=== PATIENT | female | born 1960 | race Caucasian/White ===

== ENCOUNTER 2017-08-07 18:09 | Emergency (ER) | payer OTHER, BC ==
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
[2017-08-07] MEDS ORDERED: HYDROmorphone 1 MG/ML 1 ML SYRINGE IVP STA (19:09)
[2017-08-07] MEDS ORDERED: hydrALAZINE HCL 20 MG/ML 1 ML VIAL IVP STA (19:09)
[2017-08-07 19:29] VITALS: BP 210/101; PULSE 72; RESP 18; TEMP 97.7
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
[2017-08-07 19:36] LABS: Basophils # (A) 0.1 k/uL (0-0.2); Basophils % (A) 1 %; CHCM 34.1; Eosinophils # (A) 0.4 k/uL (0-0.7); Eosinophils % (A) 4 %; HCT 39.9 % (34.0-46.0); HDW 2.55; HGB 13.8 gm/dL (11.4-16.0); Luc # (Auto) 0.09; Luc % (Auto) 1; Lymphocytes # (A) 1.8 k/uL (1.0-4.8); Lymphocytes % (A) 18 %; MCH 29.5 pg (25.0-35.0); MCHC 34.6 g/dL (31.0-37.0); MCV 85.4 fL (80.0-100.0); Mean Platelet Volume 6.9; Monocytes # (A) 0.4 k/uL (0-1.0); Monocytes % (A) 4 %; Neutrophils % (A) 72 %; RBC 4.68 m/uL (3.80-5.40); RDW 13.5 % (11.5-15.5); WBC 9.8 k/uL (3.8-10.6); WBC (Perox) 9.95
[2017-08-07 19:45] LABS: ALT 33 U/L (9-52); AST 22 U/L (14-36); Alkaline Phosphatase 107 U/L (38-126); Anion Gap 10 mmol/L; Blood Urea Nitrogen 16 mg/dL (7-17); Calcium 9.7 mg/dL (8.4-10.2); Carbon Dioxide 24 mmol/L (22-30); Chloride 108 mmol/L (98-107); Glucose 118 mg/dL (74-99); Non-African American GFR(MDRD) >60 (>60 ml/min/1.73 sqM); Potassium 4.1 mmol/L (3.5-5.1); Sodium 142 mmol/L (137-145); Total Bilirubin 0.4 mg/dL (0.2-1.3); Total Protein 7.4 g/dL (6.3-8.2)
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
--- NOTE | 2017-08-07 21:06 | XR ---
EXAMINATION TYPE: XR chest 2V DATE OF EXAM: 08/07/2017 COMPARISON: NONE HISTORY: Chest pain. TECHNIQUE: Frontal and lateral views of the chest are obtained. FINDINGS: There is a linear strand of atelectasis at the left lung base. The lungs are otherwise magui ar. No pneumothorax or pleural effusion is identified. The cardiac silhouette is within normal limits . IMPRESSION: Linear strand of atelectasis is noted at the left lung base.
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
[2017-08-07] MEDS ORDERED: MORPHINE SULFATE 4 MG/ML SYRINGE IVP STA (21:31)
[2017-08-07] MEDS ORDERED: KETOROLAC 30 MG/ML 1 ML VIAL IVP STA (21:36)
== END 2017-08-07 22:42 | disposition home or self-care (01) ==
LOC: EC 18:09
DX: S16.1XXA Strain of muscle, fascia and tendon at neck level, initial encounter (principal); R51 Headache; M25.561 Pain in right knee; M25.562 Pain in left knee; E03.9 Hypothyroidism, unspecified; Z79.899 Other long term (current) drug therapy; V23.5XXA Motorcycle passenger injured in collision with car, pick-up truck or van in traffic accident, initial encounter; Y92.410 Unspecified street and highway as the place of occurrence of the external cause
CPT/HCPCS: 99284; 96374; 36415; 93005; 80053; 85025; 71020; 72110; 72170; 73564 ×2; 72125; 70450; J1170

== ENCOUNTER 2018-04-24 06:21 | Emergency (ER) | payer BC, OTHER ==
[2018-04-24 06:29] VITALS: BP 175/79; PULSE 82; RESP 18; TEMP 97
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
--- NOTE | 2018-04-24 07:21 | ED ---
General Adult HPI - General Chief complaint: Extremity Injury, Lower Stated complaint: Knee Injury, [facility] Time Seen by Provider: 04/24/18 07:00 Source: patient, RN notes reviewed Mode of arrival: ambulatory Limitations: physical limitation - History of Present Illness Initial comments: This a 57-year-old female who states she was at work tonight when she twisted her knee and felt a pop in the posterior aspect of her knee. Patient states it began to be difficult to stand at that point. Patient states any movement seems to hurt the posterior aspect of her knee. Patient denies any swelling to the knee. Patient denies any instability chest pain. Patient denies any ankle pain or foot pain. patient denies any hip pain. - Related Data Home Medications Medication Instructions Recorded Confirmed HYDROcodone/APAP 5-325MG [[place] 1 tab PO TID PRN 08/07/17 04/24/18 5-325] Levothyroxine Sodium [Synthroid] 88 mcg PO DAILY 08/07/17 04/24/18 Allergies Allergy/AdvReac Type Severity Reaction Status Date / Time No Known Allergies Allergy Verified 04/24/18 06:28 Review of Systems ROS Statement: Those systems with pertinent positive or pertinent negative responses have been documented in the HPI. ROS Other: All systems not noted in ROS Statement are negative. 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 Patient is in mild distress. EYES Patient's pupils are equal and round. Extraocular motion is intact SKIN Unremarkable NEURO The patient is alert and oriented 3 PYSCH Patient has normal interpersonal interactions. MUSCULOSKELETAL Patient's has no ligamentous laxity. Patient's posterior knee is tender to palpation no swelling is noted. Patient has no effusion. Limitations: physical limitation Course Vital Signs 04/24/18 06:25 Temperature 97.0 F L Pulse Rate 82 Respiratory 18 Rate Blood Pressure 175/79 O2 Sat by Pulse 97 Oximetry Disposition Clinical Impression: Knee sprain Disposition: HOME SELF-CARE Instructions: Knee Sprain (ED) Is patient prescribed a controlled substance at d/c from ED?: No Referrals: Hank Ndiaye MD [Primary Care Provider] - 1-2 days Matthew Mo MD [STAFF PHYSICIAN] - 1-2 days Time of Disposition: 07:24
== END 2018-04-24 07:57 | disposition home or self-care (01) ==
LOC: EC 06:21
DX: S83.91XA Sprain of unspecified site of right knee, initial encounter (principal); E07.9 Disorder of thyroid, unspecified; F17.200 Nicotine dependence, unspecified, uncomplicated; Z79.899 Other long term (current) drug therapy; X50.1XXA Overexertion from prolonged static or awkward postures, initial encounter; Y93.01 Activity, walking, marching and hiking; Y92.69 Other specified industrial and construction area as the place of occurrence of the external cause; Y99.0 Civilian activity done for income or pay
CPT/HCPCS: 73562; 99283; L1830

== ENCOUNTER → 2018-04-24 | Outpatient (CLI) | payer OTHER ==
--- NOTE | 2018-04-24 13:20 | CT ---
EXAMINATION TYPE: CT knee RT wo con DATE OF EXAM: 04/24/2018 COMPARISON: NONE HISTORY: Rt knee internal derangement, Pt states knee gave out CT DLP: 369 mGycm Automated exposure control for dose reduction was used. Unenhanced CT of the right knee was performed in the axial coronal and sagittal planes with bone and soft tissue window settings submitted. FINDINGS: I do not see evidence for a displaced fracture or dislocation. Small suprapatellar joint effusion is noted. Mild patellar spurring is identified. Mild narrowing medial tibiofemoral joint space. Intercon dylar spur formation is mild degree. Meniscal, ligamentous and tendinous structures are limited in ev aluation. If symptoms persist consider MRI correlation. IMPRESSION: 1. NO EVIDENCE FOR ACUTE FRACTURE OR DISLOCATION. 2. MILD DEGENERATIVE CHANGE. 3. JOINT EFFUSION.
== END | disposition home or self-care (01) ==
LOC: RADXRMAIN 12:40
PROVIDERS: ATTEND Emergency Medicine
DX: M25.462 Effusion, left knee (principal)

== ENCOUNTER → 2018-11-15 | Outpatient (CLI) | payer BC ==
--- NOTE | 2018-11-16 14:47 | MM ---
Reason for exam: screening (asymptomatic). History: Patient is postmenopausal. Physical Findings: A clinical breast exam by your physician is recommended on an annual basis and results should be correlated with mammographic findings. MG Screening Mammo w CAD Bilateral CC and MLO view(s) were taken. No prior studies available for comparison. The breast tissue is heterogeneously dense. This may lower the sensitivity of mammography. There is no discrete abnormality. No significant changes when compared with prior studies. ASSESSMENT: Benign, BI-RAD 2 RECOMMENDATION: Routine screening mammogram of both breasts in 1 year.
== END ==
LOC: RADMAMWWP 06:47
PROVIDERS: ATTEND Internal Medicine
DX: Z12.31 Encounter for screening mammogram for malignant neoplasm of breast (principal)
CPT/HCPCS: 77067

== ENCOUNTER 2019-02-07 06:13 | Observation (INO) | payer BC ==
[2019-02-07 06:59] LABS: Basophils # (A) 0.1 k/uL (0-0.2); Basophils % (A) 0 %; Eosinophils # (A) 0.4 k/uL (0-0.7); Eosinophils % (A) 3 %; HCT 42.8 % (34.0-46.0); HGB 13.8 gm/dL (11.4-16.0); Lymphocytes # (A) 1.8 k/uL (1.0-4.8); Lymphocytes % (A) 14 %; MCH 27.5 pg (25.0-35.0); MCHC 32.1 g/dL (31.0-37.0); MCV 85.5 fL (80.0-100.0); Mean Platelet Volume 7.4; Monocytes # (A) 0.6 k/uL (0-1.0); Monocytes % (A) 4 %; Neutrophils # (A) 10.6 k/uL (1.3-7.7); Neutrophils % (A) 78 %; Platelet Count 309 k/uL (150-450); RBC 5.01 m/uL (3.80-5.40); RDW 14.3 % (11.5-15.5); WBC 13.5 k/uL (3.8-10.6)
[2019-02-07 07:11] LABS: Albumin 4.7 g/dL (3.5-5.0); Calcium 10.1 mg/dL (8.4-10.2); Magnesium 1.9 mg/dL (1.6-2.3); Total Bilirubin 0.8 mg/dL (0.2-1.3); Total Protein 8.1 g/dL (6.3-8.2)
[2019-02-07 07:12] LABS: Potassium 4.6 mmol/L (3.5-5.1)
--- NOTE | 2019-02-07 07:13 | XR ---
EXAMINATION TYPE: XR chest 2V DATE OF EXAM: 02/07/2019 COMPARISON: Chest x-ray August 07, 2017 HISTORY: Chest pain. TECHNIQUE: Frontal and lateral views of the chest are obtained. FINDINGS: Overlying EKG leads are seen. There is chronic parenchymal change without suspicious air sp josy opacity, pleural effusion, or pneumothorax seen. The cardiac silhouette size is upper limits of normal. Slight S-shaped scoliotic curvature is present. IMPRESSION: Chronic parenchymal changes without acute pulmonary process.
[2019-02-07 07:18] LABS: Partial Thromboplastin Time 27.7 sec (22.0-30.0); Prothrombin Time 10.6 sec (9.0-12.0)
--- NOTE | 2019-02-07 07:47 | ED ---
Chest Pain HPI - General Chief Complaint: Chest Pain Stated Complaint: Chest Pain/Lightheaded/Cold Sweat Time Seen by Provider: 02/07/19 06:38 Source: patient Mode of arrival: wheelchair Limitations: no limitations - History of Present Illness Initial Comments: Lily is a 58-year-old female with a history of hypothyroid who presents the emergency department this morning for evaluation of pressure-like retrosternal chest pain with associated lightheadedness and diaphoresis. Patient reports the pain started suddenly this morning, was initially 10 on 10 intensity has improved somewhat upon arrival he emergency department. Patient has no known cardiac history. She denies any history of hypertension or hyperlipidemia. She is a smoker. She's never been evaluated by cardiology. - Related Data Home Medications Medication Instructions Recorded Confirmed HYDROcodone/APAP 5-325MG [[place] 1 tab PO QID PRN 08/07/17 02/07/19 5-325] Ibuprofen [Motrin] 800 mg PO TID PRN 02/07/19 02/07/19 Levothyroxine Sodium [Synthroid] 100 mcg PO DAILY 02/07/19 02/07/19 Allergies Allergy/AdvReac Type Severity Reaction Status Date / Time No Known Allergies Allergy Verified 02/07/19 07:33 Review of Systems ROS Statement: Those systems with pertinent positive or pertinent negative responses have been documented in the HPI. ROS Other: All systems not noted in ROS Statement are negative. EKG Findings - EKG Comments: EKG Findings:: EKG obtained at 6:31 AM, rate is 79 rhythm is sinus there is a normal axis and normal intervals , IN 192, QRS 82, QTc 449, no acute ST elevations or depressions no evidence of acute ischemia or infarction. 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 Patient is nontoxic and well- hydrated and is in no distress. HENT: Normocephalic, Atraumatic. EYES: PERRL, EOMI PULMONARY: Unlabored respirations. No audible rales rhonchi or wheezing was noted. CARDIOVASCULAR: There is a regular rate and rhythm without any murmurs gallops or rubs. ABDOMEN: Soft and nontender with normal bowel sounds. SKIN: Skin is clear with no lesions or rashes and otherwise unremarkable. : Deferred NEUROLOGIC: Patient is alert and oriented x3. Moving all extremities spontaneously MUSCULOSKELETAL: Normal extremities with adequate strength and full range of motion. No lower extremity swelling or edema. No calf tenderness. PSYCHIATRIC: Normal psychiatric evaluation. Limitations: no limitations Limitations: no limitations Course Vital Signs 02/07/19 02/07/19 06:18 07:02 Temperature 98.2 F Pulse Rate 83 78 Respiratory 18 18 Rate Blood Pressure 166/83 168/77 O2 Sat by Pulse 97 99 Oximetry Chest Pain MDM - [facility] The patient was seen and evaluated history is obtained from patient and at bed side This is a 58-year-old obese female smoker noted to be hypertensive who presents to the emergency department today for evaluation of retrosternal chest pain with associated shortness of breath and diaphoresis This history and physical exam are concerning for cardiac etiology of chest pain Heart score 5 - age, risk factors, history EKG was nonischemic, chest x-ray no acute findings, treatment initial troponin was negative however given the immediate onset of chest pain do feel the patient warrants further evaluation serial troponins and valuation by cardiology. Patient care was discussed with her primary care physician Dr. Ndiaye who is with this plan excepts the patient observation with a consult to cardiology. Admission orders were placed Disposition Clinical Impression: Chest pain Disposition: ADMITTED IP TO THIS HOSP Condition: Stable Is patient prescribed a controlled substance at d/c from ED?: No Referrals: Hank Ndiaye MD [Primary Care Provider] - 1-2 days
[2019-02-07] MEDS ORDERED: NITROGLYCERIN SL TABS 0.4 MG TAB SUBLINGUAL PRN (08:09)
[2019-02-07] MEDS ORDERED: PNEUMOCOCCAL VACC-PNEUMOVAX 23 25 MCG/0.5 ML VIAL IM ONE (11:09)
--- NOTE | 2019-02-07 14:18 | ECHOF ---
Referral Reason:chest pain MEASUREMENTS -------- HEIGHT: 152.4 cm WEIGHT: 90.7 kg BP: 140/55 RVIDd: 3.0 cm (< 3.3) IVSd: 1.2 cm (0.6 - 1.1) LVIDd: 3.9 cm (3.9 - 5.3) LVPWd: 1.1 cm (0.6 - 1.1) IVSs: 1.7 cm LVIDs: 2.2 cm LVPWs: 1.6 cm LA Diam: 3.2 cm (2.7 - 3.8) LAESV Index (A-L): 27.84 ml/m Ao Diam: 3.2 cm (2.0 - 3.7) AV Cusp: 1.6 cm (1.5 - 2.6) MV EXCURSION: 11.236 mm (> 18.000) MV EF SLOPE: 35 mm/s (70 - 150) EPSS: 0.4 cm MV E Rene: 0.81 m/s MV DecT: 268 ms MV A Rene: 1.04 m/s MV E/A Ratio: 0.79 RAP: 5.00 mmHg RVSP: 30.01 mmHg FINDINGS -------- Sinus rhythm. This was a technically adequate study. The left ventricular size is normal. There is borderline concentric left ventricular hypertrophy. Overall left ventricular systolic function is normal with, an EF between 60 - 65 %. The right ventricle is normal in size. Normal LA size by volume 22+/-6 ml/m2. The right atrium is normal in size. The aortic valve is trileaflet and appears structurally normal. There is trace mitral regurgitation. Mild tricuspid regurgitation present. Right ventricular systolic pressure is normal at < 35 mmHg. There is no pulmonic regurgitation present. The aortic root size is normal. Normal inferior vena cava with normal inspiratory collapse consistent with estimated right atrial pre ssure of 5 mmHg. There is no pericardial effusion. CONCLUSIONS -------- 1. Sinus rhythm. 2. This was a technically adequate study. 3. The left ventricular size is normal. 4. There is borderline concentric left ventricular hypertrophy. 5. Overall left ventricular systolic function is normal with, an EF between 60 - 65 %. 6. The right ventricle is normal in size. 7. Normal LA size by volume 22+/-6 ml/m2. 8. The right atrium is normal in size. 9. The aortic valve is trileaflet and appears structurally normal. 10. There is trace mitral regurgitation. 11. Mild tricuspid regurgitation present. 12. Right ventricular systolic pressure is normal at < 35 mmHg. 13. There is no pulmonic regurgitation present. 14. The aortic root size is normal. 15. Normal inferior vena cava with normal inspiratory collapse consistent with estimated right atrial pressure of 5 mmHg. 16. There is no pericardial effusion. OCCUPATIONAL SAFETY AND HEALTH MANAGER: Lauren Varghese RDCS
[2019-02-07] MEDS ORDERED: ACETAMINOPHEN TAB 325 MG TAB PO PRN (15:00)
[2019-02-07] MEDS ORDERED: ONDANSETRON 4 MG/2 ML VIAL IVP PRN (15:00)
--- NOTE | 2019-02-07 16:11 | P.HPIM ---
History of Present Illness H&P Date: 02/07/19 This is a 58-year-old female patient presenting to the ER with complaints of chest pain. Patient reports that chest pain started throughout night while she was at work. Patient reports that she became diaphoretic. Patient denies any significant cardiac history for self but does report that her father and brothers both had MIs. Patient's additional medical history includes osteoarthritis, hypothyroidism and recent sinus infection. Chest x-ray completed showing chronic parenchymal changes without acute pulmonary process. EKG completed showing normal sinus rhythm. Possible left atrial enlargement. Troponin negative. Cardiology services have been consulted. At this time patient denies any chest pain or shortness of breath. Patient denies nausea vomiting or diarrhea. Patient denies any urinary burning patient's white blood cell slightly elevated at 13.5. Will order urinary analysis. Review of Systems please refer to HPI otherwise unremarkable Past Medical History Past Medical History: Osteoarthritis (OA), Thyroid Disorder Additional Past Medical History / Comment(s): Chronic cervical pain/herniated disks in neck, arthritis in knees/feet, recent sinus infection treated with anti biotic. History of Any Multi-Drug Resistant Organisms: None Reported Past Surgical History: Orthopedic Surgery, Tubal Ligation Additional Past Surgical History / Comment(s): R knee arthroscopy Past Anesthesia/Blood Transfusion Reactions: No Reported Reaction Past Psychological History: No Psychological Hx Reported Additional Psychological History / Comment(s): Pt resides with her spouse. She works 6pm-6am for [employer]. She does alot of lifting, pushing and pulling. She does not drive, her spouse drives. Smoking Status: Current every day smoker Past Alcohol Use History: None Reported Additional Past Alcohol Use History / Comment(s): Pt started smoking in 1974 and is a ppd smoker. Past Drug Use History: None Reported - Past Family History Father Additional Family Medical History / Comment(s): Father had heart problems. He had surgery and "it didn't go too well" and he . Mother Family Medical History: Cancer Additional Family Medical History / Comment(s): Mother of lung cancer at the age of 70 yrs. Medications and Allergies Home Medications Medication Instructions Recorded Confirmed Type HYDROcodone/APAP 5-325MG [[place] 1 tab PO QID PRN 08/07/17 02/07/19 History 5-325] Ibuprofen [Motrin] 800 mg PO TID PRN 02/07/19 02/07/19 History Levothyroxine Sodium [Synthroid] 100 mcg PO DAILY 02/07/19 02/07/19 History Allergies Allergy/AdvReac Type Severity Reaction Status Date / Time No Known Allergies Allergy Verified 02/07/19 07:33 Physical Exam Vitals: Vital Signs Temp Pulse Resp BP Pulse Ox 02/07/19 12:30 75 20 139/59 98 02/07/19 12:00 74 19 147/58 97 02/07/19 11:30 135/64 02/07/19 11:00 73 18 132/64 96 02/07/19 10:30 77 18 159/62 96 02/07/19 10:00 81 18 160/79 98 02/07/19 09:30 72 19 140/55 98 02/07/19 09:00 71 19 152/77 96 02/07/19 08:30 76 21 145/75 97 02/07/19 08:00 73 18 165/78 97 02/07/19 07:02 78 18 168/77 99 02/07/19 06:18 98.2 F 83 18 166/83 97 Intake and Output 02/07/19 02/07/19 02/07/19 06:59 14:59 22:59 Other: Weight 90.718 kg Head normocephalic Neck supple Lungs clear to auscultation bilaterally no wheezing or crackles Heart regular rate and rhythm S1-S2, no rub or gallop Abdomen is soft nontender nondistended positive bowel sounds no hepatosplenomegaly Extremities no edema Neuro alert and orientated to 3 Results CBC & Chem 7: 02/07/19 06:34 02/07/19 06:34 Labs: Abnormal Lab Results - Last 24 Hours (Table) 02/07/19 02/07/19 Range/Units 06:34 06:34 WBC 13.5 H (3.8-10.6) k/uL Neutrophils # 10.6 H (1.3-7.7) k/uL Chloride 108 H (98-107) mmol/L Carbon Dioxide 21 L (22-30) mmol/L BUN 28 H (7-17) mg/dL Glucose 152 H (74-99) mg/dL Thrombosis Risk Factor Assmnt - Choose All That Apply Any of the Below Risk Factors Present?: Yes Each Factor Represents 1 point: Age 41-60 years, Obesity (BMI >25) Other Risk Factors: No Other congenital or acquired thrombophilia - If yes, enter type in comment: No Thrombosis Risk Factor Assessment Total Risk Factor Score: 2 Thrombosis Risk Factor Assessment Level: Low Risk Assessment and Plan Assessment: 1. Chest pain. Chest x-ray completed showing chronic changes without acute pul monary process. EKG completed showing normal sinus rhythm. Possible left atrial enlargement. 2-D echo completed showing EF between 60 and 65%. Troponins negative Cardiology services have been consulted. 2. Leukocytosis. Patient denies any signs of acute infection. Will order urinary analysis 3. History of osteoarthritis 4. History of hypothyroidism 5. Nicotine dependence. Nicotine patch has been ordered. Patient educated greater than 3 minutes on smoking sensation DVT prophylaxis Lovenox. GI prophylaxis Protonix. Time with Patient: Greater than 30 (Greater than 60% of the total time spent in counseling and coordination of care. I performed an examination of the patient and discussed their management with the Nurse Practitioner. I have reviewed the Nurse Practitioner's notes and agree with the documented findings and plan of care)
[2019-02-07 17:57] LABS: Appearance,Urine Clear (Clear); Bilirubin,Urine Negative (Negative); Blood,Urine Negative (Negative); Color,Urine Yellow; Glucose,Urine (UA) Negative (Negative); Ketones,Urine Negative (Negative); Leukocyte Esterase,Urine Negative (Negative); Nitrite,Urine Negative (Negative); PH, Urine 5.5 (5.0-8.0); Protein,Urine Trace (Negative); Specific Gravity,Urine 1.018 (1.001-1.035); Urobilinogen,Urine <2.0 mg/dL (<2.0)
[2019-02-07] MEDS: HYDROcodone/APAP 5-325MG 1 EACH TAB PO PRN (19:53)
[2019-02-08] MEDS: HYDROcodone/APAP 5-325MG 1 EACH TAB PO PRN ×2 (05:49→12:23)
[2019-02-08 06:09] LABS: Basophils # (A) 0.1 k/uL (0-0.2); Basophils % (A) 1 %; Eosinophils # (A) 0.4 k/uL (0-0.7); Eosinophils % (A) 5 %; HCT 43.1 % (34.0-46.0); HGB 13.8 gm/dL (11.4-16.0); Lymphocytes # (A) 2.4 k/uL (1.0-4.8); Lymphocytes % (A) 30 %; MCH 27.4 pg (25.0-35.0); MCHC 31.9 g/dL (31.0-37.0); MCV 85.8 fL (80.0-100.0); Mean Platelet Volume 7.3; Monocytes # (A) 0.3 k/uL (0-1.0); Monocytes % (A) 4 %; Neutrophils # (A) 4.9 k/uL (1.3-7.7); Neutrophils % (A) 60 %; Platelet Count 303 k/uL (150-450); RBC 5.02 m/uL (3.80-5.40); RDW 14.4 % (11.5-15.5); WBC 8.1 k/uL (3.8-10.6)
[2019-02-08 06:21] LABS: ALT 28 U/L (9-52); AST 16 U/L (14-36); Alkaline Phosphatase 95 U/L (38-126); Anion Gap 8 mmol/L; Blood Urea Nitrogen 23 mg/dL (7-17); Calcium 9.5 mg/dL (8.4-10.2); Carbon Dioxide 24 mmol/L (22-30); Chloride 110 mmol/L (98-107); Cholesterol 217 mg/dL (<200); Glucose 110 mg/dL (74-99); HDL Cholesterol 52 mg/dL (40-60); LDL Cholesterol,Calculated 153 mg/dL (0-99); Potassium 4.1 mmol/L (3.5-5.1); Sodium 142 mmol/L (137-145); Total Bilirubin 0.6 mg/dL (0.2-1.3); Total Protein 7.1 g/dL (6.3-8.2); Triglycerides 60 mg/dL (<150)
[2019-02-08] MEDS ORDERED: LEVOTHYROXINE 100 MCG TAB PO SCH (06:30)
[2019-02-08] MEDS ORDERED: PANTOPRAZOLE 40 MG TABLET PO SCH (07:30)
[2019-02-08 07:44] VITALS: RESP 18
[2019-02-08] MEDS ORDERED: ENOXAPARIN 40 MG/0.4 ML SYRINGE SQ SCH (09:00)
[2019-02-08] MEDS ORDERED: NICOTINE 14MG/24HR PATCH TRANSDERM SCH (09:00)
[2019-02-08] MEDS ORDERED: ASPIRIN 325 MG TAB PO SCH (09:00)
[2019-02-08] MEDS ORDERED: DOBUTamine DRIP for NUC MED 500 MG in DEXTROSE/WATER 1 250ML.BAG IV ONE (10:37)
--- NOTE | 2019-02-08 11:23 | P.CRDCN ---
History of Present Illness History of present illness: This is a pleasant 58-year-old female past medical history significant for hypothyroidism and chronic nicotine dependence. She also has dyslipidemia that is currently untreated and significant family history with her father dying in his early 50s from heart disease. She denies history of hypertension or diabetes mellitus. We've been asked to see her in consultation for chest pain. 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 2 nights ago she reported to work in her usual state of health but throughout the night she was having sharp heavy sensation in the midsternal region with radiation under the right breast and sometimes into the left scapular region. The symptoms were intermittent from her negative work and were worsening towards the morning. She is quite physically active and on her feet for the entire 12 hour shifts that she is at work. She denies associated shortness of breath, dizziness, nausea, vomiting or diaphoresis. She has been suffering from diarrhea over the previous 2 days and has had 2-3 episodes that night while she was having the chest discomfort. She is seen and examined resting comfortably in bed in no acute distress. She denies any ongoing symptoms of chest discomfort since arriving at the hospital. Echocardiogram obtained on admission reveals preserved left ventricular systolic function with ejection fraction 60- 65%. EKG reveals sinus mechanism heart rate of [address] or T wave abnormalities noted. Chest x-ray is negative for acute cardiopulmonary process with chronic parenchymal changes noted. Laboratory data reviewed, WBC on admission 13.5 repeat this morning 8.1, hemoglobin 13.8, platelets 303, sodium 142, potassium 4.1, creatinine 0.62, magnesium 1.9, cardiac enzymes negative 3, LDL 153, HDL 52 and total cholesterol 217. She takes no daily cardiac medications. At the time of my exam: CONSTITUTIONAL: Denies fever. Denies chills. EYES: Denies blurred vision. Denies vision changes. Denies eye pain. EARS, NOSE, MOUTH & THROAT: Denies headache. Denies sore throat. Denies ear pain. CARDIOVASCULAR: Denies chest pain. Denies shortness of breath. Denies orthopnea. Denies PND. Denies palpitations. RESPIRATORY: Denies cough. GASTROINTESTINAL: Denies abdominal pain. Denies diarrhea. Denies constipation. Denies nausea. Denies vomiting. MUSCULOSKELETAL: Denies myalgias. INTEGUMENTARY: Denies pruitis. Denies rash. NEUROLOGIC: Denies numbness. Denies tingling. Denies weakness. PSYCHIATRIC: Denies anxiety. Denies depression. ENDOCRINE: Denies fatigue. Denies weight change. Denies polydipsia. Denies polyurina. GENITOURINARY: Denies burning, hematuria or urgency with micturation. HEMATOLOGIC: Denies history of anemia. Denies bleeding. Blood pressure 126/71 heart rate 64 afebrile maintaining oxygen saturation on room air GENERAL: This is a 58-year-old female in no apparent distress at the time of my examination. HEENT: Head is atraumatic, normocephalic. Pupils are equal, round. Sclerae anicteric. Conjunctivae are clear. Mucous membranes of the mouth are moist. Neck is supple. There is no jugular venous distention. No carotid bruit is heard. LUNGS: Clear to auscultation no wheezes, rales or rhonchi. No chest wall tenderness is noted on palpation or with deep breathing. HEART: Regular rate and rhythm without murmurs, rubs or gallops. S1 and S2 heard. ABDOMEN: Soft, nontender. Bowel sounds are heard. No organomegaly noted. EXTREMITIES: No evidence of peripheral edema and no calf tenderness noted. VASCULAR: Radial and dorsalis pedis pulses palpated, no evidence of clubbing. NEUROLOGIC: Patient is awake, alert and oriented x3. ASSESSMENT Chest pain, atypical for angina with associated diarrhea. An acute coronary event has been ruled out with no EKG evidence of ischemia and negative cardiac enzymes. Dyslipidemia, untreated Chronic nicotine dependence Hypothyroidism Significant family history for premature coronary artery disease. PLAN An acute coronary event is ruled out with no EKG evidence of ischemia negative cardiac enzymes. Perform dobutamine stress echocardiogram to assess for stress-induced cardiac ischemia. If abnormal will consider coronary angiography. Stress test is normal she is stable from a cardiac perspective. Smoking cessation recommended. Thank you kindly for this consultation. Nurse Practitioner note has been reviewed, I agree with a documented findings and plan of care. Patient was seen and examined. Past Medical History Past Medical History: Osteoarthritis (OA), Thyroid Disorder Additional Past Medical History / Comment(s): Chronic cervical pain/herniated disks in neck, arthritis in knees/feet, recent sinus infection treated with antibiotic. History of Any Multi-Drug Resistant Organisms: None Reported Past Surgical History: Orthopedic Surgery, Tubal Ligation Additional Past Surgical History / Comment(s): R knee arthroscopy Past Anesthesia/Blood Transfusion Reactions: No Reported Reaction Past Psychological History: No Psychological Hx Reported Additional Psychological History / Comment(s): Pt resides with her spouse. She works 6pm-6am for [employer]. She does alot of lifting, pushing and pulling. She does not drive, her spouse drives. Smoking Status: Current every day smoker Past Alcohol Use History: None Reported Additional Past Alcohol Use History / Comment(s): Pt started smoking in 1974 and is a ppd smoker. Past Drug Use History: None Reported - Past Family History Father Additional Family Medical History / Comment(s): Father had heart problems. He had surgery and "it didn't go too well" and he . Mother Family Medical History: Cancer Additional Family Medical History / Comment(s): Mother of lung cancer at the age of 70 yrs. Medications and Allergies Home Medications Medication Instructions Recorded Confirmed Type HYDROcodone/APAP 5-325MG [[place] 1 tab PO QID PRN 08/07/17 02/07/19 History 5-325] Ibuprofen [Motrin] 800 mg PO TID PRN 02/07/19 02/07/19 History Levothyroxine Sodium [Synthroid] 100 mcg PO DAILY 02/07/19 02/07/19 History Allergies Allergy/AdvReac Type Severity Reaction Status Date / Time No Known Allergies Allergy Verified 02/07/19 07:33 Physical Exam Vitals: Vital Signs Temp Pulse Pulse Resp BP BP Pulse Ox 02/08/19 07:42 98.1 F 64 18 126/71 94 L 02/08/19 03:41 98.0 F 69 16 127/75 93 L 02/08/19 03:22 70 16 02/08/19 00:00 70 16 02/07/19 23:31 98.3 F 70 16 140/60 93 L 02/07/19 20:00 81 16 02/07/19 19:55 98.5 F 81 16 139/67 94 L 02/07/19 16:00 97.8 F 65 18 165/77 99 02/07/19 12:30 75 20 139/59 98 02/07/19 12:00 74 19 147/58 97 02/07/19 11:30 135/64 02/07/19 11:00 73 18 132/64 96 02/07/19 10:30 77 18 159/62 96 02/07/19 10:00 81 18 160/79 98 02/07/19 09:30 72 19 140/55 98 02/07/19 09:00 71 19 152/77 96 02/07/19 08:30 76 21 145/75 97 Intake and Output 02/07/19 02/08/19 02/08/19 22:59 06:59 14:59 Intake Total 240 Balance 240 Intake: Oral 240 Other: Voiding Method Toilet Toilet # Voids 2 1 1 Results 02/08/19 05:50 02/08/19 05:50 Cardiac Enzymes 02/07/19 02/07/19 02/08/19 Range/Units 13:11 19:20 05:50 AST 16 (14-36) U/L Troponin I <0.012 <0.012 (0.000-0.034) ng/mL Lipids 02/08/19 Range/Units 05:50 Triglycerides 60 (<150) mg/dL Cholesterol 217 H (<200) mg/dL HDL Cholesterol 52 (40-60) mg/dL CBC 02/08/19 Range/Units 05:50 WBC 8.1 (3.8-10.6) k/uL RBC 5.02 (3.80-5.40) m/uL Hgb 13.8 (11.4-16.0) gm/dL Hct 43.1 (34.0-46.0) % Plt Count 303 (150-450) k/uL Comprehensive Metabolic Panel 02/08/19 Range/Units 05:50 Sodium 142 (137-145) mmol/L Potassium 4.1 (3.5-5.1) mmol/L Chloride 110 H (98-107) mmol/L Carbon Dioxide 24 (22-30) mmol/L BUN 23 H (7-17) mg/dL Creatinine 0.62 (0.52-1.04) mg/dL Glucose 110 H (74-99) mg/dL Calcium 9.5 (8.4-10.2) mg/dL AST 16 (14-36) U/L ALT 28 (9-52) U/L Alkaline Phosphatase 95 (38-126) U/L Total Protein 7.1 (6.3-8.2) g/dL Albumin 4.0 (3.5-5.0) g/dL Current Medications Generic Name Dose Route Start Last Admin Trade Name Freq PRN Reason Stop Dose Admin Acetaminophen 650 mg 02/07/19 15:00 Tylenol Tab PO Q6HR PRN Fever and/ or MILD Pain Hydrocodone Bitart/Acetaminophen 1 each 02/07/19 15:00 02/08/19 05:49 [place] 5-325 PO 1 each QID PRN Administration MODERATE Pain Aspirin 325 mg 02/08/19 09:00 Aspirin PO DAILY [facility] Enoxaparin Sodium 40 mg 02/08/19 09:00 Lovenox SQ DAILY [facility] Levothyroxine Sodium 100 mcg 02/08/19 06:30 02/08/19 05:49 Synthroid PO 100 mcg DAILY@0630 [facility] Administration Nicotine 1 patch 02/08/19 09:00 Habitrol 14mg/24hr Patch TRANSDERM DAILY [facility] Nitroglycerin 0.4 mg 02/07/19 08:09 Nitrostat SUBLINGUAL Q5M PRN Chest Pain Ondansetron HCl 4 mg 02/07/19 15:00 Zofran IVP Q6HR PRN Vomiting Pantoprazole Sodium 40 mg 02/08/19 07:30 Protonix PO AC-BRKFST LOIS Intake and Output 02/07/19 02/08/19 02/08/19 22:59 06:59 14:59 Intake Total 240 Balance 240 Intake: Oral 240 Other: Voiding Method Toilet Toilet # Voids 2 1 1 02/08/19 05:50 02/08/19 05:50
[2019-02-08] MEDS ORDERED: ONDANSETRON 4 MG/2 ML VIAL ONE (11:44)
[2019-02-08 12:35] VITALS: BP 136/78; PULSE 78; TEMP 98.5
--- NOTE | 2019-02-08 13:55 | ECHOS ---
STRESS ECHOCARDIOGRAM INDICATIONS: Chest pain. BASELINE HEART RATE: 65 BASELINE BLOOD PRESSURE: 142/67 MAXIMUM HEART RATE: 120 MAXIMUM BLOOD PRESSURE: 176/51 85% MPHR: 137 100% MPHR: 161 MAXIMUM STAGE REACHED: 5 TOTAL EXERCISE TIME: 12:00 CLINICAL INFORMATION: Patient was given dobutamine infusion according to the standard protocol. After the at the peak dose of dobutamine infusion, the patient complained of nausea and developed some bradycardia and so the test was discontinued. The peak heart rate of 120, was achieved. Maximum blood pressure of 176/51 mmHg was noted. Resting EKG shows normal sinus rhythm with normal KS interval and QRS duration and normal ST-T waves. No ST- segment depression suggestive of ischemia is noted. The baseline echocardiographic images reveal normal left ventricular chamber size with normal left ventricular systolic function. At the peak dose of dobutamine infusion, normal increase in the wall thickness and contractility is noted. FINAL IMPRESSION: 1. This dobutamine stress echocardiographic study is not suggestive of ischemia to the heart rate of 120. Patient did not achieve the 85% age predicted heart rate. 2. Patient became nauseated and developed some junctional bradycardia with the dobutamine infusion. MMODL / IJN: [id number] /
--- NOTE | 2019-02-08 14:23 | P.DS ---
Providers Date of admission: 02/07/19 08:09 Expected date of discharge: 02/08/19 Attending physician: Hank Ndiaye Consults: 02/07/19 08:09 Consult Physician Urgent Consulting Provider: [facility] Consult Reason/Comments: chest pain, HTN, smoker Do you want consulting provider notified?: Yes, Notify in am Primary care physician: Hank Ndiaye [facility] Course: Discharge diagnosis 1. Chest pain. No evidence acute coronary syndrome. DC ruled out. Pain could be secondary to musculoskeletal. She did have tenderness with palpation of the chest wall. Continue with her current home pain medication. Dobutamine stress echo not suggestive of ischemia. Patient developed some junctional bradycardia per cardiology this is likely reaction to the dobutamine infusion. Cardiology has cleared patient for discharge and they'll follow up with her in the office in one week. Chest x-ray completed showing chronic changes without acute pulmonary process. EKG completed showing normal sinus rhythm. Possible left atrial enlargement. 2-D echo completed showing EF between 60 and 65%. Troponins negative 2. Leukocytosis . No evidence of infection. Urinalysis negative. White count has normalized. 3. History of osteoarthritis 4. History of hypothyroidism 5. Nicotine dependence. Patient educated greater than 3 minutes on smoking sensation Hospital course This is a 58-year-old female patient presenting to the ER with complaints of chest pain. Patient reports that chest pain started throughout night while she was at work. Patient reports that she became diaphoretic. Patient denies any significant cardiac history for self but does report that her father and brothers both had MIs. Patient's additional medical history includes osteoarthritis, hypothyroidism and recent sinus infection. Chest x-ray completed showing chronic parenchymal changes without acute pulmonary process. EKG completed showing normal sinus rhythm. Possible left atrial enlargement. Troponin negative. Cardiology services have been consulted. At this time patient denies any chest pain or shortness of breath. Patient denies nausea vomiting or diarrhea. Patient denies any urinary burning patient's white blood cell slightly elevated at 13.5. Will order urinary analysis. Patient's chest pain has shown improvement. She has been seen by cardiology and cleared for discharge. Dobutamine stress test was negative for any ischemia. And there is no evidence of myocardial infarction. Patient will follow up with cardiology in the office in one week. Patient did have junctional bradycardia noted on dobutamine stress echo likely a reaction due to the dobutamine infusion per cardiology. Patient does take levothyroxine at home. Would recommend checking a TSH level in the office at her follow-up visit with Dr. Ndiaye. Patient is medically stable for discharge. We'll have her follow-up with cardiology in [address] Ndiaye week. Please refer to chart for any further details. Patient was also given a work excuse note I performed an examination of the patient and discussed their management with the physician Truck Driver Helper. I have reviewed the Physician Truck Driver Helper's notes and agree with the documented findings and plan of care Patient Condition at Discharge: Stable Plan - Discharge Summary Discharge Rx Participant: No New Discharge Prescriptions: Continue HYDROcodone/APAP 5-325MG [[place] 5-325] 1 tab PO QID PRN PRN Reason: Pain Levothyroxine Sodium [Synthroid] 100 mcg PO DAILY Ibuprofen [Motrin] 800 mg PO TID PRN PRN Reason: Pain Discharge Medication List HYDROcodone/APAP 5-325MG [[place] 5-325] 1 tab PO QID PRN 08/07/17 [History] Ibuprofen [Motrin] 800 mg PO TID PRN 02/07/19 [History] Levothyroxine Sodium [Synthroid] 100 mcg PO DAILY 02/07/19 [History] Follow up Appointment(s)/Referral(s): Hank Ndiaye MD [Primary Care Provider] - 1 Week Leandro Magallon MD [STAFF PHYSICIAN] - 1 Week Activity/Diet/Wound Care/Special Instructions: Diet: regular Activity: as tolerated Discharge Disposition: HOME SELF-CARE
== END 2019-02-08 16:07 | disposition home or self-care (01) ==
LOC: EC 06:13 → 1SOBS 08:09
PROVIDERS: ADMIT Internal Medicine; ATTEND Internal Medicine
DX: R07.2 Precordial pain (principal); R61 Generalized hyperhidrosis; R00.1 Bradycardia, unspecified; R42 Dizziness and giddiness; R06.02 Shortness of breath; D72.829 Elevated white blood cell count, unspecified; R19.7 Diarrhea, unspecified; E03.9 Hypothyroidism, unspecified; E78.5 Hyperlipidemia, unspecified; E66.9 Obesity, unspecified; Z68.39 Body mass index [BMI] 39.0-39.9, adult; Z79.890 Hormone replacement therapy; I10 Essential (primary) hypertension; M17.0 Bilateral primary osteoarthritis of knee; M50.20 Other cervical disc displacement, unspecified cervical region; F17.210 Nicotine dependence, cigarettes, uncomplicated; Z82.49 Family history of ischemic heart disease and other diseases of the circulatory system; Z80.1 Family history of malignant neoplasm of trachea, bronchus and lung
CPT/HCPCS: 96372; 99285; 36415; 93005; 93306; 93351; 80061; 80053 ×2; 83735; 84484; 85025 ×2; 85610; 85730; 81003; 71046; G0378 ×2; S4990; J1250; J1650

== ENCOUNTER 2019-03-07 14:05 | Inpatient (IN) | payer BC ==
[2019-03-07] MEDS ORDERED: ATROPINE SULFATE 0.1 MG/ML 10ML SYRINGE IVP ONE (14:13)
[2019-03-07] MEDS ORDERED: DOPamine DRIP 800 MG in DEXTROSE/WATER 1 250ML.BAG IV ONE (14:14)
[2019-03-07] MEDS ORDERED: LIDOCAINE 1% INJ 10MG/ML (20 ML MDV) SQ ONE (14:17)
[2019-03-07] MEDS ORDERED: HYDROmorphone 2 MG/ML 1 ML SYRINGE IVP ONE (14:21)
[2019-03-07] MEDS ORDERED: SODIUM CHLORIDE 0.9% 1,000 ML IV ONE ×2 (14:25)
[2019-03-07] MEDS ORDERED: BIVALIRUDIN 250 MG in SODIUM CHLORIDE 0.9% 50 ML IV ONE (14:35)
[2019-03-07] MEDS ORDERED: BIVALIRUDIN BOLUS 250 MG/50 ML IV ONE (14:35)
[2019-03-07] MEDS ORDERED: TICAGRELOR 90 MG TAB PO ONE (14:38)
[2019-03-07] MEDS ORDERED: NITROGLYCERIN 1000MCG/10ML SYRINGE INTRACORON ONE (14:39)
[2019-03-07] MEDS ORDERED: IOPAMIDOL-370 100ML BTL INJ ONE (14:51)
[2019-03-07] MEDS ORDERED: NITROGLYCERIN SL TABS 0.4 MG TAB SUBLINGUAL PRN (15:00)
[2019-03-07] MEDS ORDERED: MAG HYDROX/AL HYDROX/SIMETH 30 ML CUP PO PRN (15:00)
[2019-03-07] MEDS ORDERED: SODIUM CHLORIDE 0.9% 1,000 ML IV SCH (15:00)
[2019-03-07] MEDS ORDERED: ATROPINE SULFATE 0.1 MG/ML 10ML SYRINGE IV PRN (15:00)
[2019-03-07] MEDS ORDERED: ZOLPIDEM 5 MG TAB PO PRN (15:00)
[2019-03-07] MEDS ORDERED: RX INFO: IV CONTRAST WAS GIVEN 1 EACH MISC MISCELLANE PRN (15:00)
[2019-03-07] MEDS ORDERED: ONDANSETRON 4 MG/2 ML VIAL ONE (15:01)
[2019-03-07] MEDS ORDERED: ONDANSETRON 4 MG/2 ML VIAL IVP ONE (15:05)
[2019-03-07 15:46] LABS: Glucose,Whole Blood 130 mg/dL (75-99)
--- NOTE | 2019-03-07 16:15 | P.HPIM ---
History of Present Illness H&P Date: 03/07/19 This is a 58-year-old female patient who presented to the ER with complaints of chest pain. Per outpatient was found to have ST elevated MO. Patient was taken to the cardiac Cut Off Saw Operator. Patient reports that she was at home when she started to experience chest pain that radiated up to her neck and head. Patient also became nauseated with episode. Patient with a cardiac skilled laborer and received a stent to the RCA. Patient was recently on 02/08/2019 in which she did undergo dobutamine stress test within the cardiology services. Patient does have a past medical history of nicotine dependence, osteoarthritis and hypothyroidism. At this time patient is post heart cath. Patient feels significantly improved. Chest pain has subsided. Vitals are stable at this time. Patient is in the intensive care unit. ALLERGY services are following. Patient currently on Brilinta for blood thinner. At that time patient denies chest pain or shortness of breath. Patient denies nausea vomiting or diarrhea. Patient denies any urinary burning or frequency. Review of Systems Please refer to HPI otherwise unremarkable Past Medical History Past Medical History: Osteoarthritis (OA), Thyroid Disorder Additional Past Medical History / Comment(s): Chronic cervical pain/herniated disks in neck, arthritis in knees/feet, recent sinus infection treated with antibiotic. History of Any Multi-Drug Resistant Organisms: None Reported Past Surgical History: Orthopedic Surgery, Tubal Ligation Additional Past Surgical History / Comment(s): R knee arthroscopy Past Anesthesia/Blood Transfusion Reactions: No Reported Reaction Past Psychological History: No Psychological Hx Reported Additional Psychological History / Comment(s): Pt resides with her spouse. She works 6pm-6am for [employer]. She does alot of lifting, pushing and pulling. She does not drive, her spouse drives. Smoking Status: Current every day smoker Past Alcohol Use History: None Reported Additional Past Alcohol Use History / Comment(s): Pt started smoking in 1974 and is a ppd smoker. Past Drug Use History: None Reported - Past Family History Father Additional Family Medical History / Comment(s): Father had heart problems. He had surgery and "it didn't go too well" and he . Mother Family Medical History: Cancer Additional Family Medical History / Comment(s): Mother of lung cancer at the age of 70 yrs. Medications and Allergies Home Medications Medication Instructions Recorded Confirmed Type HYDROcodone/APAP 5-325MG [[place] 1 tab PO QID PRN 08/07/17 02/07/19 History 5-325] Ibuprofen [Motrin] 800 mg PO TID PRN 02/07/19 02/07/19 History Levothyroxine Sodium [Synthroid] 100 mcg PO DAILY 02/07/19 02/07/19 History Allergies Allergy/AdvReac Type Severity Reaction Status Date / Time No Known Allergies Allergy Verified 02/07/19 07:33 Physical Exam Vitals: Vital Signs Temp Pulse Resp BP Pulse Ox 03/07/19 16:00 80 14 139/73 96 03/07/19 15:45 73 17 141/94 96 03/07/19 15:30 97.6 F 83 26 H 132/70 90 L Intake and Output 03/07/19 03/07/19 03/07/19 06:59 14:59 22:59 Intake Total 498.4 Balance 498.4 Intake: IV 498.4 Other: Weight 86.9 kg Head normocephalic Neck supple Lungs clear to auscultation bilaterally no wheezing or crackles Heart regular rate and rhythm S1-S2, no rub or gallop Abdomen is soft nontender nondistended positive bowel sounds no hepatosplenomegaly Extremities no edema Neuro alert and orientated to 3 Results Labs: Abnormal Lab Results - Last 24 Hours (Table) 03/07/19 Range/Units 15:34 POC Glucose (mg/dL) 130 H (75-99) mg/dL Assessment and Plan Assessment: 1. ST elevated MO. Patient went to the cardiac Cut Off Saw Operator and received a stent to the RCA. Patient currently on brilinta for blood thinner. Cardiology services are following. 2-D echo has been ordered 2. History of nicotine dependence. Patient educated greater than 3 minutes on smoking cessation. Nicotine patch ordered 3. Hypothyroidism. Synthroid ordered 4. Chronic back pain 5. Osteoarthritis Time with Patient: Greater than 30 (Greater than 60% of the total time spent in counseling and coordination of care. I performed an examination of the patient and discussed their management with the Nurse Practitioner. I have reviewed the Nurse Practitioner's notes and agree with the documented findings and plan of care)
[2019-03-07] MEDS: HYDROcodone/APAP 5-325MG 1 EACH TAB PO PRN (16:48)
[2019-03-07] MEDS: NICOTINE 14MG/24HR PATCH TRANSDERM SCH (16:49)
[2019-03-07 17:45] LABS: Basophils % (A) 0 %; Eosinophils # (A) 0.1 k/uL (0-0.7); Eosinophils % (A) 1 %; HCT 41.1 % (34.0-46.0); HGB 13.6 gm/dL (11.4-16.0); Lymphocytes % (A) 10 %; MCH 28.6 pg (25.0-35.0); MCHC 32.9 g/dL (31.0-37.0); MCV 86.8 fL (80.0-100.0); Mean Platelet Volume 7.3; Monocytes # (A) 0.3 k/uL (0-1.0); Monocytes % (A) 3 %; Neutrophils # (A) 9.1 k/uL (1.3-7.7); Neutrophils % (A) 86 %; Platelet Count 322 k/uL (150-450); RBC 4.74 m/uL (3.80-5.40); RDW 14.7 % (11.5-15.5); WBC 10.6 k/uL (3.8-10.6)
[2019-03-07 18:10] LABS: ALT 38 U/L (9-52); AST 120 U/L (14-36); Albumin 4.1 g/dL (3.5-5.0); Alkaline Phosphatase 105 U/L (38-126); Anion Gap 8 mmol/L; Blood Urea Nitrogen 21 mg/dL (7-17); Calcium 9.2 mg/dL (8.4-10.2); Carbon Dioxide 23 mmol/L (22-30); Chloride 110 mmol/L (98-107); Glucose 118 mg/dL (74-99); Potassium 4.1 mmol/L (3.5-5.1); Sodium 141 mmol/L (137-145); Total Bilirubin 0.6 mg/dL (0.2-1.3)
--- NOTE | 2019-03-07 18:34 | CC ---
CARDIAC CATHETERIZATION REPORT INDICATION: Acute inferior wall myocardial infarction. PROCEDURE NOTE: After obtaining informed consent, left heart catheterization and coronary angiogram were performed via the right femoral artery using standard Roselyn catheters. Patient tolerated the procedure well without any obvious immediate complications. FINDINGS: HEMODYNAMICS: Left ventricular end-diastolic pressure is 12 to 14 mm. There is no significant gradient across the aortic valve. LEFT VENTRICULOGRAM: Left ventriculogram is not performed. ANGIOGRAPHIC DATA: LEFT MAIN CORONARY ARTERY: Left main coronary artery is a normal-sized vessel and is free of stenosis. Divides into left anterior descending coronary artery and circumflex coronary artery. CIRCUMFLEX CORONARY ARTERY gives off a large caliber OM branch that shows a 30% to 40% stenosis. LEFT ANTERIOR DESCENDING CORONARY ARTERY: LAD shows a 60-70 percent stenosis in its midportion. RIGHT CORONARY ARTERY : Right coronary artery is a large dominant vessel that is totally occluded in its midportion with an area of plaque rupture. CONCLUSIONS: 1. Acutely occluded right coronary artery. 2. Moderate to severe stenosis involving the LAD. PLAN: Patient will undergo angioplasty with stent placement of right coronary artery. The patient was in complete heart block coming in and underwent a temporary transvenous pacemaker and also received intravenous dopamine. MMODL / IJN: [id number] /
--- NOTE | 2019-03-07 18:40 | PCN ---
PROCEDURE NOTE INDICATION: Complete heart block. PROCEDURE NOTE: After obtaining informed consent, a temporary transvenous pacemaker was performed via the right femoral vein. A femoral venous access was obtained using modified Seldinger technique and a temporary transvenous pacemaker was floated into the right ventricle. Adequate pacing was obtained. MMTIAGO / EHSAN: [id number] /
--- NOTE | 2019-03-07 18:42 | PTCA ---
PERCUTANEOUSTRANS CORORONARY ANGIOGRAPHY DATE OF SERVICE: March 07, 2019 PERFORMING PHYSICIAN: Sd Rubalcava MD, semaphore operator. PROCEDURE PERFORMED: 1. Aspiration thrombectomy from the right coronary artery with extraction of red thrombus. 2. Successful stenting of the mid right coronary artery using 3.5 x 18 mm Xience JEFFREY which was post dilated using 3.75 mm NC balloon with an excellent angiographic results and reduction of stenosis from 100% to 0%. INDICATION: This is a 58-year-old female patient who is a smoker who presented to the hospital with chest discomfort and was diagnosed with acute inferior ST-elevation myocardial infarction, she underwent a heart catheterization by Dr. Lopez and was found to have acute total occlusion of the right coronary artery. The decision was made towards percutaneous coronary intervention on the right coronary artery. APPROACH: Right common femoral artery. COMPLICATION: None. LEVEL OF SEDATION: Moderate with sedation length of 26 minutes. Door to balloon in 36 minutes. PROCEDURE DESCRIPTION: Please refer to the diagnostic heart catheterization that was performed by Dr. Lopez. Anticoagulation was initiated using Angiomax. Subsequently I did engage the RCA using JR4 guide. A run-through wire was used to wire the right coronary artery and cross the acute total occlusion. The wire was positioned distally in the PDA branch of the RCA. Subsequently I did aspiration thrombectomy from the right coronary artery. There was able to extract large thrombus. After that, I did direct stenting on the lesion using 3.5 x 18 mm Xience drug-eluting stent where the stent was positioned under fluoroscopic guidance and deployed under 16 atmospheres for 20 seconds. After that I post dilated the stent using 3.75 mm NC balloon. The final angiogram showed good angiographic results and the procedure was completed without any complication. POSTPROCEDURE MANAGEMENT: 1. Dual anti-platelet therapy. 2. Risk factor modifications. 3. PCI of the LAD to be staged. MMODL / IJN: [id number] /
--- NOTE | 2019-03-07 18:49 | LTR ---
DATE OF SERVICE: 03/07/[address] Ndiaye: Ms. Lily Cedeño presented to the emergency room with chest discomfort and was diagnosed with acute inferior ST-elevation myocardial infarction. She underwent heart catheterization by Dr. Lopez and was found to have acute total occlusion of the RCA in the midportion. I did perform successful balloon angioplasty and stenting of the RCA with good angiographic results and without any complication. I want to thank you for allowing us to participate in her care and please do not hesitate to call if you have any question or concerns. MMODL / IJN: [id number] /
[2019-03-07] MEDS: TICAGRELOR 90 MG TAB PO SCH (20:00)
[2019-03-07] MEDS: ATORVASTATIN 80 MG TAB PO SCH (20:00)
[2019-03-07] MEDS ORDERED: ONDANSETRON 4 MG/2 ML VIAL IVP PRN (20:25)
[2019-03-07] MEDS ORDERED: HYDROmorphone 0.5 MG/0.5 ML SYRINGE IVP STA (20:25)
[2019-03-08 04:47] LABS: Basophils % (A) 0 %; Eosinophils # (A) 0.1 k/uL (0-0.7); Eosinophils % (A) 1 %; HCT 37.7 % (34.0-46.0); HGB 12.4 gm/dL (11.4-16.0); Lymphocytes # (A) 1.4 k/uL (1.0-4.8); Lymphocytes % (A) 11 %; MCH 28.8 pg (25.0-35.0); MCV 87.4 fL (80.0-100.0); Mean Platelet Volume 7.5; Monocytes # (A) 0.5 k/uL (0-1.0); Monocytes % (A) 4 %; Neutrophils # (A) 10.3 k/uL (1.3-7.7); Neutrophils % (A) 83 %; Platelet Count 298 k/uL (150-450); RBC 4.31 m/uL (3.80-5.40); RDW 14.7 % (11.5-15.5); WBC 12.5 k/uL (3.8-10.6)
[2019-03-08 05:57] LABS: ALT 46 U/L (9-52); AST 152 U/L (14-36); Albumin 3.8 g/dL (3.5-5.0); Alkaline Phosphatase 93 U/L (38-126); Anion Gap 7 mmol/L; Blood Urea Nitrogen 21 mg/dL (7-17); Calcium 9.3 mg/dL (8.4-10.2); Carbon Dioxide 22 mmol/L (22-30); Chloride 111 mmol/L (98-107); Glucose 125 mg/dL (74-99); Potassium 4.2 mmol/L (3.5-5.1); Sodium 140 mmol/L (137-145); Total Bilirubin 0.7 mg/dL (0.2-1.3); Total Protein 6.6 g/dL (6.3-8.2)
[2019-03-08] MEDS: LEVOTHYROXINE 100 MCG TAB PO SCH (06:03)
--- NOTE | 2019-03-08 07:25 | ECHOF ---
Referral Reason:stemi MEASUREMENTS -------- HEIGHT: 154.9 cm WEIGHT: 90.7 kg BP: IVSd: 1.2 cm (0.6 - 1.1) LVIDd: 3.1 cm (3.9 - 5.3) LVPWd: 1.5 cm (0.6 - 1.1) IVSs: 1.8 cm LVIDs: 2.3 cm LVPWs: 1.8 cm LAESV Index (A-L): 18.38 ml/m Ao Diam: 2.9 cm (2.0 - 3.7) AV Cusp: 2.0 cm (1.5 - 2.6) LA Diam: 2.6 cm (2.7 - 3.8) MV EXCURSION: 13.536 mm (> 18.000) MV EF SLOPE: 118 mm/s (70 - 150) EPSS: 1.9 cm RAP: 5.00 mmHg RVSP: 36.84 mmHg FINDINGS -------- Sinus rhythm. This was a technically good study. The left ventricular size is normal. There is mild concentric left ventricular hypertrophy. Overa ll left ventricular systolic function is normal with, an EF between 55 - 60 %. The right ventricle is normal in size. Normal LA size by volume 22+/-6 ml/m2. The right atrial size is normal. The aortic valve is trileaflet and appears structurally normal. The mitral valve leaflets are mildly thickened. Mild mitral regurgitation is present. Mild tricuspid regurgitation present. There is borderline pulmonary artery hypertension. The righ t ventricular systolic pressure, as measured by Doppler, is 36.84mmHg. There is no pulmonic regurgitation present. The aortic root size is normal. Normal inferior vena cava with normal inspiratory collapse consistent with estimated right atrial pre ssure of 5 mmHg. There is no pericardial effusion. CONCLUSIONS -------- 1. Sinus rhythm. 2. This was a technically good study. 3. The left ventricular size is normal. 4. There is mild concentric left ventricular hypertrophy. 5. Overall left ventricular systolic function is normal with, an EF between 55 - 60 %. 6. The right ventricle is normal in size. 7. Normal LA size by volume 22+/-6 ml/m2. 8. The right atrial size is normal. 9. The aortic valve is trileaflet and appears structurally normal. 10. The mitral valve leaflets are mildly thickened. 11. Mild mitral regurgitation is present. 12. Mild tricuspid regurgitation present. 13. There is borderline pulmonary artery hypertension. 14. The right ventricular systolic pressure, as measured by Doppler, is 36.84mmHg. 15. There is no pulmonic regurgitation present. 16. The aortic root size is normal. 17. Normal inferior vena cava with normal inspiratory collapse consistent with estimated right atrial pressure of 5 mmHg. 18. There is no pericardial effusion. BUSINESS DEVELOPER: Katy Munoz RDCS
[2019-03-08] MEDS: NICOTINE 14MG/24HR PATCH TRANSDERM SCH (08:23)
[2019-03-08] MEDS: TICAGRELOR 90 MG TAB PO SCH ×2 (08:24→20:05)
[2019-03-08] MEDS: LISINOPRIL 2.5 MG TAB PO SCH (08:24)
[2019-03-08] MEDS: ASPIRIN 81 MG PO SCH (08:24)
[2019-03-08 10:26] VITALS: BMI 40.1
[2019-03-08 12:55] LABS: Creatine Kinase MB 83.7 ng/mL (0.0-2.4)
[2019-03-08 12:57] LABS: Troponin I 41.4 ng/mL (0.000-0.034)
[2019-03-08] MEDS ORDERED: NITROGLYCERIN SL TABS 0.4 MG TAB SUBLINGUAL PRN (13:30)
[2019-03-08] MEDS ORDERED: ALPRAZolam 0.5 MG TAB PO PRN (13:30)
[2019-03-08] MEDS ORDERED: ALPRAZolam 0.25 MG TAB PO PRN (13:30)
--- NOTE | 2019-03-08 13:39 | P.PN ---
Subjective Progress Note Date: 03/08/19 This is a 58-year-old female patient who presented to the ER with complaints of chest pain. Per outpatient was found to have ST elevated MO. Patient was taken to the cardiac Sales Officer. Patient reports that she was at home when she started to experience chest pain that radiated up to her neck and head. Patient also became nauseated with episode. Patient with a cardiac qc lab technician and received a stent to the RCA. Patient was recently on 02/08/2019 in which she did undergo dobutamine stress test within the cardiology services. Patient does have a past medical history of nicotine dependence, osteoarthritis and hypothyroidism. At this time patient is post heart cath. Patient feels significantly improved. Chest pain has subsided. Vitals are stable at this time. Patient is in the intensive care unit. ALLERGY services are following. Patient currently on Brilinta for blood thinner. At that time patient denies chest pain or shortness of breath. Patient denies nausea vomiting or diarrhea. Patient denies any urinary burning or frequency. On 03/08/2019 patient remains in the intensive care unit. Patient is alert and oriented 3. Patient did she did have some chest pressure along with nausea throughout night. Patient's heart rate also low in the 50s. At this time patient denies chest pain or shortness of breath. Patient denies nausea vomiting or diarrhea. Patient denies any urinary burning or frequency. Patient is complaining about congestion in her chest. With cough. Will order chest x- ray time Objective - Vital Signs Vital signs: Vital Signs Temp 98.6 F 03/08/19 08:00 Pulse 66 03/08/19 13:01 Resp 23 03/08/19 12:00 BP 122/53 03/08/19 13:01 Pulse Ox 95 03/08/19 12:00 Intake & Output 03/07/19 03/08/19 03/08/19 18:59 06:59 18:59 Intake Total 798.4 500 400 Output Total 700 900 Balance 798.4 -200 -500 Weight 86.9 kg 93.4 kg 93.4 kg Intake: IV 798.4 500 Sodium Chloride 0.9% 1, 300 500 000 ml @ 100 mls/hr IV . Q10H [facility] Rx#:[id number] Oral 400 Output: Urine 700 900 Other: Voiding Method Toilet Toilet Bedpan Bedpan # Voids 0 0 # Bowel Movements 0 - Exam Head normocephalic Neck supple Lungs clear to auscultation bilaterally no wheezing or crackles Heart regular rate and rhythm S1-S2, no rub or gallop Abdomen is soft nontender nondistended positive bowel sounds no hepatosplenomegaly Extremities no edema Neuro alert and orientated to 3 - Labs CBC & Chem 7: 03/08/19 04:25 03/08/19 04:25 Labs: Abnormal Lab Results - Last 24 Hours (Table) 03/07/19 03/07/19 03/07/19 Range/Units 15:34 17:22 17:22 WBC (3.8-10.6) k/uL Neutrophils # 9.1 H (1.3-7.7) k/uL Chloride 110 H (98-107) mmol/L BUN 21 H (7-17) mg/dL Glucose 118 H (74-99) mg/dL POC Glucose (mg/dL) 130 H (75-99) mg/dL AST 120 H (14-36) U/L Total Creatine Kinase (30-135) U/L CK-MB (CK-2) (0.0-2.4) ng/mL Troponin I (0.000-0.034) ng/mL 03/08/19 03/08/19 03/08/19 Range/Units 04:25 04:25 04:25 WBC 12.5 H (3.8-10.6) k/uL Neutrophils # 10.3 H (1.3-7.7) k/uL Chloride 111 H (98-107) mmol/L BUN 21 H (7-17) mg/dL Glucose 125 H (74-99) mg/dL POC Glucose (mg/dL) (75-99) mg/dL AST 152 H (14-36) U/L Total Creatine Kinase 1206 H* (30-135) U/L CK-MB (CK-2) 83.7 H (0.0-2.4) ng/mL Troponin I 41.400 H* (0.000-0.034) ng/mL Assessment and Plan Assessment: 1. ST elevated MO. Patient went to the cardiac Sales Officer and received a stent to the RCA. Patient currently on brilinta for blood thinner. Cardiology services are following. 2D echo completed showing an EF of 55-60%. Per cardiology report patient will also likely need intervention to LAD at a later time. 2. History of nicotine dependence. Patient educated greater than 3 minutes on smoking cessation. Nicotine patch ordered 3. Hypothyroidism. Synthroid ordered 4. Chronic back pain 5. Osteoarthritis 6. Increased cough with congestion. Chest x-ray has been ordered. Patient also has mildly elevated white blood cell count at 12.5.
[2019-03-08 13:59] LABS: Troponin I 27.5 ng/mL (0.000-0.034)
--- NOTE | 2019-03-08 15:08 | XR ---
EXAMINATION TYPE: XR chest 1V portable DATE OF EXAM: 03/08/2019 COMPARISON: 02/07/2019 HISTORY: Cough possible pneumonia TECHNIQUE: Single frontal view of the chest is obtained. FINDINGS: There is subsegmental changes at both lung bases. There is no pneumothorax. Biapical pleur al thickening. Heart size stable. Arthropathy of the shoulders. IMPRESSION: Basilar atelectasis favored over pneumonia. Somewhat coarsened interstitium can be seen with interstitial pneumonitis. Correlate clinically.
[2019-03-08] MEDS: HYDROcodone/APAP 5-325MG 1 EACH TAB PO PRN (16:35)
--- NOTE | 2019-03-08 18:41 | PN ---
PROGRESS NOTE Aleena is a 58-year-old lady who was admitted to hospital with acute inferior wall myocardial infarction with complete heart block and underwent emergent pacemaker and cardiac catheterization and angioplasty of right coronary artery. This morning, she is doing well and other than having some episodes of nausea, she is doing very well. She denies chest pain, blood pressure is normal. She has not had any further episodes of bradycardia. She is on aspirin, Lipitor, Brilinta, Zestril. She is not on a beta carter at the moment. I will hold off on starting any as her heart rate is less than 60. She had an echocardiogram that showed normal LV systolic function. On exam, comfortable at rest. Vital signs are stable. Chest exam reveals good air entry bilaterally. Heart exam reveals first and second heart sounds. No gallop. Exam of extremities did not reveal any edema. Peripheral pulses are felt. Tropes are pending at this time. We will obtain a troponin. Hemoglobin is normal at 12.4. Creatinine is 0.5. EKG shows evidence of recent inferior wall myocardial infarction. ASSESSMENT: 1. Acute inferior wall myocardial infarction. 2. Complete heart block related to #1. PLAN: Patient is doing well. She will continue with current medications. She has a moderate to severe stenosis involving LAD and will undergo an FFR and if necessary angioplasty by Dr. Rubalcava tomorrow. MMCARLOSL / LALON: [id number] /
[2019-03-08] MEDS: ATORVASTATIN 80 MG TAB PO SCH (20:05)
[2019-03-09] MEDS: NICOTINE 14MG/24HR PATCH TRANSDERM SCH (05:02)
[2019-03-09] MEDS: LEVOTHYROXINE 100 MCG TAB PO SCH (05:26)
[2019-03-09 05:39] LABS: Basophils % (A) 0 %; Eosinophils # (A) 0.2 k/uL (0-0.7); Eosinophils % (A) 3 %; HCT 34.1 % (34.0-46.0); HGB 11.2 gm/dL (11.4-16.0); Lymphocytes # (A) 1.7 k/uL (1.0-4.8); Lymphocytes % (A) 19 %; MCH 28.3 pg (25.0-35.0); MCHC 32.9 g/dL (31.0-37.0); MCV 86.2 fL (80.0-100.0); Mean Platelet Volume 7.2; Monocytes # (A) 0.5 k/uL (0-1.0); Monocytes % (A) 6 %; Neutrophils # (A) 6.5 k/uL (1.3-7.7); Neutrophils % (A) 71 %; Platelet Count 270 k/uL (150-450); RBC 3.96 m/uL (3.80-5.40); RDW 14.5 % (11.5-15.5); WBC 9.1 k/uL (3.8-10.6)
[2019-03-09 05:54] LABS: ALT 36 U/L (9-52); AST 63 U/L (14-36); Albumin 3.5 g/dL (3.5-5.0); Alkaline Phosphatase 86 U/L (38-126); Anion Gap 5 mmol/L; Blood Urea Nitrogen 17 mg/dL (7-17); Calcium 9.2 mg/dL (8.4-10.2); Carbon Dioxide 25 mmol/L (22-30); Chloride 110 mmol/L (98-107); Glucose 111 mg/dL (74-99); Potassium 4.3 mmol/L (3.5-5.1); Sodium 140 mmol/L (137-145); Total Bilirubin 0.6 mg/dL (0.2-1.3); Total Protein 6.2 g/dL (6.3-8.2)
[2019-03-09] MEDS ORDERED: ASPIRIN 325 MG TAB PO ONE (06:00)
[2019-03-09] MEDS ORDERED: SODIUM CHLORIDE 0.9% 1,000 ML in EMPTY BAG 1 BAG IV ONE (06:00)
[2019-03-09] MEDS ORDERED: ATORVASTATIN 80 MG TAB PO ONE (06:00)
[2019-03-09] MEDS: TICAGRELOR 90 MG TAB PO SCH ×2 (08:33→20:29)
[2019-03-09] MEDS: PANTOPRAZOLE 40 MG TABLET PO SCH (08:33)
[2019-03-09] MEDS: LISINOPRIL 2.5 MG TAB PO SCH (08:33)
[2019-03-09] MEDS: ASPIRIN 81 MG PO SCH (08:41)
[2019-03-09] MEDS ORDERED: IV FLUID CONTINUATION 950 ML IV ONE ×2 (08:57)
[2019-03-09] MEDS ORDERED: LIDOCAINE 1% INJ 10MG/ML (20 ML MDV) ONE (08:58)
--- NOTE | 2019-03-09 09:12 | XR ---
EXAMINATION TYPE: XR chest 1V portable DATE OF EXAM: 03/09/2019 COMPARISON: 03/08/2019 HISTORY: Cough TECHNIQUE: Single frontal view of the chest is obtained. FINDINGS: There is subsegmental changes at both lung bases. There is no pneumothorax. Biapical pleur al thickening. Heart size stable. Arthropathy of the shoulders. IMPRESSION: Basilar atelectasis favored over pneumonia. Somewhat coarsened interstitium can be seen w ith interstitial pneumonitis. Correlate clinically. Findings stable.
[2019-03-09] MEDS: MIDAZOLAM (PF) 2 MG/2 ML VIAL IV ONE ×2 (09:21→09:25)
[2019-03-09] MEDS ORDERED: LIDOCAINE 1% INJ 10MG/ML (20 ML MDV) SQ ONE (09:23)
[2019-03-09] MEDS ORDERED: BIVALIRUDIN BOLUS 250 MG/50 ML IV ONE (09:31)
[2019-03-09] MEDS ORDERED: BIVALIRUDIN 250 MG in SODIUM CHLORIDE 0.9% 50 ML IV ONE (09:31)
[2019-03-09] MEDS ORDERED: IOPAMIDOL-370 100ML BTL INJ ONE (09:54)
[2019-03-09] MEDS ORDERED: MAG HYDROX/AL HYDROX/SIMETH 30 ML CUP PO PRN (09:56)
[2019-03-09] MEDS ORDERED: ZOLPIDEM 5 MG TAB PO PRN (09:56)
[2019-03-09] MEDS ORDERED: NITROGLYCERIN SL TABS 0.4 MG TAB SUBLINGUAL PRN (09:56)
[2019-03-09] MEDS ORDERED: ATROPINE SULFATE 0.1 MG/ML 10ML SYRINGE IV PRN (09:56)
[2019-03-09] MEDS ORDERED: RX INFO: IV CONTRAST WAS GIVEN 1 EACH MISC MISCELLANE PRN (09:56)
[2019-03-09] MEDS ORDERED: SODIUM CHLORIDE 0.9% 1,000 ML IV SCH (10:00)
--- NOTE | 2019-03-09 10:24 | LTR ---
March 09, 2019 Re: Lily Davidson Dear Dr. Ndiaye: Ms. Lily Cedeño underwent today successful stenting of the proximal and mid LAD with good angiographic results and without any complication. Thank you for allowing us to participate in her care and please do not hesitate to call for any questions or concerns. Sincerely, MD SANTOSH Cortez / EHSAN: [id number] /
--- NOTE | 2019-03-09 10:31 | P.PN ---
Subjective Progress Note Date: 03/09/19 This is a 58-year-old female patient who presented to the ER with complaints of chest pain. Per outpatient was found to have ST elevated [place]. Patient was taken to the cardiac Mosaic Worker. Patient reports that she was at home when she started to experience chest pain that radiated up to her neck and head. Patient also became nauseated with episode. Patient with a cardiac animal laboratory helper and received a stent to the RCA. Patient was recently on 02/08/2019 in which she did undergo dobutamine stress test within the cardiology services. Patient does have a past medical history of nicotine dependence, osteoarthritis and hypothyroidism. At this time patient is post heart cath. Patient feels significantly improved. Chest pain has subsided. Vitals are stable at this time. Patient is in the intensive care unit. ALLERGY services are following. Patient currently on Brilinta for blood thinner. At that time patient denies chest pain or shortness of breath. Patient denies nausea vomiting or diarrhea. Patient denies any urinary burning or frequency. On 03/08/2019 patient remains in the intensive care unit. Patient is alert and oriented 3. Patient did she did have some chest pressure along with nausea throughout night. Patient's heart rate also low in the 50s. At this time patient denies chest pain or shortness of breath. Patient denies nausea vomiting or diarrhea. Patient denies any urinary burning or frequency. Patient is complaining about congestion in her chest. With cough. Will order chest x- ray time On 03/09/2019 patient remains in the intensive care unit. Patient is status post cardiac cath today which she received 2 stents to the LAD. Patient is currently resting comfortably in bed. Patient remains on Brilinta for anticoagulation. At this time patient denies chest pain or shortness breath. Patient denies nausea vomiting or diarrhea. Patient denies any urinary burning or frequency. Objective - Vital Signs Vital signs: Vital Signs Temp 98.0 F 03/09/19 08:00 Pulse 71 03/09/19 08:00 Resp 14 03/09/19 08:00 BP 148/72 03/09/19 08:00 Pulse Ox 95 03/09/19 08:00 Intake & Output 03/08/19 03/09/19 03/09/19 18:59 06:59 18:59 Intake Total 400 93.4 127 Output Total 1200 Balance -800 93.4 127 Weight 93.4 kg 93.6 kg Intake: IV 93.4 127 Sodium Chloride 0.9% 1, 93.4 000 ml In Empty Bag 1 bag @ 1 ML/KG/HR 93.4 mls/hr IV .[id number] [facility] Rx#: [id number] Oral 400 Output: Urine 1200 Other: Voiding Method Toilet Toilet Bedpan Bedpan # Voids 0 1 # Bowel Movements 0 - Exam Head normocephalic Neck supple Lungs clear to auscultation bilaterally no wheezing or crackles Heart regular rate and rhythm S1-S2, no rub or gallop Abdomen is soft nontender nondistended positive bowel sounds no hepatosplenomegaly Extremities no edema Neuro alert and orientated to 3 - Labs CBC & Chem 7: 03/09/19 04:56 03/09/19 04:56 Labs: Abnormal Lab Results - Last 24 Hours (Table) 03/08/19 03/08/19 03/09/19 Range/Units 04:25 12:52 04:56 Hgb 11.2 L (11.4-16.0) gm/dL Chloride (98-107) mmol/L Glucose (74-99) mg/dL AST (14-36) U/L Total Creatine Kinase 1206 H* 928 H (30-135) U/L CK-MB (CK-2) 83.7 H 38.0 H (0.0-2.4) ng/mL Troponin I 41.400 H* 27.500 H* (0.000-0.034) ng/mL Total Protein (6.3-8.2) g/dL 03/09/19 Range/Units 04:56 Hgb (11.4-16.0) gm/dL Chloride 110 H (98-107) mmol/L Glucose 111 H (74-99) mg/dL AST 63 H (14-36) U/L Total Creatine Kinase (30-135) U/L CK-MB (CK-2) (0.0-2.4) ng/mL Troponin I (0.000-0.034) ng/mL Total Protein 6.2 L (6.3-8.2) g/dL Assessment and Plan Assessment: 1. ST elevated [place]. Patient went to the cardiac Mosaic Worker and received a stent to the RCA. Patient currently on brilinta for blood thinner. Cardiology services are following. 2D echo completed showing an EF of 55-60%. Patient returned to the cardiac Mosaic Worker this a.m. to follow-up for additional lesions in the LAD. Patient received 2 stents to the LAD. Patient maintained on Brilinta for anticoagulation 2. History of nicotine dependence. Patient educated greater than 3 minutes on smoking cessation. Nicotine patch ordered 3. Hypothyroidism. Synthroid ordered 4. Chronic back pain 5. Osteoarthritis 6. Increased cough with congestion. Chest x-ray has been ordered. Patient also has mildly elevated white blood cell count at 12.5. Chest x-ray completed showing basilar atelectasis favored over pneumonia. Somewhat coarsened interstitial and be seen with interstitial pneumonitis correlate clinically binding stable I performed an examination of the patient and discussed their management with the Nurse Practitioner. I have reviewed the Nurse Practitioner's notes and agree with the documented findings and plan of care
--- NOTE | 2019-03-09 10:35 | PTCA ---
PERCUTANEOUSTRANS CORORONARY ANGIOGRAPHY DATE OF SERVICE: March 09, 2019 PERFORMING PHYSICIAN: Sd Rubalcava MD, engraver hand soft metals. PROCEDURE PERFORMED: 1. Fractional flow reserve FFR of the left anterior descending artery. 2. Successful stenting of the proximal LAD using 3.0 x 18 mm Xience drug-eluting stent with an excellent angiographic result and reduction of stenosis from 70% to 0%. 3. Successful stenting of the mid left anterior descending artery using 2.75 x 18 mm Xience drug-eluting stent with an excellent angiographic result and reduction of stenosis from 70% to 0%. INDICATION: This is a pleasant 58-year-old female patient who presented to the hospital 2 days ago with acute inferior ST-elevation myocardial infarction and underwent an emergent heart catheterization by Dr. Lopez where she was found to have an acute total occlusion of the right coronary artery with plaque rupture and thrombus formation. She underwent aspiration thrombectomy and stenting of the RCA with good angiographic results and without any complication. At that point, the patient was found to have intermediate to severe disease involving the proximal and mid LAD. She was brought today to undergo an FFR of the LAD with possible intervention on the LAD. APPROACH: Right common femoral artery. COMPLICATION: None. LEVEL OF SEDATION: Moderate with sedation length of 31 minutes. PROCEDURE DESCRIPTION: After obtaining an informed consent, the patient was brought to the cardiac laboratory sample carrier. The right common femoral artery was cannulated using micropuncture technique and a micropuncture wire passed easily then I placed a 6-Welsh sheath in the right common femoral artery. At that point, I did start anticoagulation using Angiomax. After zeroing the Doppler wire and equalizing between the Doppler wire and the guiding catheter which was an XB3.5 LAD guiding catheter. We did actually iFR. I did not have to do an FFR. The iFR of the LAD passing the 2 lesions in the LAD came into be at 0.79. Because of that, I decided to pursue an intervention of the proximal LAD. I did balloon angioplasty using 2.5 x 12 mm balloon before I placed a 3.0 x 18 mm Xience JEFFREY where the stent was positioned under fluoroscopy guidance and deployed under 12 atmospheres for 20 seconds. After that I did iFR again of the LAD to assess the flow distal to the distal lesion and that came in to be ischemic at 0.83. Because of that, I decided to pursue intervention of the mid LAD, so I did direct stenting of that lesion using 2.75 x 18 mm Xience JEFFREY where the stent was positioned under fluoroscopy guidance and deployed under its nominal pressure. The following angiogram showed good angiographic results and the procedure was completed without any complication. POSTPROCEDURE MANAGEMENT: 1. Dual antiplatelet therapy. 2. Risk factor modifications. 3. Follow up with the patient. MMTIAGO / LALON: [id number] /
[2019-03-09] MEDS: HYDROcodone/APAP 5-325MG 1 EACH TAB PO PRN ×2 (11:25→17:56)
[2019-03-09] MEDS ORDERED: ADENOSINE 3 MG/ML 4 ML VIAL IVP ONE (13:37)
[2019-03-09] MEDS ORDERED: SODIUM CHLORIDE 0.9% 100 ML BAG ONE (13:37)
[2019-03-09] MEDS: ATORVASTATIN 80 MG TAB PO SCH (20:29)
[2019-03-10] MEDS: HYDROcodone/APAP 5-325MG 1 EACH TAB PO PRN ×4 (03:47→21:53)
[2019-03-10] MEDS: PANTOPRAZOLE 40 MG TABLET PO SCH (06:35)
[2019-03-10] MEDS: LEVOTHYROXINE 100 MCG TAB PO SCH (06:35)
[2019-03-10 07:45] LABS: Basophils % (A) 0 %; Eosinophils # (A) 0.2 k/uL (0-0.7); Eosinophils % (A) 3 %; HCT 34.8 % (34.0-46.0); HGB 11.4 gm/dL (11.4-16.0); Lymphocytes # (A) 1.4 k/uL (1.0-4.8); Lymphocytes % (A) 15 %; MCH 28.1 pg (25.0-35.0); MCHC 32.7 g/dL (31.0-37.0); MCV 85.9 fL (80.0-100.0); Mean Platelet Volume 7.2; Monocytes # (A) 0.5 k/uL (0-1.0); Monocytes % (A) 5 %; Neutrophils # (A) 7.2 k/uL (1.3-7.7); Neutrophils % (A) 76 %; Platelet Count 263 k/uL (150-450); RBC 4.05 m/uL (3.80-5.40); RDW 14.4 % (11.5-15.5); WBC 9.4 k/uL (3.8-10.6)
[2019-03-10 07:58] LABS: ALT 36 U/L (9-52); AST 37 U/L (14-36); Albumin 3.6 g/dL (3.5-5.0); Alkaline Phosphatase 85 U/L (38-126); Anion Gap 7 mmol/L; Blood Urea Nitrogen 16 mg/dL (7-17); Calcium 9.1 mg/dL (8.4-10.2); Carbon Dioxide 24 mmol/L (22-30); Chloride 107 mmol/L (98-107); Glucose 118 mg/dL (74-99); Potassium 4.1 mmol/L (3.5-5.1); Sodium 138 mmol/L (137-145); Total Bilirubin 0.8 mg/dL (0.2-1.3); Total Protein 6.5 g/dL (6.3-8.2)
[2019-03-10] MEDS: LISINOPRIL 2.5 MG TAB PO SCH (08:52)
[2019-03-10] MEDS: ASPIRIN 81 MG PO SCH (08:52)
[2019-03-10] MEDS: NICOTINE 14MG/24HR PATCH TRANSDERM SCH (08:52)
[2019-03-10] MEDS: TICAGRELOR 90 MG TAB PO SCH ×2 (08:52→21:53)
--- NOTE | 2019-03-10 09:43 | US ---
EXAMINATION TYPE: US lower ext pseudo artery RT DATE OF EXAM: 03/10/2019 COMPARISON: NONE CLINICAL HISTORY: 58-year-old female r/o psuedoanuerysm. Post cardiac cath right groin 03/07/19 and 0 03/09/19. Edema, bruising and tenderness right groin EXAM PERFORMED: Grayscale and color Doppler duplex imaging performed of the groin, post cardiac ifrah ter to assess for pseudoaneurysm. SIDE PERFORMED: right Technique: Color and Waveform Doppler performed to assess for the presence of pseudoaneurysm; FINDINGS: Is there ultrasound evidence of a pseudoaneurysm: not at this time Is there evidence of AV shunting: no Is there a fluid collection present: not at this time Lymph node right groin = 1.9 x 0.6 cm, prominent but nonenlarged by short axis dimension. IMPRESSION: Ultrasound and Doppler assessment of the right groin shows no evidence for pseudoaneurysm or hematoma at this time.
--- NOTE | 2019-03-10 11:12 | P.PN ---
Subjective Progress Note Date: 03/10/19 This is a 58-year-old female with history of nicotine dependence, untreated hyperlipidemia, hypothyroidism, who presented to the hospital via EMS with symptoms of severe midsternal chest pressure and heaviness with associated diaphoresis and nausea. Patient had just recently been in the hospital in January, on the she was seen in consultation at that time underwent a dobutamine stress echocardiographic study which was reported to be negative for any reversible ischemia. Her EKG on that admission was normal. Echocardiogram with Doppler study performed at that time showed a normal left ventricular systolic function. EKG performed via EMS showed significant ST elevation in the inferior leads with ST depression noted in the lateral leads. Patient was also noted to be in a complete heart block. Patient bypassed the emergency room, was taken directly to the cardiac catheterization lab. Currently have no labs available. It has been explained to the patient the need to undergo cardiac catheterization, the risks and the benefits were explained to the patient in detail and she is willing to proceed. 03/10/2019 Patient was taken to the cardiac catheterization lab emergently where she underwent angioplasty and stenting of the right coronary artery, subsequent to that, patient was taken to the cardiac catheterization lab yesterday where she underwent successful stenting of the proximal LAD and successful stenting of the mid LAD. Throughout the night last night, patient had developed some bleeding in the right groin with associated hematoma, 2 separate occasions pressure had to be held and a FemoStop was applied. I examined her groin this morning, it was soft there is no bruit there . Because of the happenings throughout the evening I did order an ultrasound of the groin which came back negative for any pseudoaneurysm. Overall the patient feels well she is complaining of lower back discomfort this morning denies any chest pain in her breathing has been stable. Blood pressure 154/60 with a heart rate in the 70s, 96% on room air. White blood cell count 9.4, hemoglobin 11.4, platelet count 263. Sodium 138, potassium 4.1, BUN 16 and creatinine 0.6. We will start the patient on a low- dose beta carter and increase her lisinopril to 5 mg daily today. Objective - Vital Signs Vital signs: Vital Signs Temp 99.2 F 03/10/19 03:38 Pulse 76 03/10/19 04:07 Resp 15 03/10/19 04:07 BP 154/66 03/10/19 04:07 Pulse Ox 96 03/10/19 04:07 Intake & Output 03/09/19 03/10/19 03/10/19 18:59 06:59 18:59 Intake Total 1132 600 120 Balance 1132 600 120 Weight 90 kg Intake: IV 706 Sodium Chloride 0.9% 1, 579 000 ml In Empty Bag 1 bag @ 1 ML/KG/HR 93.4 mls/hr IV .[id number] ONE Rx#: [id number] Intake, IV Titration 600 Amount Sodium Chloride 0.9% 1, 600 000 ml @ 75 mls/hr IV . [id number] [facility] Rx#:[id number] Oral 426 120 Other: Voiding Method Toilet Toilet Bedpan # Voids 2 1 - Exam PHYSICAL EXAMINATION: GENERAL: 58-year-old female in no acute distress at the time of my examination HEENT: Head is atraumatic, normocephalic. Pupils equal, round. Sclera anicteric. Conjunctiva are clear. Mucous membranes of the mouth are moist. Neck is supple. There is no elevated jugular venous pressure. No carotid bruit is heard. HEART EXAMINATION: Heart S1, S2 normal. No murmur or gallop heard. CHEST EXAMINATION: Lungs are clear to auscultation and precussion. No chest wall tenderness is noted on palpation or with deep breathing. ABDOMEN: Soft, nontender. Bowel sounds are heard. No organomegaly noted. EXTREMITIES: 2+ peripheral pulses with no evidence of peripheral edema and no calf tenderness noted. Right groin, small amount of ecchymosis, no hematoma, no bruit NEUROLOGIC patient is awake, alert and oriented 3 . . - Labs CBC & Chem 7: 03/10/19 06:40 03/10/19 06:40 Labs: Abnormal Lab Results - Last 24 Hours (Table) 03/10/19 Range/Units 06:40 Glucose 118 H (74-99) mg/dL AST 37 H (14-36) U/L Assessment and Plan Plan: Assessment and plan #1 acute inferior wall myocardial infarction status post angioplasty and stenting of the RCA with subsequent angioplasty and stenting of the LAD #2 nicotine dependence #3 family history of premature coronary artery disease #4 hyperlipidemia Plan We will add a small dose of beta carter to her medication regime as well as increasing the VANESSA inhibitor today for more optimal blood pressure control. Patient did have some issues with bleeding and hematoma through the night so we did order an ultrasound of the groin was morning which was negative for any pseudoaneurysm. We will continue to monitor the patient for 24 hours plan on possible discharge home in the morning tomorrow if stable. DNP note has been reviewed, I agree with a documented findings and plan of care. Patient was seen and examined.
--- NOTE | 2019-03-10 12:14 | P.PN ---
Subjective Progress Note Date: 03/10/19 03/10/2018: Patient seen and examined covering for Dr. Dr. Ndiaye. The patient is seen and examined sitting up in chair. She is currently on room air. The patient denies any chest pain or shortness of breath. She is complaining of back and buttocks pain. She states that she has back issues and the beds are really bothering her. She's been hemodynamically stable. She denies any needs or complaints at this time. The patient did have issues with her groin and bleeding overnight. Cardiology has ordered an ultrasound. BP meds are being adjusted by cardiology. Objective - Vital Signs Vital signs: Vital Signs Temp 97.6 F 03/10/19 08:00 Pulse 70 03/10/19 08:00 Resp 18 03/10/19 08:00 BP 154/68 03/10/19 08:00 Pulse Ox 94 L 03/10/19 08:00 Intake & Output 03/09/19 03/10/19 03/10/19 18:59 06:59 18:59 Intake Total 1132 600 120 Balance 1132 600 120 Weight 90 kg Intake: IV 706 Sodium Chloride 0.9% 1, 579 000 ml In Empty Bag 1 bag @ 1 ML/KG/HR 93.4 mls/hr IV .[id number] ONE Rx#: [id number] Intake, IV Titration 600 Amount Sodium Chloride 0.9% 1, 600 000 ml @ 75 mls/hr IV . [id number] [facility] Rx#:[id number] Oral 426 120 Other: Voiding Method Toilet Toilet Bedpan Bedpan # Voids 2 1 - Exam Head normocephalic Neck supple Lungs clear to auscultation bilaterally no wheezing or crackles Heart regular rate and rhythm S1-S2, no rub or gallop Abdomen is soft nontender nondistended positive bowel sounds no hepatosplenomegaly Extremities no edema Neuro alert and orientated to 3 - Labs CBC & Chem 7: 03/10/19 06:40 03/10/19 06:40 Labs: Abnormal Lab Results - Last 24 Hours (Table) 03/10/19 Range/Units 06:40 Glucose 118 H (74-99) mg/dL AST 37 H (14-36) U/L Assessment and Plan Assessment: 1. ST elevated ID. Patient went to the cardiac Security System Administrator and received a stent to the RCA. Patient currently on brilinta. Cardiology services are following. 2D echo completed showing an EF of 55-60%. Patient returned to the cardiac [facility] System [facility] for additional lesions in the LAD. Patient received 2 stents to the LAD. 2. History of nicotine dependence. Nicotine patch ordered 3. Hypothyroidism. Synthroid ordered 4. Chronic back pain 5. Osteoarthritis 6. Increased cough with congestion. Chest x-ray has been ordered. Patient also has mildly elevated white blood cell count at 12.5. Chest x-ray completed showing basilar atelectasis favored over pneumonia. Somewhat coarsened interstitial and be seen with interstitial pneumonitis correlate clinically binding stable US right groin shows no evidence of pseudoaneurysm or hematoma at this time Cardiology adjusting BP meds Possible plan for DC in the next 24-48 hours
[2019-03-10] MEDS: METOPROLOL SUCCINATE (ER) 25 MG TAB.ER.24H PO SCH (13:32)
[2019-03-10] MEDS: ATORVASTATIN 80 MG TAB PO SCH (21:53)
[2019-03-11 04:17] VITALS: TEMP 98.6
[2019-03-11] MEDS: HYDROcodone/APAP 5-325MG 1 EACH TAB PO PRN (06:21)
[2019-03-11] MEDS: LEVOTHYROXINE 100 MCG TAB PO SCH (06:40)
[2019-03-11] MEDS: PANTOPRAZOLE 40 MG TABLET PO SCH (06:40)
[2019-03-11 07:07] LABS: Basophils % (A) 1 %; Eosinophils # (A) 0.3 k/uL (0-0.7); Eosinophils % (A) 3 %; HCT 34.9 % (34.0-46.0); HGB 11.7 gm/dL (11.4-16.0); Lymphocytes # (A) 1.9 k/uL (1.0-4.8); Lymphocytes % (A) 21 %; MCH 28.6 pg (25.0-35.0); MCHC 33.5 g/dL (31.0-37.0); MCV 85.5 fL (80.0-100.0); Mean Platelet Volume 7.5; Monocytes # (A) 0.5 k/uL (0-1.0); Monocytes % (A) 5 %; Neutrophils # (A) 6.2 k/uL (1.3-7.7); Neutrophils % (A) 69 %; Platelet Count 274 k/uL (150-450); RBC 4.08 m/uL (3.80-5.40); RDW 14.3 % (11.5-15.5)
[2019-03-11 07:21] LABS: ALT 29 U/L (9-52); AST 25 U/L (14-36); Albumin 3.7 g/dL (3.5-5.0); Alkaline Phosphatase 86 U/L (38-126); Anion Gap 7 mmol/L; Blood Urea Nitrogen 14 mg/dL (7-17); Calcium 9.4 mg/dL (8.4-10.2); Carbon Dioxide 26 mmol/L (22-30); Chloride 106 mmol/L (98-107); Glucose 115 mg/dL (74-99); Potassium 4.1 mmol/L (3.5-5.1); Sodium 139 mmol/L (137-145); Total Bilirubin 0.8 mg/dL (0.2-1.3); Total Protein 6.6 g/dL (6.3-8.2)
[2019-03-11 07:57] VITALS: BP 124/64; PULSE 81; RESP 18
[2019-03-11] MEDS: NICOTINE 14MG/24HR PATCH TRANSDERM SCH (08:45)
[2019-03-11] MEDS: TICAGRELOR 90 MG TAB PO SCH (08:45)
[2019-03-11] MEDS: ASPIRIN 81 MG PO SCH (08:45)
[2019-03-11] MEDS: METOPROLOL SUCCINATE (ER) 25 MG TAB.ER.24H PO SCH (08:45)
[2019-03-11] MEDS ORDERED: LISINOPRIL 5 MG TAB PO SCH (09:00)
--- NOTE | 2019-03-11 10:41 | P.PN ---
Subjective Progress Note Date: 03/11/19 This is a 58-year-old female with history of nicotine dependence, untreated hyperlipidemia, hypothyroidism, who presented to the hospital via EMS with symptoms of severe midsternal chest pressure and heaviness with associated diaphoresis and nausea. Patient had just recently been in the hospital in January, on the she was seen in consultation at that time underwent a dobutamine stress echocardiographic study which was reported to be negative for any reversible ischemia. Her EKG on that admission was normal. Echocardiogram with Doppler study performed at that time showed a normal left ventricular systolic function. EKG performed via EMS showed significant ST elevation in the inferior leads with ST depression noted in the lateral leads. Patient was also noted to be in a complete heart block. Patient bypassed the emergency room, was taken directly to the cardiac catheterization lab. Currently have no labs available. It has been explained to the patient the need to undergo cardiac catheterization, the risks and the benefits were explained to the patient in detail and she is willing to proceed. 03/10/2019 Patient was taken to the cardiac catheterization lab emergently where she underwent angioplasty and stenting of the right coronary artery, subsequent to that, patient was taken to the cardiac catheterization lab yesterday where she underwent successful stenting of the proximal LAD and successful stenting of the mid LAD. Throughout the night last night, patient had developed some bleeding in the right groin with associated hematoma, 2 separate occasions pressure had to be held and a FemoStop was applied. I examined her groin this morning, it was soft there is no bruit there . Because of the happenings throughout the evening I did order an ultrasound of the groin which came back negative for any pseudoaneurysm. Overall the patient feels well she is complaining of lower back discomfort this morning denies any chest pain in her breathing has been stable. Blood pressure 154/60 with a heart rate in the 70s, 96% on room air. White blood cell count 9.4, hemoglobin 11.4, platelet count 263. Sodium 138, potassium 4.1, BUN 16 and creatinine 0.6. We will start the patient on a low- dose beta carter and increase her lisinopril to 5 mg daily today. 03/11/2019 Patient was seen and examined this morning, feels well, denies any chest pain or difficulty in breathing. She's been up ambulating in the hallway without any difficulty. Hemodynamically stable. CBC is normal, sodium 139, potassium 4.1, BUN 14 and creatinine 0.5. Objective - Vital Signs Vital signs: Vital Signs Temp 98.6 F 03/11/19 07:56 Pulse 81 03/11/19 07:56 Resp 18 03/11/19 07:56 BP 124/64 03/11/19 07:56 Pulse Ox 91 L 03/11/19 07:56 Intake & Output 03/10/19 03/11/19 03/11/19 18:59 06:59 18:59 Intake Total 180 Balance 180 Weight 89.5 kg Intake: Oral 180 Other: Voiding Method Bedpan Toilet Toilet # Voids 3 2 - Exam PHYSICAL EXAMINATION: GENERAL: 58-year-old female in no acute distress at the time of my examination HEENT: Head is atraumatic, normocephalic. Pupils equal, round. Sclera anicter ic. Conjunctiva are clear. Mucous membranes of the mouth are moist. Neck is supple. There is no elevated jugular venous pressure. No carotid bruit is heard. HEART EXAMINATION: Heart S1, S2 normal. No murmur or gallop heard. CHEST EXAMINATION: Lungs are clear to auscultation and precussion. No chest wall tenderness is noted on palpation or with deep breathing. ABDOMEN: Soft, nontender. Bowel sounds are heard. No organomegaly noted. EXTREMITIES: 2+ peripheral pulses with no evidence of peripheral edema and no calf tenderness noted. Right groin, ecchymotic, no hematoma, no bruit NEUROLOGIC patient is awake, alert and oriented 3 . . - Labs CBC & Chem 7: 03/11/19 06:45 03/11/19 06:45 Labs: Abnormal Lab Results - Last 24 Hours (Table) 03/11/19 Range/Units 06:45 Glucose 115 H (74-99) mg/dL Assessment and Plan Plan: Assessment and plan #1 acute inferior wall myocardial infarction status post angioplasty and stenting of the RCA with subsequent angioplasty and stenting of the LAD #2 nicotine dependence #3 family history of premature coronary artery disease #4 hyperlipidemia Plan From cardiology's perspective, patient may be able to be discharged home today. We'll make a follow-up appointment in the office with Dr. VC Magallon post discharge. Patient has been educated regarding her medication, diet, activity, and care of groin DNP note has been reviewed, I agree with a documented findings and plan of care. Patient was seen and examined.
--- NOTE | 2019-03-11 20:05 | DS ---
DISCHARGE SUMMARY Lily Cedeño is a 58-year-old female who presented to [facility] on March 07, 2019. At that time, she had come in with chest pain. She was taken to the cardiac lab head for ST elevated MN. The patient was found to have a block in the RCA and underwent primary angioplasty. The patient subsequently was admitted for further treatment. PAST MEDICAL HISTORY: Positive for hypothyroidism. No clear history of heart disease. SOCIAL HISTORY: Patient was a smoker, starting to have smoked in 1974 and smoked a pack a day. FAMILY HISTORY: Positive for heart disease in her father. Lung cancer in her mother. PHYSICAL EXAMINATION: Her vitals were stable. She was afebrile. Her chest was clear. Cardiovascular system is S1, S2. Abdomen is soft. There is no edema. INITIAL IMPRESSION: 1. ST myocardial infarction. 2. History of nicotine dependence. 3. Hypothyroidism. 4. Chronic back pain. The patient subsequently remained stable in the post angioplasty period. Her activity level was increased and on March 11, 2019 she did not have any chest pain. She has been hemodynamically stable overnight. On physical examination, her blood pressure is 124/64, respiratory rate of 18, pulse rate 81, temperature 98.6, O2 saturation on room air is 91%. HEENT was unremarkable. Chest was clear. Cardiovascular system revealed an S1, S2. No S3, S4. Abdomen is soft. There is no edema. The patient was discharged today. DISCHARGE DIAGNOSES: 1. Acute myocardial infarction. 2. Hypercholesteremia. 3. Hypothyroidism. CONDITION: Stable. DIET: Cardiac. ACTIVITY: As tolerated. She will follow up with Cardiology in [address] Hank Ndiaye in 1 weeks time. DISCHARGE MEDICATIONS: 1. Nicotine patch 21 mg per 24 hours daily. 2. Synthroid 100 mcg daily. 3. Brilinta 90 mg p.o. b.i.d. 4. Nitroglycerin 0.4 mg sublingual p.r.n. 5. Metoprolol in the form of Toprol-XL 25 mg p.o. daily. 6. Zestril 5 mg daily. 7. Atorvastatin 80 mg p.o. q.h.s. 8. Aspirin 81 mg p.o. daily. MMODL / IJN: [id number] /
== END 2019-03-11 12:42 | disposition home or self-care (01) | DRG 247 ==
LOC: 2SICU 14:07 → 3SCARD 03-09 13:08
PROVIDERS: ADMIT Internal Medicine; ATTEND Internal Medicine
PROC: 4A023N7 Measurement of Cardiac Sampling and Pressure, Left Heart, Percutaneous Approach (ICD-10-PCS; 2019-03-07)
PROC: B2111ZZ Fluoroscopy of Multiple Coronary Arteries using Low Osmolar Contrast (ICD-10-PCS; 2019-03-07)
PROC: 5A1223Z Performance of Cardiac Pacing, Continuous (ICD-10-PCS; 2019-03-07)
PROC: 027034Z Dilation of Coronary Artery, One Artery with Drug-eluting Intraluminal Device, Percutaneous Approach (ICD-10-PCS; principal; 2019-03-07 14:05)
PROC: 027035Z Dilation of Coronary Artery, One Artery with Two Drug-eluting Intraluminal Devices, Percutaneous Approach (ICD-10-PCS; 2019-03-09 08:46)
DX: I21.19 ST elevation (STEMI) myocardial infarction involving other coronary artery of inferior wall (principal); I44.2 Atrioventricular block, complete; J98.11 Atelectasis; J84.89 Other specified interstitial pulmonary diseases; I25.10 Atherosclerotic heart disease of native coronary artery without angina pectoris; F17.200 Nicotine dependence, unspecified, uncomplicated; M17.0 Bilateral primary osteoarthritis of knee; E03.9 Hypothyroidism, unspecified; G89.29 Other chronic pain; M54.9 Dorsalgia, unspecified; E78.5 Hyperlipidemia, unspecified; E78.00 Pure hypercholesterolemia, unspecified; Z71.6 Tobacco abuse counseling; Z79.890 Hormone replacement therapy; Z98.51 Tubal ligation status; Z80.1 Family history of malignant neoplasm of trachea, bronchus and lung; Z82.49 Family history of ischemic heart disease and other diseases of the circulatory system
CPT/HCPCS: 71045; 80053; 82550; 82553; 84484; 85025; 93306; 93458; 93571; 93975; C1874

== ENCOUNTER → 2019-03-21 | Outpatient (CLI) | payer BC ==
--- NOTE | 2019-03-22 10:45 | XR ---
EXAMINATION TYPE: XR chest 2V DATE OF EXAM: 03/21/2019 COMPARISON: Prior chest x-ray 03/09/[address] 08/07/2017 HISTORY: Cough, coronary artery disease TECHNIQUE: Frontal and lateral views of the chest are obtained. FINDINGS: There is no focal air space opacity, pleural effusion, or pneumothorax seen. The cardiac silhouette size is within normal limits. Prominent lung volume could be indicative of underlying PRECISION HONER D. Some strand-like densities at the left lung base likely represent subsegmental atelectasis. The os seous structures are intact. IMPRESSION: Suspect some residual basilar atelectasis or scarring rather than pneumonia. Emphysema.
== END ==
LOC: RADXRMAIN 16:08
PROVIDERS: ATTEND Internal Medicine
DX: J43.9 Emphysema, unspecified (principal)
CPT/HCPCS: 71046

== ENCOUNTER 2019-05-02 00:27 | Observation (INO) | payer BC ==
[2019-05-02] MEDS ORDERED: SODIUM CHLORIDE 0.9% 500 ML 500 ML IV STA (00:40)
[2019-05-02] MEDS ORDERED: ONDANSETRON 4 MG/2 ML VIAL IVP STA (00:40)
[2019-05-02 01:12] LABS: Basophils # (A) 0.1 k/uL (0-0.2); Basophils % (A) 1 %; Eosinophils # (A) 0.5 k/uL (0-0.7); Eosinophils % (A) 4 %; HCT 39.9 % (34.0-46.0); HGB 12.9 gm/dL (11.4-16.0); Lymphocytes # (A) 1.7 k/uL (1.0-4.8); Lymphocytes % (A) 13 %; MCH 27.5 pg (25.0-35.0); MCHC 32.4 g/dL (31.0-37.0); MCV 84.9 fL (80.0-100.0); Mean Platelet Volume 6.8; Monocytes # (A) 0.4 k/uL (0-1.0); Monocytes % (A) 3 %; Neutrophils # (A) 10.5 k/uL (1.3-7.7); Neutrophils % (A) 80 %; Platelet Count 351 k/uL (150-450); RDW 14.2 % (11.5-15.5); WBC 13.1 k/uL (3.8-10.6)
[2019-05-02 01:20] LABS: Albumin 4.7 g/dL (3.5-5.0); Calcium 10.1 mg/dL (8.4-10.2); Potassium 4.4 mmol/L (3.5-5.1); Total Bilirubin 0.6 mg/dL (0.2-1.3); Total Protein 8.2 g/dL (6.3-8.2)
[2019-05-02 01:31] LABS: Partial Thromboplastin Time 27.4 sec (22.0-30.0); Prothrombin Time 10.3 sec (9.0-12.0)
--- NOTE | 2019-05-02 01:47 | XR ---
EXAM: XR Chest, 2 Views CLINICAL HISTORY: ITS.REASON XR Reason: Pain TECHNIQUE: Frontal and lateral views of the chest. COMPARISON: 03/21/19 IMPRESSION: Unchanged heart size. Increased opacity in the right lower lobe, possibly infection or atelectasis. No pleural effusion.
--- NOTE | 2019-05-02 02:44 | ED ---
General Adult HPI - General Source: patient Mode of arrival: wheelchair Limitations: no limitations <Darlyn Lundy - Last Filed: 05/02/19 03:42> <Amol Santillan - Last Filed: 05/09/19 12:01> - General Chief complaint: Dizziness Stated complaint: Dizziness, Neck Pain Time Seen by Provider: 05/02/19 00:39 - History of Present Illness Initial comments: 58-year-old female patient presents to the emergency department today for evaluation of dizziness, neck pain, shortness of breath, and near-syncope. Patient states that she had a myocardial infarction approximately 6 weeks ago with 3 stents placed. Patient states today was her first night back at work. 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 Patient states that she did become diaphoretic with this and developed posterior neck pain. Patient states she was nauseated but did not vomit. Patient states she is having minor chest pressure. States she has had dry cough for the last few weeks. Denies fever or chills. Patient denies any recent rash, abdominal pain, diarrhea, constipation, back pain, numbness, tingling, dizziness, weakness, hematuria, dysuria, urinary urgency, urinary frequency, headache, visual changes, or any other complaints. (Darlyn Lundy) - Related Data Home Medications Medication Instructions Recorded Confirmed Levothyroxine Sodium [Synthroid] 100 mcg PO DAILY 02/07/19 05/02/19 Nicotine 21Mg/24Hr Patch [Habitrol] 1 patch TRANSDERM DAILY 03/07/19 05/02/19 Clopidogrel Bisulfate [Plavix] 75 mg PO DAILY 05/02/19 05/02/19 HYDROcodone/APAP 5-325MG [[place] 1 tab PO Q6H PRN 05/02/19 05/02/19 5-325] Previous Rx's Medication Instructions Recorded Aspirin 81 mg PO DAILY #39 chew 03/11/19 Atorvastatin [Lipitor] 80 mg PO HS #30 tab 03/11/19 Lisinopril [Zestril] 5 mg PO DAILY #30 tab 03/11/19 Metoprolol Succinate (ER) [Toprol 25 mg PO DAILY #30 tab.er.24h 03/11/19 XL] Nitroglycerin Sl Tabs [Nitrostat] 0.4 mg SUBLINGUAL Q5M PRN #25 tab 03/11/19 Cefdinir [Omnicef] 300 mg PO BID 7 Days #14 cap 05/04/19 Allergies Allergy/AdvReac Type Severity Reaction Status Date / Time ticagrelor [From Brilinta] AdvReac Nausea & Verified 05/02/19 07:23 Vomiting Review of Systems ROS Other: All systems not noted in ROS Statement are negative. <Darlyn Lundy - Last Filed: 05/02/19 03:42> ROS Other: All systems not noted in ROS Statement are negative. <Amol Santillan - Last Filed: 05/09/19 12:01> ROS Statement: Those systems with pertinent positive or pertinent negative responses have been documented in the HPI. Past Medical History Past Medical History: Myocardial Infarction ([place]), Osteoarthritis (OA), Thyroid Disorder Additional Past Medical History / Comment(s): Chronic cervical pain/herniated disks in neck, arthritis in knees/feet, recent sinus infection treated with antibiotic. Last Myocardial Infarction Date:: 03/07/19 History of Any Multi-Drug Resistant Organisms: None Reported Past Surgical History: Heart Catheterization With Stent, Orthopedic Surgery, Tubal Ligation Additional Past Surgical History / Comment(s): R knee arthroscopy Past Anesthesia/Blood Transfusion Reactions: No Reported Reaction Past Psychological History: No Psychological Hx Reported Smoking Status: Current some day smoker Past Alcohol Use History: None Reported Past Drug Use History: None Reported - Past Family History Father Additional Family Medical History / Comment(s): Father had heart problems. He had surgery and "it didn't go too well" and he . Mother Family Medical History: Cancer Additional Family Medical History / Comment(s): Mother of lung cancer at the age of 70 yrs. <Darlyn Lundy - Last Filed: 05/02/19 03:42> General Exam Limitations: no limitations General appearance: alert, in no apparent distress, other (This is well developed, well-nourished adult female patient in no acute distress. Vital signs upon presentation are temperature 97.5F, pulse 80, respirations 17, blood pressure 126/69, pulse ox 97% on room air.) Eye exam: Present: normal appearance, PERRL, EOMI. Absent: scleral icterus, conjunctival injection, periorbital swelling ENT exam: Present: normal exam, normal oropharynx, mucous membranes moist Respiratory exam: Present: normal lung sounds bilaterally. Absent: respiratory distress, wheezes, rales, rhonchi, stridor Cardiovascular Exam: Present: regular rate, normal rhythm, normal heart sounds. Absent: systolic murmur, diastolic murmur, rubs, gallop, clicks GI/Abdominal exam: Present: soft, normal bowel sounds. Absent: distended, tenderness, guarding, rebound, rigid Neurological exam: Present: alert, oriented X3, CN II-XII intact Psychiatric exam: Present: normal affect, normal mood Skin exam: Present: warm, dry, intact, normal color. Absent: rash <Darlyn Lundy - Last Filed: 05/02/19 03:42> Course Vital Signs 05/02/19 05/02/19 05/02/19 00:32 04:26 04:39 Temperature 97.5 F L 97.8 F Pulse Rate 80 73 Pulse Rate [ 71 Pulse Oximetery ] Respiratory 17 20 18 Rate Blood Pressure 126/69 138/79 Blood Pressure 143/95 [Right Arm] O2 Sat by Pulse 97 96 95 Oximetry 05/02/19 05/02/19 07:45 12:00 Temperature 97.3 F L 98.0 F Pulse Rate Pulse Rate [ 76 80 Pulse Oximetery ] Respiratory 16 16 Rate Blood Pressure Blood Pressure 113/63 117/58 [Right Arm] O2 Sat by Pulse 94 L 94 L Oximetry EKG Findings - EKG Comments: EKG Findings:: EKG obtained at 00 49 shows normal sinus rhythm with ventricular rate of 78, MT interval 192, QR alevism 86, QT 410, QTC 467. No evidence of ST elevation or depression. <Darlyn Lundy - Last Filed: 05/02/19 03:42> Medical Decision Making - Lab Data Result diagrams: 05/02/19 00:59 05/02/19 00:59 - Radiology Data Radiology results: report reviewed, image reviewed <Darlyn Lundy - Last Filed: 05/02/19 03:42> - Lab Data Result diagrams: 05/04/19 06:29 05/04/19 06:29 <Amol Santillan - Last Filed: 05/09/19 12:01> - Medical Decision Making 48-year-old female patient presented to the emergency department today for evaluation of near syncopal episode, shortness of breath, chest pressure, and dizziness. Physical examination reveals equal lung sounds with some crackles at the bases. Labs reviewed and did reveal white blood cell count of 13.1, BUN 24, creatinine 1.08. Urinalysis shows cloudy appearance with 1+ protein, moderate leuk esterase, 7 white blood cells, 12 squamous epithelial cells, occasional bacteria, 438 hyaline casts, urine many urine mucus. Patient denies any urinary symptoms or flank pain, this will be sent for culture. Findings on x-ray show possible right lower lobe pneumonia. Patient does report dry cough for the last couple of weeks. Given this and white blood cell count we will treat for pneumonia. Given recent STEMI with stenting and symptoms of dyspnea, near syncope, and dizziness we will admit for cardiology evaluation. (Darlyn Lundy) I saw this patient in conjunction with the physician library assistant. I performed independent history and physical exam. Agree with case management. (Amol Santillan) - Lab Data Lab Results 05/02/19 05/02/19 05/02/19 Range/Units 00:59 00:59 00:59 WBC 13.1 H (3.8-10.6) k/uL RBC 4.70 (3.80-5.40) m/uL Hgb 12.9 (11.4-16.0) gm/dL Hct 39.9 (34.0-46.0) % MCV 84.9 (80.0-100.0) fL MCH 27.5 (25.0-35.0) pg MCHC 32.4 (31.0-37.0) g/dL RDW 14.2 (11.5-15.5) % Plt Count 351 (150-450) k/uL Neutrophils % 80 % Lymphocytes % 13 % Monocytes % 3 % Eosinophils % 4 % Basophils % 1 % Neutrophils # 10.5 H (1.3-7.7) k/uL Lymphocytes # 1.7 (1.0-4.8) k/uL Monocytes # 0.4 (0-1.0) k/uL Eosinophils # 0.5 (0-0.7) k/uL Basophils # 0.1 (0-0.2) k/uL PT 10.3 (9.0-12.0) sec INR 1.0 (<1.2) APTT 27.4 (22.0-30.0) sec Sodium 140 (137-145) mmol/L Potassium 4.4 (3.5-5.1) mmol/L Chloride 104 (98-107) mmol/L Carbon Dioxide 26 (22-30) mmol/L Anion Gap 10 mmol/L BUN 24 H (7-17) mg/dL Creatinine 1.08 H (0.52-1.04) mg/dL Est GFR (CKD-EPI)AfAm 65 (>60 ml/min/1.73 sqM) Est GFR (CKD-EPI)NonAf 56 (>60 ml/min/1.73 sqM) Glucose 173 H (74-99) mg/dL Calcium 10.1 (8.4-10.2) mg/dL Total Bilirubin 0.6 (0.2-1.3) mg/dL AST 23 (14-36) U/L ALT 14 (9-52) U/L Alkaline Phosphatase 138 H (38-126) U/L Troponin I (0.000-0.034) ng/mL Total Protein 8.2 (6.3-8.2) g/dL Albumin 4.7 (3.5-5.0) g/dL Amylase 51 (30-110) U/L Lipase 96 (23-300) U/L Urine Color Urine Appearance (Clear) Urine pH (5.0-8.0) Ur Specific [place] (1.001-1.035) Urine Protein (Negative) Urine Glucose (UA) (Negative) Urine Ketones (Negative) Urine Blood (Negative) Urine Nitrite (Negative) Urine Bilirubin (Negative) Urine Urobilinogen (<2.0) mg/dL Ur Leukocyte Esterase (Negative) Urine RBC (0-5) /hpf Urine WBC (0-5) /hpf Ur Squamous Epith Cells (0-4) /hpf Urine Bacteria (None) /hpf Hyaline Casts (0-2) /lpf Urine Mucus (None) /hpf 05/02/19 05/02/19 Range/Units 00:59 02:30 WBC (3.8-10.6) k/uL RBC (3.80-5.40) m/uL Hgb (11.4-16.0) gm/dL Hct (34.0-46.0) % MCV (80.0-100.0) fL MCH (25.0-35.0) pg MCHC (31.0-37.0) g/dL RDW (11.5-15.5) % Plt Count (150-450) k/uL Neutrophils % % Lymphocytes % % Monocytes % % Eosinophils % % Basophils % % Neutrophils # (1.3-7.7) k/uL Lymphocytes # (1.0-4.8) k/uL Monocytes # (0-1.0) k/uL Eosinophils # (0-0.7) k/uL Basophils # (0-0.2) k/uL PT (9.0-12.0) sec INR (<1.2) APTT (22.0-30.0) sec Sodium (137-145) mmol/L Potassium (3.5-5.1) mmol/L Chloride (98-107) mmol/L Carbon Dioxide (22-30) mmol/L Anion Gap mmol/L BUN (7-17) mg/dL Creatinine (0.52-1.04) mg/dL Est GFR (CKD-EPI)AfAm (>60 ml/min/1.73 sqM) Est GFR (CKD-EPI)NonAf (>60 ml/min/1.73 sqM) Glucose (74-99) mg/dL Calcium (8.4-10.2) mg/dL Total Bilirubin (0.2-1.3) mg/dL AST (14-36) U/L ALT (9-52) U/L Alkaline Phosphatase (38-126) U/L Troponin I <0.012 (0.000-0.034) ng/mL Total Protein (6.3-8.2) g/dL Albumin (3.5-5.0) g/dL Amylase (30-110) U/L Lipase (23-300) U/L Urine Color Yellow Urine Appearance Cloudy H (Clear) Urine pH 5.5 (5.0-8.0) Ur Specific [place] 1.028 (1.001-1.035) Urine Protein 1+ H (Negative) Urine Glucose (UA) Negative (Negative) Urine Ketones Negative (Negative) Urine Blood Negative (Negative) Urine Nitrite Negative (Negative) Urine Bilirubin Negative (Negative) Urine Urobilinogen 2.0 (<2.0) mg/dL Ur Leukocyte Esterase Moderate H (Negative) Urine RBC 2 (0-5) /hpf Urine WBC 7 H (0-5) /hpf Ur Squamous Epith Cells 12 H (0-4) /hpf Urine Bacteria Occasional H (None) /hpf Hyaline Casts 438 H (0-2) /lpf Urine Mucus Many H (None) /hpf - Radiology Data Two-view x-ray of the chest is obtained. Report was reviewed in its entirety. Impression by Dr. Siegel shows unchanged her size. Increased opacity in right lower lobe, possibly infection or atelectasis. No pleural effusion. (Darlyn Lundy) Disposition Decision to Admit Reason: Admit from EC Decision Date: 05/02/19 Decision Time: 03:42 <Darlyn Lundy - Last Filed: 05/02/19 03:42> <Amol Santillan - Last Filed: 05/09/19 12:01> Clinical Impression: Right lower lobe pneumonia, Near syncope, Chest pressure Disposition: ADMITTED IP TO THIS HOSP Condition: Stable
[2019-05-02 03:13] LABS: Appearance,Urine Cloudy (Clear); Bacteria,Urine Occasional /hpf; Bilirubin,Urine Negative (Negative); Blood,Urine Negative (Negative); Color,Urine Yellow; Glucose,Urine (UA) Negative (Negative); Hyaline Casts,Urine 438 /lpf (0-2); Ketones,Urine Negative (Negative); Leukocyte Esterase,Urine Moderate (Negative); Mucus,Urine Many /hpf; Nitrite,Urine Negative (Negative); PH, Urine 5.5 (5.0-8.0); Protein,Urine 1+ (Negative); RBC,Urine 2 /hpf (0-5); Specific Gravity,Urine 1.028 (1.001-1.035); Squamous Epithelial Cell,Urine 12 /hpf (0-4); WBC,Urine 7 /hpf (0-5)
[2019-05-02] MEDS ORDERED: SODIUM CHLORIDE 0.9% 500 ML 500 ML IV ONE (03:18)
[2019-05-02] MEDS ORDERED: NALOXONE 0.4 MG/ML 1 ML VIAL IV PRN (03:42)
[2019-05-02] MEDS ORDERED: NITROGLYCERIN SL TABS 0.4 MG TAB SUBLINGUAL PRN (03:45)
[2019-05-02] MEDS ORDERED: AZITHROMYCIN 500 MG in SODIUM CHLORIDE 0.9% 250 ML IVPB ONE (04:00)
[2019-05-02 05:05] VITALS: BMI 38.0
[2019-05-02] MEDS: HYDROcodone/APAP 5-325MG 1 EACH TAB PO PRN ×2 (08:05→20:14)
[2019-05-02 08:59] LABS: ALT 18 U/L (9-52); AST 18 U/L (14-36); African American GFR (CKD) >90 (>60 ml/min/1.73 sqM); Albumin 3.5 g/dL (3.5-5.0); Alkaline Phosphatase 105 U/L (38-126); Anion Gap 6 mmol/L; Blood Urea Nitrogen 19 mg/dL (7-17); Carbon Dioxide 24 mmol/L (22-30); Chloride 112 mmol/L (98-107); Glucose 124 mg/dL (74-99); Potassium 4.1 mmol/L (3.5-5.1); Sodium 142 mmol/L (137-145); Total Bilirubin 0.4 mg/dL (0.2-1.3); Total Protein 6.4 g/dL (6.3-8.2)
[2019-05-02 09:00] LABS: Basophils % (A) 0 %; Eosinophils # (A) 0.2 k/uL (0-0.7); Eosinophils % (A) 2 %; HCT 34.6 % (34.0-46.0); HGB 11.2 gm/dL (11.4-16.0); Lymphocytes # (A) 1.9 k/uL (1.0-4.8); Lymphocytes % (A) 22 %; MCHC 32.4 g/dL (31.0-37.0); MCV 86.4 fL (80.0-100.0); Mean Platelet Volume 6.9; Monocytes # (A) 0.4 k/uL (0-1.0); Monocytes % (A) 5 %; Neutrophils # (A) 5.9 k/uL (1.3-7.7); Neutrophils % (A) 69 %; Platelet Count 272 k/uL (150-450); RBC 4.01 m/uL (3.80-5.40); RDW 14.3 % (11.5-15.5); WBC 8.5 k/uL (3.8-10.6)
[2019-05-02] MEDS ORDERED: AMINOPHYLLINE 500 MG/20 ML VIAL IV PRN (12:29)
[2019-05-02] MEDS ORDERED: CAFFEINE CITRATE 60 MG/3 ML VIAL IV PRN (12:29)
[2019-05-02] MEDS ORDERED: DIPYRIDAMOLE IV ONE (12:30)
[2019-05-02] MEDS ORDERED: SODIUM CHLORIDE 0.9% IV ONE (12:30)
--- NOTE | 2019-05-02 12:36 | P.CRDCN ---
History of Present Illness Consult date: 05/02/19 History of present illness: This is a 58-year-old female with history of ischemic heart disease with inferior wall CT for which she had a stent placement done about 6 weeks ago. At that time patient had high degree AV block requiring temporary pacemaker implantation. Subsequently patient also had stent placement of the left anterior descending coronary artery, both in the proximal and midportion. Patient went to work yesterday for the first time after the heart attack. 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 Patient went and sat for a long time. Finally patient called her came to the emergency room. She did not have any chest pain. She said some of the symptoms are similar to what she felt when she had a heart attack though she did not have chest pain this time. Her EKGs did not reveal any acute changes. Her cardiac enzymes are negative. Chest x- ray showed questionable pneumonia versus atelectasis of the right lower lobe. Her white count was mildly elevated on admission but came back to normal today. No complaints of any fever or chills. Patient does have some chronic cough. She is to be a smoker but hasn't been smoking since heart attack. Review of Systems REVIEW OF SYSTEMS: CONSTITUTIONAL:. Patient is doing well. No complaints of fever or chills EYES: Denies diplopia, blurring of vision EARS, NOSE, MOUTH, THROAT: Denies headaches, denies sore throat. CARDIOVASCULAR: Denies. As per the chart RESPIRATORY: Cough GASTROINTESTINAL: Denies change in appetite, denies abdominal pain, denies diarrhea GENITOURINARY: Denies hematuria, denies infections. MUSKULOSKELETAL: Denies pain, denies swelling. Denies any cramps or claudication INTEGUMENTARY: Denies rash, denies eczema. NEUROLOGICAL: Denies focal weakness, or visual disturbance. Denies any dizziness or syncope PSYCHIATRIC: Denies anxiety, denies depression. HEMATOLOGIC/LYMPHATIC: Denies any bleeding, denies enlarged lymph nodes. Past Medical History Past Medical History: Hyperlipidemia, Hypertension, Myocardial Infarction ([place]), Osteoarthritis (OA), Thyroid Disorder Additional Past Medical History / Comment(s): Chronic cervical pain/herniated disks in neck, arthritis in knees/feet, recent sinus infection treated with antibiotic. Last Myocardial Infarction Date:: 03/07/19 History of Any Multi-Drug Resistant Organisms: None Reported Past Surgical History: Heart Catheterization With Stent, Orthopedic Surgery, Tubal Ligation Additional Past Surgical History / Comment(s): R knee arthroscopy Past Anesthesia/Blood Transfusion Reactions: No Reported Reaction Date of Last Stent Placement:: 03/07/19 Past Psychological History: No Psychological Hx Reported Additional Psychological History / Comment(s): Pt resides with her spouse. She works 6pm-6am for [employer]. She does alot of lifting, pushing and pulling. She does not drive, her spouse drives. Smoking Status: Former smoker Past Alcohol Use History: None Reported Additional Past Alcohol Use History / Comment(s): patient states she has not smoked since her heart attack over a month ago. Past Drug Use History: None Reported - Past Family History Father Additional Family Medical History / Comment(s): Father had heart problems. He had surgery and "it didn't go too well" and he . Mother Family Medical History: Cancer Additional Family Medical History / Comment(s): Mother of lung cancer at the age of 70 yrs. Medications and Allergies Home Medications Medication Instructions Recorded Confirmed Type Levothyroxine Sodium [Synthroid] 100 mcg PO DAILY 02/07/19 05/02/19 History Nicotine 21Mg/24Hr Patch [Habitrol] 1 patch TRANSDERM DAILY 03/07/19 05/02/19 History Aspirin 81 mg PO DAILY #39 chew 03/11/19 05/02/19 Rx Atorvastatin [Lipitor] 80 mg PO HS #30 tab 03/11/19 05/02/19 Rx Lisinopril [Zestril] 5 mg PO DAILY #30 tab 03/11/19 05/02/19 Rx Metoprolol Succinate (ER) [Toprol 25 mg PO DAILY #30 tab.er.24h 03/11/19 Rx XL] Nitroglycerin Sl Tabs [Nitrostat] 0.4 mg SUBLINGUAL Q5M PRN #25 tab 03/11/19 05/02/19 Rx Clopidogrel Bisulfate [Plavix] 75 mg PO DAILY 05/02/19 05/02/19 History HYDROcodone/APAP 5-325MG [[place] 1 tab PO Q6H PRN 05/02/19 05/02/19 History 5-325] Allergies Allergy/AdvReac Type Severity Reaction Status Date / Time ticagrelor [From Brilinta] AdvReac Nausea & Verified 05/02/19 07:23 Vomiting Physical Exam Vitals: Vital Signs Temp Pulse Pulse Resp BP BP Pulse Ox 05/02/19 07:45 97.3 F L 76 16 113/63 94 L 05/02/19 04:39 97.8 F 71 18 143/95 95 05/02/19 04:26 73 20 138/79 96 05/02/19 00:32 97.5 F L 80 17 126/69 97 Intake and Output 05/01/19 05/02/19 05/02/19 22:59 06:59 14:59 Other: # Voids 1 Weight 88.451 kg GENERAL EXAM: Patient is alert and oriented and doesn't appear to be in any acute distress HEENT: Normocephalic. Normal reaction of pupils, equal size, normal range of extraocular motion. No erythema or exudates in the throat. NECK: No masses, no nuchal rigidity. CHEST: No chest wall deformity. LUNGS: Scattered rhonchi HEART: S1 and S2 normal with no audible mumurs or gallops. Regular rhythm, femorals equal on both sides.. ABDOMEN: No hepatosplenomegaly, normal bowel sounds, no guarding or rigidity. SKIN: No rashes CENTRAL NERVOUS SYSTEM: No focal deficits. EXTREMITIES: No cyanosis, clubbing or edema. Results 05/02/19 07:17 05/02/19 07:17 Cardiac Enzymes 05/02/19 05/02/19 05/02/19 Range/Units 00:59 00:59 07:17 AST 23 (14-36) U/L Troponin I <0.012 <0.012 (0.000-0.034) ng/mL 05/02/19 Range/Units 07:17 AST 18 (14-36) U/L Troponin I (0.000-0.034) ng/mL Coagulation 05/02/19 Range/Units 00:59 PT 10.3 (9.0-12.0) sec APTT 27.4 (22.0-30.0) sec CBC 05/02/19 05/02/19 Range/Units 00:59 07:17 WBC 13.1 H 8.5 (3.8-10.6) k/uL RBC 4.70 4.01 (3.80-5.40) m/uL Hgb 12.9 11.2 L (11.4-16.0) gm/dL Hct 39.9 34.6 (34.0-46.0) % Plt Count 351 272 (150-450) k/uL Comprehensive Metabolic Panel 05/02/19 05/02/19 Range/Units 00:59 07:17 Sodium 140 142 (137-145) mmol/L Potassium 4.4 4.1 (3.5-5.1) mmol/L Chloride 104 112 H (98-107) mmol/L Carbon Dioxide 26 24 (22-30) mmol/L BUN 24 H 19 H (7-17) mg/dL Creatinine 1.08 H 0.71 (0.52-1.04) mg/dL Glucose 173 H 124 H (74-99) mg/dL Calcium 10.1 9.0 (8.4-10.2) mg/dL AST 23 18 (14-36) U/L ALT 14 18 (9-52) U/L Alkaline Phosphatase 138 H 105 (38-126) U/L Total Protein 8.2 6.4 (6.3-8.2) g/dL Albumin 4.7 3.5 (3.5-5.0) g/dL Current Medications Generic Name Dose Route Start Last Admin Trade Name Freq PRN Reason Stop Dose Admin Hydrocodone Bitart/Acetaminophen 1 each 05/02/19 07:28 05/02/19 08:05 [place] 5-325 PO 1 each Q6H PRN Administration Pain Aminophylline 100 mg 05/02/19 12:29 Aminophylline IV ONCE PRN Patient Response Aspirin 81 mg 05/02/19 09:00 Aspirin PO DAILY [facility] Atorvastatin Calcium 80 mg 05/02/19 21:00 Lipitor PO HS [facility] Caffeine Citrate 60 mg 05/02/19 12:29 Cafcit Inj IV ONCE PRN Patient Response Clopidogrel Bisulfate 75 mg 05/02/19 09:00 Plavix PO DAILY [facility] Azithromycin 500 mg/ Sodium 250 mls @ 250 mls/hr 05/03/19 06:00 Chloride IVPB DAILY@0600 [facility] Ceftriaxone Sodium 1 gm/ 50 mls @ 100 mls/hr 05/03/19 04:00 Sodium Chloride IVPB Q24H [facility] Dipyridamole 50.4 mg/ Sodium 60.08 mls @ 901.2 mls/hr 05/02/19 12:29 Chloride IV 05/02/19 12:30 ONCE ONE Levothyroxine Sodium 100 mcg 05/02/19 09:00 Synthroid PO DAILY@0630 [facility] Metoprolol Succinate 25 mg 05/02/19 09:00 Toprol Xl PO DAILY [facility] Naloxone HCl 0.2 mg 05/02/19 03:42 Narcan IV Q2M PRN Opioid Reversal Nitroglycerin 0.4 mg 05/02/19 03:45 Nitrostat SUBLINGUAL Q5M PRN Chest Pain Intake and Output 05/01/19 05/02/19 05/02/19 22:59 06:59 14:59 Other: # Voids 1 Weight 88.451 kg 05/02/19 07:17 05/02/19 07:17 EKG Interpretations (text) Sinus rhythm with a evidence of old inferior wall CT without any acute ST-T changes Assessment and Plan (1) Shortness of breath Current Visit: Yes Status: Acute Code(s): R06.02 - SHORTNESS OF BREATH SNOMED Code(s): 482736285 (2) Dizziness Current Visit: Yes Status: Acute Code(s): R42 - DIZZINESS AND GIDDINESS SNOMED Code(s): 058774571 (3) History of inferior wall myocardial infarction Current Visit: Yes Status: Acute Code(s): I25.2 - OLD MYOCARDIAL INFARCTION SNOMED Code(s): 720329573 (4) CAD (coronary artery disease) Current Visit: Yes Status: Acute Code(s): I25.10 - ATHSCL HEART DISEASE OF [place] CORONARY ARTERY W/O ANG PCTRS SNOMED Code(s): 30914451 Plan: The etiology of her exertional symptoms is not clear. Rule out any progression of the underlying ischemic heart disease. A she does have some cough and questionable infiltrate in the lungs. She is being treated with antibiotics. Cardiac enzymes have been negative. I'm going to schedule for a Lexiscan stress test and also echocardiogram. If the test is negative, then patient could be discharged home on event monitor. If patient stress test shows any ischemia, patient may need cardiac catheterization
[2019-05-02] MEDS: LEVOTHYROXINE 100 MCG TAB PO SCH (12:38)
[2019-05-02] MEDS: CLOPIDOGREL 75 MG TAB PO SCH (12:45)
[2019-05-02] MEDS: ASPIRIN 81 MG PO SCH (12:45)
[2019-05-02] MEDS: METOPROLOL SUCCINATE (ER) 25 MG TAB.ER.24H PO SCH (12:46)
[2019-05-02] MEDS ORDERED: guaiFENesin 600 MG TABLET.ER PO PRN (13:21)
[2019-05-02] MEDS ORDERED: IPRATROPIUM-ALBUTEROL 3 ML NEB INHALATION PRN (13:24)
--- NOTE | 2019-05-02 13:27 | P.HPIM ---
History of Present Illness H&P Date: 05/02/19 This is a 58-year-old female patient who presents to ER with complaints of dizziness shortness of breath and chest pain. Patient recently underwent a cardiac cath in which she received stents to RCA approximately 6 weeks ago patient reports that this was her first day back at work she started to ex periencing dizziness and fatigue along with chest pain and shortness of breath. Additional medical history includes hyperlipidemia, hypertension, myocardial infarction, osteoarthritis and hypothyroidism and ex-smoker. Chest x-ray completed showing unchanged heart size. Increased opacity seen in the right lower lobe possibly infection or atelectasis no pleural effusion. EKG completed showing normal sinus rhythm. Inferior infarct, age undetermined. Troponins negative 2. Patient reports that she has been taking her medications as prescribed including her Plavix. Patient with cell initially 13.1. Patient started on azithromycin and Rocephin. Cardiology and pulmonary services have been consulted. At this time patient is resting comfortably in bed. Patient still complaining of cough with some shortness of breath. Patient denies a chest pain at this time. Patient denies nausea vomiting or diarrhea. Patient denies any urinary burning or frequency. Review of Systems please refer to HPI otherwise unremarkable Past Medical History Past Medical History: Hyperlipidemia, Hypertension, Myocardial Infarction ([place]), Osteoarthritis (OA), Thyroid Disorder Additional Past Medical History / Comment(s): Chronic cervical pain/herniated disks in neck, arthritis in knees/feet, recent sinus infection treated with antibiotic. Last Myocardial Infarction Date:: 03/07/19 History of Any Multi-Drug Resistant Organisms: None Reported Past Surgical History: Heart Catheterization With Stent, Orthopedic Surgery, Tubal Ligation Additional Past Surgical History / Comment(s): R knee arthroscopy Past Anesthesia/Blood Transfusion Reactions: No Reported Reaction Date of Last Stent Placement:: 03/07/19 Past Psychological History: No Psychological Hx Reported Additional Psychological History / Comment(s): Pt resides with her spouse. She works 6pm-6am for [employer]. She does alot of lifting, pushing and pulling. She does not drive, her spouse drives. Smoking Status: Former smoker Past Alcohol Use History: None Reported Additional Past Alcohol Use History / Comment(s): patient states she has not smoked since her heart attack over a month ago. Past Drug Use History: None Reported - Past Family History Father Additional Family Medical History / Comment(s): Father had heart problems. He had surgery and "it didn't go too well" and he . Mother Family Medical History: Cancer Additional Family Medical History / Comment(s): Mother of lung cancer at the age of 70 yrs. Medications and Allergies Home Medications Medication Instructions Recorded Confirmed Type Levothyroxine Sodium [Synthroid] 100 mcg PO DAILY 02/07/19 05/02/19 History Nicotine 21Mg/24Hr Patch [Habitrol] 1 patch TRANSDERM DAILY 03/07/19 05/02/19 History Aspirin 81 mg PO DAILY #39 chew 03/11/19 05/02/19 Rx Atorvastatin [Lipitor] 80 mg PO HS #30 tab 03/11/19 05/02/19 Rx Lisinopril [Zestril] 5 mg PO DAILY #30 tab 03/11/19 05/02/19 Rx Metoprolol Succinate (ER) [Toprol 25 mg PO DAILY #30 tab.er.24h 03/11/19 05/02/19 Rx XL] Nitroglycerin Sl Tabs [Nitrostat] 0.4 mg SUBLINGUAL Q5M PRN #25 tab 03/11/19 05/02/19 Rx Clopidogrel Bisulfate [Plavix] 75 mg PO DAILY 05/02/19 05/02/19 History HYDROcodone/APAP 5-325MG [[place] 1 tab PO Q6H PRN 05/02/19 05/02/19 History 5-325] Allergies Allergy/AdvReac Type Severity Reaction Status Date / Time ticagrelor [From Brilinta] AdvReac Nausea & Verified 05/02/19 07:23 Vomiting Physical Exam Vitals: Vital Signs Temp Pulse Pulse Resp BP BP Pulse Ox 05/02/19 07:45 97.3 F L 76 16 113/63 94 L 05/02/19 04:39 97.8 F 71 18 143/95 95 05/02/19 04:26 73 20 138/79 96 05/02/19 00:32 97.5 F L 80 17 126/69 97 Intake and Output 05/01/19 05/02/19 05/02/19 22:59 06:59 14:59 Other: # Voids 1 Weight 88.451 kg Head normocephalic Neck supple Lungs diminished bilaterally Heart regular rate and rhythm S1-S2, no rub or gallop Abdomen is soft nontender nondistended positive bowel sounds no hepatosplenomegaly Extremities no edema Neuro alert and orientated to 3 Results CBC & Chem 7: 05/02/19 07:17 05/02/19 07:17 Labs: Abnormal Lab Results - Last 24 Hours (Table) 05/02/19 05/02/19 05/02/19 Range/Units 00:59 00:59 02:30 WBC 13.1 H (3.8-10.6) k/uL Hgb (11.4-16.0) gm/dL Neutrophils # 10.5 H (1.3-7.7) k/uL Chloride (98-107) mmol/L BUN 24 H (7-17) mg/dL Creatinine 1.08 H (0.52-1.04) mg/dL Glucose 173 H (74-99) mg/dL Alkaline Phosphatase 138 H (38-126) U/L Urine Appearance Cloudy H (Clear) Urine Protein 1+ H (Negative) Ur Leukocyte Esterase Moderate H (Negative) Urine WBC 7 H (0-5) /hpf Ur Squamous Epith Cells 12 H (0-4) /hpf Urine Bacteria Occasional H (None) /hpf Hyaline Casts 438 H (0-2) /lpf Urine Mucus Many H (None) /hpf 05/02/19 05/02/19 Range/Units 07:17 07:17 WBC (3.8-10.6) k/uL Hgb 11.2 L (11.4-16.0) gm/dL Neutrophils # (1.3-7.7) k/uL Chloride 112 H (98-107) mmol/L BUN 19 H (7-17) mg/dL Creatinine (0.52-1.04) mg/dL Glucose 124 H (74-99) mg/dL Alkaline Phosphatase (38-126) U/L Urine Appearance (Clear) Urine Protein (Negative) Ur Leukocyte Esterase (Negative) Urine WBC (0-5) /hpf Ur Squamous Epith Cells (0-4) /hpf Urine Bacteria (None) /hpf Hyaline Casts (0-2) /lpf Urine Mucus (None) /hpf Microbiology - Last 24 Hours (Table) 05/02/19 02:30 Urine Culture - Preliminary Urine,Voided Thrombosis Risk Factor Assmnt - Choose All That Apply Any of the Below Risk Factors Present?: Yes Each Factor Represents 1 point: Age 41-60 years, Obesity (BMI >25) Other Risk Factors: No Other congenital or acquired thrombophilia - If yes, enter type in comment: No Thrombosis Risk Factor Assessment Total Risk Factor Score: 2 Thrombosis Risk Factor Assessment Level: Low Risk Assessment and Plan Assessment: 1. Increased shortness of breath possibly related to pneumonia. Chest x-ray completed showing unchanged heart size. Increased opacity in the right lower lobe, possibly infection or atelectasis and pleural effusion. Patient started on Rocephin and azithromycin. DuoNeb breathing treatments ordered. Sputum culture ordered. Pulmonary services consulted. Repeat 2 view chest x-ray ordered for a.m. 2. Chest pain with dizziness. Troponins negative 2. Cardiology services have been consulted. Orders for stress test placed per cardiology 3. History of inferior wall myocardial infarction. Patient underwent stents to RCA and LAD proximal Lasix weeks ago. Patient has been taking Plavix. 4. Possible urinary tract infection. UA showing moderate amount of leukocyte esterase possible contamination. Patient is on Rocephin. Urine culture ordered 5. History of hyperlipidemia 6. History of essential hypertension 7. History of osteoporosis 8. History of hypothyroidism 9. Chronic back pain 10. Ex-smoker DVT PROPHYLAXIS HEPARIN. GI PROPHYLAXIS pepcid Time with Patient: Greater than 30 (Greater than 60% of the total time spent in counseling and coordination of care. I performed an examination of the patient and discussed their management with the Nurse Practitioner. I have reviewed the Nurse Practitioner's notes and agree with the documented findings and plan of care)
[2019-05-02] MEDS: IPRATROPIUM-ALBUTEROL 3 ML NEB INHALATION SCH ×2 (15:13→19:06)
--- NOTE | 2019-05-02 16:27 | P.CNPUL ---
History of Present Illness Consult date: 05/02/19 Reason for consult: dyspnea, chest pain History of present illness: 58-year-old here patient presented to ED with shortness of breath and chest p ain. The patient is known to have coronary disease. The patient underwent a cardiac catheterization approximately 6 weeks ago with stenting of the RCA and subsequent stenting of the LAD's lesions. After going back to work, she started expressing some dizziness and fatigue along with chest pain or shortness of breath. For that reason she end up coming back to the hospital. Cardiac enzymes including troponins have been negative. EKG showed normal sinus rhythm and there was an inferior wall infarct age undetermined as the patient has Q waves involving the inferior leads. No ST segment elevation or depression. Chest x-ray showed limited atelectatic changes/questionable infiltrates of the right lower lobe. The patient was admitted to the hospital for further investigation. White cell count was at 13. She was started on, initially Rocephin and Zithromax. The patient has no other history of syncope or palpitations or loss of consciousness. No fever. No chills. No pleurisy. No hemoptysis. She is known to have previous history of smoking. She is an ex- smoker. She has hypothyroidism hypertension and hyperlipidemia and osteoarthritis. Note that the patient has an extensive cardiac history. Back in February 2019 the patient presented to the hospital on 03/07/[address] with acute inferior wall ST segment elevation myocardial infarction. The patient underwent a cardiac catheterization and the patient had successful balloon and depressed and stenting of the RCA with good angiographic results. Subsequently the patient underwent further intervention to the LAD on 03/09/2019 with 2 stents placed in the mid and the proximal LAD that she for patency. Review of Systems A 14 point review of system was done and the positive findings are all mentioned above in history of present illness Constitutional: Denies chills, Denies fever Eyes: denies blurred vision, denies bulging eye, denies decreased vision Ears: deny: decreased hearing, ear discharge, earache, tinnitus Ears, nose, mouth and throat: Reports as per HPI Breasts: absent: as per HPI, change in shape, gynecomastia, masses, nipple discharge, pain, skin changes, swelling Cardiovascular: Reports chest pain Respiratory: Reports dyspnea Gastrointestinal: Denies abdominal pain, Denies diarrhea, Denies nausea, Denies vomiting Genitourinary: Reports as per HPI Menstruation: Reports as per HPI Musculoskeletal: Reports as per HPI Musculoskeletal: absent: ankle pain, ankle stiffness, ankle swelling Integumentary: Reports as per HPI Neurological: Reports as per HPI Psychiatric: Reports as per HPI Endocrine: Reports as per HPI Hematologic/Lymphatic: Reports as per HPI Allergic/Immunologic: Reports as per HPI Past Medical History Past Medical History: Coronary Artery Disease (CAD) (Post inferior wall ST segment elevation myocardial infarction. Post stenting of RCA, post undergo the mid and proximal LAD.), Hyperlipidemia, Hypertension, Myocardial Infarction ([place]), Osteoarthritis (OA), Thyroid Disorder Additional Past Medical History / Comment(s): Chronic cervical pain/herniated disks in neck, arthritis in knees/feet, recent sinus infection treated with antibiotic. Last Myocardial Infarction Date:: 03/07/19 History of Any Multi-Drug Resistant Organisms: None Reported Past Surgical History: Heart Catheterization With Stent, Orthopedic Surgery, Tubal Ligation Additional Past Surgical History / Comment(s): R knee arthroscopy Past Anesthesia/Blood Transfusion Reactions: No Reported Reaction Date of Last Stent Placement:: 03/07/19 Past Psychological History: No Psychological Hx Reported Additional Psychological History / Comment(s): Pt resides with her spouse. She w [employer] 6pm-6am for [employer]. She does alot of lifting, pushing and pulling. She does not drive, her spouse drives. Smoking Status: Former smoker Past Alcohol Use History: None Reported Additional Past Alcohol Use History / Comment(s): patient states she has not smoked since her heart attack over a month ago. Past Drug Use History: None Reported - Past Family History Father Additional Family Medical History / Comment(s): Father had heart problems. He had surgery and "it didn't go too well" and he . Mother Family Medical History: Cancer Additional Family Medical History / Comment(s): Mother of lung cancer at the age of 70 yrs. Medications and Allergies Home Medications Medication Instructions Recorded Confirmed Type Levothyroxine Sodium [Synthroid] 100 mcg PO DAILY 02/07/19 05/02/19 History Nicotine 21Mg/24Hr Patch [Habitrol] 1 patch TRANSDERM DAILY 03/07/19 05/02/19 History Aspirin 81 mg PO DAILY #39 chew 03/11/19 05/02/19 Rx Atorvastatin [Lipitor] 80 mg PO HS #30 tab 03/11/19 05/02/19 Rx Lisinopril [Zestril] 5 mg PO DAILY #30 tab 03/11/19 05/02/19 Rx Metoprolol Succinate (ER) [Toprol 25 mg PO DAILY #30 tab.er.24h 03/11/19 05/02/19 Rx XL] Nitroglycerin Sl Tabs [Nitrostat] 0.4 mg SUBLINGUAL Q5M PRN #25 tab 03/11/19 05/02/19 Rx Clopidogrel Bisulfate [Plavix] 75 mg PO DAILY 05/02/19 05/02/19 History HYDROcodone/APAP 5-325MG [[place] 1 tab PO Q6H PRN 05/02/19 05/02/19 History 5-325] Allergies Allergy/AdvReac Type Severity Reaction Status Date / Time ticagrelor [From Brilinta] AdvReac Nausea & Verified 05/02/19 07:23 Vomiting Physical Exam Vitals: Vital Signs Temp Pulse Pulse Resp BP BP Pulse Ox 05/02/19 15:27 70 12 05/02/19 15:15 70 12 96 05/02/19 07:45 97.3 F L 76 16 113/63 94 L 05/02/19 04:39 97.8 F 71 18 143/95 95 05/02/19 04:26 73 20 138/79 96 05/02/19 00:32 97.5 F L 80 17 126/69 97 Intake and Output 05/02/19 05/02/19 05/02/19 06:59 14:59 22:59 Intake Total 240 Balance 240 Intake: Oral 240 Other: # Voids 1 Weight 88.451 kg The patient appeared well nourished and normally developed. Vital signs as documented. Head exam is unremarkable. No scleral icterus or corneal arcus noted. Neck is without jugular venous distension, thyromegaly, or carotid bruits. Carotid upstrokes are brisk bilaterally. Lungs are clear to auscultation and percussion. Cardiac exam reveals the PMI to be normally sized and situated. Rhythm is regular. First and second heart sounds normal. No murmurs, rubs or gallops. Abdominal exam reveals normal bowel sounds, no masses, no organomegaly and no aortic enlargement. Extremities are nonedematous and both femoral and pedal pulses are normal.Examination of the skin revealed no evidence of significant rashes, suspicious appearing nevi or other concerning lesions. Neurologically awake and alert and there is no focal neurological deficit Results - Laboratory Findings CBC and BMP: 05/02/19 07:17 05/02/19 07:17 PT/INR, D-dimer PT 10.3 sec (9.0-12.0) 05/02/19 00:59 INR 1.0 (<1.2) 05/02/19 00:59 Abnormal lab findings: Abnormal Labs 05/02/19 05/02/19 05/02/19 00:59 00:59 02:30 WBC 13.1 H Hgb Neutrophils # 10.5 H Chloride BUN 24 H Creatinine 1.08 H Glucose 173 H Alkaline Phosphatase 138 H Urine Appearance Cloudy H Urine Protein 1+ H Ur Leukocyte Esterase Moderate H Urine WBC 7 H Ur Squamous Epith Cells 12 H Urine Bacteria Occasional H Hyaline Casts 438 H Urine Mucus Many H 05/02/19 05/02/19 07:17 07:17 WBC Hgb 11.2 L Neutrophils # Chloride 112 H BUN 19 H Creatinine Glucose 124 H Alkaline Phosphatase Urine Appearance Urine Protein Ur Leukocyte Esterase Urine WBC Ur Squamous Epith Cells Urine Bacteria Hyaline Casts Urine Mucus - Diagnostic Findings Chest x-ray: image reviewed Assessment and Plan Plan: Assessment 1 chest pain/shortness of breath, under investigation. Troponin is a been negative. EKG showing an old Q wave involving the inferior leads. The patient underwent a recent cardiac catheterization with stenting of the RCA following an acute inferior wall non-STEMI and subsequently the patient underwent further stenting of the left anterior descending and the patient had successful stenting of the proximal LAD with drug-eluting stent and successful stenting of the mid LAD lesion with drug-eluting stents. 2 hypertension 3 hyperlipidemia 4 hypothyroidism 5 osteoporosis 6 chronic back and neck pain 7 recent catheterization for a few wall myocardial infarction details discussed above Plan Add pro calcitonin level. Agree on the current treatment. Cardiology evalua tion. We'll continue to follow.
[2019-05-02] MEDS: ATORVASTATIN 80 MG TAB PO SCH (20:14)
[2019-05-02] MEDS: HEPARIN SODIUM,PORCINE 5,000 UNIT/ML 1 ML VIAL SQ SCH (20:15)
[2019-05-03] MEDS: HYDROcodone/APAP 5-325MG 1 EACH TAB PO PRN ×3 (04:35→22:59)
[2019-05-03] MEDS: LEVOTHYROXINE 100 MCG TAB PO SCH (05:14)
[2019-05-03] MEDS ORDERED: AZITHROMYCIN 500 MG in SODIUM CHLORIDE 0.9% 250 ML IVPB SCH (06:00)
[2019-05-03] MEDS: IPRATROPIUM-ALBUTEROL 3 ML NEB INHALATION SCH ×4 (07:33→20:04)
[2019-05-03 07:40] LABS: ALT 14 U/L (9-52); AST 18 U/L (14-36); African American GFR (CKD) >90 (>60 ml/min/1.73 sqM); Albumin 3.5 g/dL (3.5-5.0); Alkaline Phosphatase 108 U/L (38-126); Anion Gap 8 mmol/L; Blood Urea Nitrogen 24 mg/dL (7-17); Calcium 8.8 mg/dL (8.4-10.2); Carbon Dioxide 23 mmol/L (22-30); Chloride 112 mmol/L (98-107); Glucose 130 mg/dL (74-99); Potassium 4.4 mmol/L (3.5-5.1); Sodium 143 mmol/L (137-145); Total Bilirubin 0.4 mg/dL (0.2-1.3); Total Protein 6.5 g/dL (6.3-8.2)
[2019-05-03 08:14] LABS: Basophils % (A) 1 %; Eosinophils # (A) 0.4 k/uL (0-0.7); Eosinophils % (A) 6 %; HCT 35.7 % (34.0-46.0); HGB 11.3 gm/dL (11.4-16.0); Hypochromasia Slight; Lymphocytes # (A) 1.7 k/uL (1.0-4.8); Lymphocytes % (A) 29 %; MCH 28.4 pg (25.0-35.0); MCHC 31.5 g/dL (31.0-37.0); MCV 90.1 fL (80.0-100.0); Mean Platelet Volume 7.3; Monocytes # (A) 0.4 k/uL (0-1.0); Monocytes % (A) 6 %; Neutrophils # (A) 3.3 k/uL (1.3-7.7); Neutrophils % (A) 57 %; Platelet Count 259 k/uL (150-450); RBC 3.97 m/uL (3.80-5.40); RDW 14.4 % (11.5-15.5); WBC 5.8 k/uL (3.8-10.6)
[2019-05-03] MEDS: HEPARIN SODIUM,PORCINE 5,000 UNIT/ML 1 ML VIAL SQ SCH ×2 (08:19→23:00)
[2019-05-03] MEDS ORDERED: CAFFEINE CITRATE 60 MG/3 ML VIAL IV PRN (09:23)
[2019-05-03] MEDS ORDERED: AMINOPHYLLINE 500 MG/20 ML VIAL IV PRN (09:23)
[2019-05-03] MEDS ORDERED: SODIUM CHLORIDE 0.9% IV ONE ×4 (09:30)
[2019-05-03] MEDS ORDERED: DIPYRIDAMOLE IV ONE ×4 (09:30)
--- NOTE | 2019-05-03 09:47 | XR ---
EXAMINATION TYPE: XR chest 2V DATE OF EXAM: 05/03/2019 COMPARISON: Prior chest x-ray 05/02/2019 HISTORY: Abnormal chest x-ray, follow-up TECHNIQUE: Frontal and lateral views of the chest are obtained. FINDINGS: Interstitium is increased. Cardiac mediastinal silhouette, pulmonary vascularity and miguel are stable. Biapical pleural thickening is again noted. No pneumothorax or pleural effusion. Bandlike area of increased attenuation is present at the left costophrenic angle. Abnormal increased density present along the right pleural margin laterally and inferiorly. There are overlying cardiac leads an d prominent lung volumes. Aorta is dense. IMPRESSION: Correlate for atelectasis versus pneumonia. Suspect underlying interstitial lung disease , emphysema. Follow-up suggested.
[2019-05-03] MEDS ORDERED: AMINOPHYLLINE 500 MG/20 ML VIAL IV ONE (10:00)
[2019-05-03] MEDS: FAMOTIDINE 20 MG TAB PO SCH (12:10)
[2019-05-03] MEDS: METOPROLOL SUCCINATE (ER) 25 MG TAB.ER.24H PO SCH (12:10)
[2019-05-03] MEDS: CLOPIDOGREL 75 MG TAB PO SCH (12:11)
[2019-05-03 12:35] LABS: Glucose,Whole Blood 196 mg/dL (75-99)
--- NOTE | 2019-05-03 12:38 | ECHOF ---
Referral Reason:Chest pain and cardiomyopathy MEASUREMENTS -------- HEIGHT: 154.9 cm WEIGHT: 88.9 kg BP: 134/61 IVSd: 1.4 cm (0.6 - 1.1) LVIDd: 3.7 cm (3.9 - 5.3) LVPWd: 1.4 cm (0.6 - 1.1) IVSs: 1.7 cm LVIDs: 2.4 cm LVPWs: 1.8 cm LAESV Index (A-L): 29.23 ml/m Ao Diam: 3.2 cm (2.0 - 3.7) AV Cusp: 2.1 cm (1.5 - 2.6) LA Diam: 2.9 cm (2.7 - 3.8) MV E Rene: 1.11 m/s MV DecT: 218 ms MV A Rene: 0.93 m/s MV E/A Ratio: 1.19 AR PHT: 468 ms RAP: 5.00 mmHg RVSP: 43.34 mmHg FINDINGS -------- Sinus rhythm. This was a technically good study. The left ventricular size is normal. There is moderate concentric left ventricular hypertrophy. O verall left ventricular systolic function is normal with, an EF between 55 - 60 %. The right ventricle is normal in size. Left atrium is mildly dilated by volume. The right atrial size is normal. The aortic valve is trileaflet and appears structurally normal. Trace amount of aortic regurgitatio n. The mitral valve leaflets are mildly thickened. Lgcwbswt-[id number] mitral regurgitation is present. Nliv-el-zaywehsl tricuspid regurgitation present. There is mild pulmonary hypertension. The right ventricular systolic pressure, as measured by Doppler, is 43.34mmHg. There is no pulmonic regurgitation present. The aortic root size is normal. The inferior vena cava was not well visualized. There is no pericardial effusion. CONCLUSIONS -------- 1. Sinus rhythm. 2. This was a technically good study. 3. The left ventricular size is normal. 4. There is moderate concentric left ventricular hypertrophy. 5. Overall left ventricular systolic function is normal with, an EF between 55 - 60 %. 6. The right ventricle is normal in size. 7. Left atrium is mildly dilated by volume. 8. The aortic valve is trileaflet and appears structurally normal. 9. Trace amount of aortic regurgitation. 10. The mitral valve leaflets are mildly thickened. 11. Dpkhpqif-zz-izildd mitral regurgitation is present. 12. Gqun-sl-mkbxsbog tricuspid regurgitation present. 13. There is mild pulmonary hypertension. 14. There is no pulmonic regurgitation present. 15. The aortic root size is normal. 16. The inferior vena cava was not well visualized. 17. There is no pericardial effusion. [employer] OPERATOR: Katy Munoz RDCS
--- NOTE | 2019-05-03 12:59 | P.PN ---
Subjective Progress Note Date: 05/03/19 This is a 58-year-old female patient who presents to ER with complaints of dizziness shortness of breath and chest pain. Patient recently underwent a cardiac cath in which she received stents to RCA approximately 6 weeks ago patient reports that this was her first day back at work she started to experien cing dizziness and fatigue along with chest pain and shortness of breath. Additional medical history includes hyperlipidemia, hypertension, myocardial infarction, osteoarthritis and hypothyroidism and ex-smoker. Chest x-ray completed showing unchanged heart size. Increased opacity seen in the right lower lobe possibly infection or atelectasis no pleural effusion. EKG completed showing normal sinus rhythm. Inferior infarct, age undetermined. Troponins negative 2. Patient reports that she has been taking her medications as prescribed including her Plavix. Patient with cell initially 13.1. Patient started on azithromycin and Rocephin. Cardiology and pulmonary services have been consulted. At this time patient is resting comfortably in bed. Patient still complaining of cough with some shortness of breath. Patient denies a chest pain at this time. Patient denies nausea vomiting or diarrhea. Patient denies any urinary burning or frequency. On 05/03/2019 patient is alert and oriented 3. Patient underwent stress test awaiting results. Patient remains on Rocephin and azithromycin per pulmonary for pneumonia. Patient complaining of shakiness. Will check blood sugar. Pat ient also requesting nicotine patch. Nicotine patch will be ordered. Patient denies any chest pain or shortness of breath. Patient denies nausea vomiting or diarrhea. Patient denies any urinary burning or frequency Objective - Vital Signs Vital signs: Vital Signs Temp 97.4 F L 05/03/19 08:00 Pulse 73 05/03/19 12:00 Resp 16 05/03/19 12:00 BP 155/73 05/03/19 12:00 Pulse Ox 93 L 05/03/19 12:00 Intake & Output 05/02/19 05/03/19 05/03/19 18:59 06:59 18:59 Intake Total 240 540 Balance 240 540 Weight 89.1 kg Intake: Intake, IV Titration 300 Amount Azithromycin 500 mg In 250 Sodium Chloride 0.9% 250 ml @ 250 mls/hr IVPB DAILY@0600 [facility] Rx#: [id number] cefTRIAXone 1 gm In 50 Sodium Chloride 0.9% 50 ml @ 100 mls/hr IVPB Q24H [facility] Rx#:[id number] Oral 240 240 Other: Voiding Method Toilet Toilet Toilet # Voids 1 1 - Exam Head normocephalic Neck supple Lungs diminished bilaterally Heart regular rate and rhythm S1-S2, no rub or gallop Abdomen is soft nontender nondistended positive bowel sounds no hepatosplenomegaly Extremities no edema Neuro alert and orientated to 3 - Labs CBC & Chem 7: 05/03/19 06:12 05/03/19 06:12 Labs: Abnormal Lab Results - Last 24 Hours (Table) 05/03/19 05/03/19 05/03/19 Range/Units 06:12 06:12 12:33 Hgb 11.3 L (11.4-16.0) gm/dL Chloride 112 H (98-107) mmol/L BUN 24 H (7-17) mg/dL Glucose 130 H (74-99) mg/dL POC Glucose (mg/dL) 196 H (75-99) mg/dL Microbiology - Last 24 Hours (Table) 05/02/19 02:30 Urine Culture - Final Urine,Voided Assessment and Plan Assessment: 1. Increased shortness of breath possibly related to pneumonia. Chest x-ray completed showing unchanged heart size. Increased opacity in the right lower l obe, possibly infection or atelectasis and pleural effusion. Patient started on Rocephin and azithromycin. DuoNeb breathing treatments ordered. Sputum culture ordered. Pulmonary services consulted. Repeat chest x-ray showing correlation for atelectasis versus pneumonia suspect underlying interstitial lung disease emphysema follow-up suggested. Patient remains on IV antibiotics, services are following 2. Chest pain with dizziness. Troponins negative 2. Cardiology services have been consulted. Stress test completed awaiting results. 2-D echo completed showing EF of 55-60%. 3. History of inferior wall myocardial infarction. Patient underwent stents to RCA and LAD proximal Lasix weeks ago. Patient has been taking Plavix. 4. Possible urinary tract infection. UA showing moderate amount of leukocyte esterase possible contamination. Patient is on Rocephin. Urine culture ordered 5. History of hyperlipidemia 6. History of essential hypertension 7. History of osteoporosis 8. History of hypothyroidism 9. Chronic back pain 10. Nicotine dependence. Patient educated longer than 3 minutes insulin cessation. Nicotine patch has been ordered DVT PROPHYLAXIS HEPARIN. GI PROPHYLAXIS pepcid I performed an examination of the patient and discussed their management with the Nurse Practitioner. I have reviewed the Nurse Practitioner's notes and agree with the documented findings and plan of care
--- NOTE | 2019-05-03 13:09 | NM ---
EXAMINATION TYPE: NM stress persantine cardiolit DATE OF EXAM: 05/03/2019 COMPARISON: None HISTORY: Shortness of breath, coronary artery disease, palpitations TECHNIQUE: After the intravenous administration of 10.3 mCi Tc 99m Sestamibi - Cardiolite resting SP ECT images acquired 45 minutes post injection. The patient received 50 mg Persantine, 25.4 mCi Tc 99m Sestamibi - Stress images obtained 30 minutes post injection FINDINGS: Review of stress and rest SPECT images demonstrates no distinct perfusion abnormality. Gated analysi s shows normal wall motion with an estimated left ventricular ejection fraction of 51 %. IMPRESSION: No scintigraphic evidence for reversible ischemia.
[2019-05-03] MEDS: NICOTINE 14MG/24HR PATCH TRANSDERM SCH (13:36)
--- NOTE | 2019-05-03 13:37 | P.PN ---
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 At that time patient had high degree AV block requiring temporary pacemaker implantation. Subsequently patient also had stent placement of the left anteri or descending coronary artery, both in the proximal and midportion. Patient went to work yesterday for the first time after the heart attack. 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 Patient went and sat for a long time. Finally patient called her came to the emergency room. She did not have any chest pain. She said some of the symptoms are similar to what she felt when she had a heart attack though she did not have chest pain this time. Her EKGs did not reveal any acute changes. Her cardiac enzymes are negative. Chest x-ray showed questionable pneumonia versus atelectasis of the right lower lobe. Her white count was mildly elevated on admission but came back to normal today. No complaints of any fever or chills. Patient does have some chronic cough. She is to be a smoker but hasn't been smoking since heart attack. 05/03/2019 Patient was seen and examined this morning, underwent a Persantine stress test today, results are yet pending. Echocardiogram with Doppler study revealed an ejection fraction of 55-60% with moderate to severe mitral regurgitation and mild to moderate tricuspid regurgitation. Blood pressure 154/70 with a heart rate in the 70s, 93% on room air. Objective - Vital Signs Vital signs: Vital Signs Temp 97.4 F L 05/03/19 08:00 Pulse 73 05/03/19 12:00 Resp 16 05/03/19 12:00 BP 155/73 05/03/19 12:00 Pulse Ox 93 L 05/03/19 12:00 Intake & Output 05/02/19 05/03/19 05/03/19 18:59 06:59 18:59 Intake Total 240 540 Balance 240 540 Weight 89.1 kg Intake: Intake, IV Titration 300 Amount Azithromycin 500 mg In 250 Sodium Chloride 0.9% 250 ml @ 250 mls/hr IVPB DAILY@0600 [facility] Rx#: [id number] cefTRIAXone 1 gm In 50 Sodium Chloride 0.9% 50 ml @ 100 mls/hr IVPB Q24H [facility] Rx#:[id number] Oral 240 240 Other: Voiding Method Toilet Toilet Toilet # Voids 1 1 - Exam PHYSICAL EXAMINATION: GENERAL: 58-year-old female in no acute distress at the time of my examination HEENT: Head is atraumatic, normocephalic. Pupils equal, round. Sclera anicteric. Conjunctiva are clear. Mucous membranes of the mouth are moist. Neck is supple. There is no elevated jugular venous pressure. No carotid bruit is heard. HEART EXAMINATION: Heart S1, S2 normal. No murmur or gallop heard. CHEST EXAMINATION: Lungs are clear to auscultation and precussion. No chest wall tenderness is noted on palpation or with deep breathing. ABDOMEN: Soft, nontender. Bowel sounds are heard. No organomegaly noted. EXTREMITIES: 2+ peripheral pulses with no evidence of peripheral edema and no calf tenderness noted. NEUROLOGIC patient is awake, alert and oriented 3 . . - Labs CBC & Chem 7: 05/03/19 06:12 05/03/19 06:12 Labs: Abnormal Lab Results - Last 24 Hours (Table) 05/03/19 05/03/19 05/03/19 Range/Units 06:12 06:12 12:33 Hgb 11.3 L (11.4-16.0) gm/dL Chloride 112 H (98-107) mmol/L BUN 24 H (7-17) mg/dL Glucose 130 H (74-99) mg/dL POC Glucose (mg/dL) 196 H (75-99) mg/dL Microbiology - Last 24 Hours (Table) 05/02/19 02:30 Urine Culture - Final Urine,Voided Assessment and Plan Plan: Assessment and plan 1. Increased shortness of breath possibly related to pneumonia. 2. Chest pain with dizziness. Troponins negative 3. 3. History of inferior wall myocardial infarction. Patient underwent stents to RCA and LAD proximal Lasix weeks ago. Patient has been taking Plavix. 4. Possible urinary tract infection. 5. History of hyperlipidemia 6. History of essential hypertension 7. History of osteoporosis 8. History of hypothyroidism 9. Chronic back pain 10. Ex-smoker Plan Patient underwent a Persantine stress test today, if negative she may be able to be discharged home from our perspective and we'll make a follow-up appointment for her in the office post discharge. DNP note has been reviewed, I agree with a documented findings and plan of care. Patient was seen and examined.
--- NOTE | 2019-05-03 13:43 | EST ---
EXERCISE STRESS DATE OF SERVICE: 05/03/2019 AGE: 58 SEX: Female HT: 60" WT: 196 pounds PROTOCOL: Persantine Cardiolite STAGE: DURATION OF EXERCISE: HEART RATE REST: 64 BLOOD PRESSURE REST: 133/74 MAXIMUM HEART RATE ACHIEVED: 90 MAXIMUM BLOOD PRESSURE: 134/56 85% MPHR: 100% MPHR: METS: INDICATIONS: Short of breath. CLINICAL INFORMATION: Baseline rhythm is sinus mechanism, rate 64, normal axis and intervals, early transition with evidence of inferior myocardial infarction. Baseline blood pressure 133/74 mmHg. Patient received the infusion of dipyridamole per protocol. Peak rate 90 beats per minute. Peak blood pressure 134/56 mmHg. Electrocardiograph monitoring revealed no evidence of diagnostic ischemic ST deviation. Cardiolite was injected per protocol. CONCLUSION: 1. Nondiagnostic electrocardiograph stress testing. 2. Nuclear images will be reported separately. MMODL / LALON: [id number] /
--- NOTE | 2019-05-03 14:07 | P.PN ---
Subjective Progress Note Date: 05/03/19 Principal diagnosis: Dyspnea, chest pain 58-year-old here patient presented to ED with shortness of breath and chest pain. The patient is known to have coronary disease. The patient underwent a cardiac catheterization approximately 6 weeks ago with stenting of the RCA and subsequent stenting of the LAD's lesions. After going back to work, she started expressing some dizziness and fatigue along with chest pain or shortness of breath. For that reason she end up coming back to the hospital. Cardiac enzymes including troponins have been negative. EKG showed normal sinus rhythm and there was an inferior wall infarct age undetermined as the patient has Q waves involving the inferior leads. No ST segment elevation or depression. Chest x-ray showed limited atelectatic changes/questionable infiltrates of the right lower lobe. The patient was admitted to the hospital for further investigation. White cell count was at 13. She was started on, initially Rocephin and Zithromax. The patient has no other history of syncope or palpitations or loss of consciousness. No fever. No chills. No pleurisy. No hemoptysis. She is known to have previous history of smoking. She is an ex- smoker. She has hypothyroidism hypertension and hyperlipidemia and osteoarthritis. Note that the patient has an extensive cardiac history. Back in February 2019 the patient presented to the hospital on 03/07/2019 with acute inferior wall ST segment elevation myocardial infarction. The patient underwent a cardiac catheterization and the patient had successful balloon and depressed and stenting of the RCA with good angiographic results. Subsequently the patient underwent further intervention to the LAD on 03/09/2019 with 2 stents placed in the mid and the proximal LAD that she for patency. The patient is seen today 05/03/2019 in follow-up on the regular medical floor. She is currently sitting up at bedside. She is awake and alert in no acute distress. She is having some continued issues with dizziness and anxiousness. Stating this is similar to what brought her to the hospital. She did undergo a Persantine stress test today that revealed no evidence of reversible ischemia. Ejection fraction 51%. Chest x-ray shows basilar atelectasis. Emphysema. White count 5.8. Hemoglobin 11.3. Creatinine 0.71. She remains on bronchodilators, antibiotics in the form of Omnicef and azithromycin. NicoDerm patch is in place. Echocardiogram did reveal moderate to severe mitral regurgitation. Preserved left ventricular systolic function. Ejection fraction 55-60%. Objective - Vital Signs Vital signs: Vital Signs Temp 97.4 F L 05/03/19 08:00 Pulse 73 05/03/19 12:00 Resp 16 05/03/19 12:00 BP 155/73 05/03/19 12:00 Pulse Ox 93 L 05/03/19 12:00 Intake & Output 05/02/19 05/03/19 05/03/19 18:59 06:59 18:59 Intake Total 240 540 Balance 240 540 Weight 89.1 kg Intake: Intake, IV Titration 300 Amount Azithromycin 500 mg In 250 Sodium Chloride 0.9% 250 ml @ 250 mls/hr IVPB DAILY@0600 [facility] Rx#: [id number] cefTRIAXone 1 gm In 50 Sodium Chloride 0.9% 50 ml @ 100 mls/hr IVPB Q24H [facility] Rx#:[id number] Oral 240 240 Other: Voiding Method Toilet Toilet Toilet # Voids 1 1 - Exam The patient appeared well nourished and normally developed. Vital signs as documented. Head exam is unremarkable. No scleral icterus or corneal arcus not ed. Neck is without jugular venous distension, thyromegaly, or carotid bruits. Carotid upstrokes are brisk bilaterally. Lungs are clear to auscultation and percussion. Cardiac exam reveals the PMI to be normally sized and situated. Rhythm is regular. First and second heart sounds normal. Positive murmur, no rubs or gallops. Abdominal exam reveals normal bowel sounds, no masses, no organomegaly and no aortic enlargement. Extremities are nonedematous and both femoral and pedal pulses are normal.Examination of the skin revealed no evidence of significant rashes, suspicious appearing nevi or other concerning lesions. Neurologically awake and alert and there is no focal neurological deficit - Labs CBC & Chem 7: 05/03/19 06:12 05/03/19 06:12 Labs: Abnormal Lab Results - Last 24 Hours (Table) 05/03/19 05/03/19 05/03/19 Range/Units 06:12 06:12 12:33 Hgb 11.3 L (11.4-16.0) gm/dL Chloride 112 H (98-107) mmol/L BUN 24 H (7-17) mg/dL Glucose 130 H (74-99) mg/dL POC Glucose (mg/dL) 196 H (75-99) mg/dL Microbiology - Last 24 Hours (Table) 05/02/19 02:30 Urine Culture - Final Urine,Voided Assessment and Plan Assessment: Impression: 1 chest pain/shortness of breath, under investigation. Pro-calcitonin 0.05. Troponin is a been negative. EKG showing an old Q wave involving the inferior leads. The patient underwent a recent cardiac catheterization with stenting of the RCA following an acute inferior wall non-STEMI and subsequently the patient underwent further stenting of the left anterior descending and the patient had successful stenting of the proximal LAD with drug-eluting stent and successful stenting of the mid LAD lesion with drug-eluting stents. Stress testing today 05/03/2019 revealed no evidence of reversible ischemia. 2 hypertension 3 hyperlipidemia 4 hypothyroidism 5 osteoporosis 6 chronic back and neck pain 7 recent catheterization for a few wall myocardial infarction details discussed above Plan: The patient was seen and evaluated by Dr. Craft. She is currently stable from the pulmonary standpoint. She is again educated regarding the importance of complete smoking cessation. NicoDerm in place. Remains on bronchodilators and empiric antibiotics. I, the cosigning physician, performed a history & physical examination of the patient. Lungs sounds with faint crackles in the bilateral posterior bases. Maintaining good O2 saturations in the 90s on room air. I discussed the assessment and plan of care with my nurse practitioner, Zaria Smith. I attest to the above note as dictated by her.
[2019-05-03 21:08] VITALS: RESP 18
[2019-05-03] MEDS: ATORVASTATIN 80 MG TAB PO SCH (23:00)
[2019-05-04] MEDS: LEVOTHYROXINE 100 MCG TAB PO SCH (06:40)
[2019-05-04] MEDS: HYDROcodone/APAP 5-325MG 1 EACH TAB PO PRN (06:43)
[2019-05-04 07:34] LABS: Basophils % (A) 1 %; Eosinophils # (A) 0.3 k/uL (0-0.7); Eosinophils % (A) 5 %; HGB 10.9 gm/dL (11.4-16.0); Lymphocytes # (A) 1.2 k/uL (1.0-4.8); Lymphocytes % (A) 23 %; MCH 27.8 pg (25.0-35.0); MCV 86.8 fL (80.0-100.0); Mean Platelet Volume 6.8; Monocytes # (A) 0.3 k/uL (0-1.0); Monocytes % (A) 5 %; Neutrophils # (A) 3.4 k/uL (1.3-7.7); Neutrophils % (A) 64 %; Platelet Count 274 k/uL (150-450); RBC 3.92 m/uL (3.80-5.40); RDW 14.3 % (11.5-15.5); WBC 5.3 k/uL (3.8-10.6)
[2019-05-04 07:51] LABS: ALT 15 U/L (9-52); AST 16 U/L (14-36); African American GFR (CKD) >90 (>60 ml/min/1.73 sqM); Albumin 3.5 g/dL (3.5-5.0); Alkaline Phosphatase 100 U/L (38-126); Anion Gap 7 mmol/L; Blood Urea Nitrogen 15 mg/dL (7-17); Calcium 9.1 mg/dL (8.4-10.2); Carbon Dioxide 26 mmol/L (22-30); Chloride 110 mmol/L (98-107); Glucose 115 mg/dL (74-99); Potassium 4.1 mmol/L (3.5-5.1); Sodium 143 mmol/L (137-145); Total Bilirubin 0.5 mg/dL (0.2-1.3); Total Protein 6.4 g/dL (6.3-8.2)
[2019-05-04] MEDS: IPRATROPIUM-ALBUTEROL 3 ML NEB INHALATION SCH ×3 (08:02→15:17)
[2019-05-04] MEDS ORDERED: AZITHROMYCIN 500 MG TAB PO SCH (09:00)
[2019-05-04] MEDS ORDERED: CEFDINIR 300 MG CAP PO SCH (09:00)
[2019-05-04] MEDS: METOPROLOL SUCCINATE (ER) 25 MG TAB.ER.24H PO SCH (09:11)
[2019-05-04] MEDS: HEPARIN SODIUM,PORCINE 5,000 UNIT/ML 1 ML VIAL SQ SCH (09:11)
[2019-05-04] MEDS: NICOTINE 14MG/24HR PATCH TRANSDERM SCH (09:11)
[2019-05-04] MEDS: FAMOTIDINE 20 MG TAB PO SCH (09:11)
[2019-05-04] MEDS: CLOPIDOGREL 75 MG TAB PO SCH (09:12)
[2019-05-04] MEDS: ASPIRIN 81 MG PO SCH (09:12)
--- NOTE | 2019-05-04 10:57 | P.PN ---
Subjective Progress Note Date: 05/04/19 Principal diagnosis: Dyspnea, chest pain 58-year-old here patient presented to ED with shortness of breath and chest pain. The patient is known to have coronary disease. The patient underwent a cardiac catheterization approximately 6 weeks ago with stenting of the RCA and subsequent stenting of the LAD's lesions. After going back to work, she started expressing some dizziness and fatigue along with chest pain or shortness of breath. For that reason she end up coming back to the hospital. Cardiac enzymes including troponins have been negative. EKG showed normal sinus rhythm and there was an inferior wall infarct age undetermined as the patient has Q waves involving the inferior leads. No ST segment elevation or depression. Chest x-ray showed limited atelectatic changes/questionable infiltrates of the right lower lobe. The patient was admitted to the hospital for further investigation. White cell count was at 13. She was started on, initially Rocephin and Zithromax. The patient has no other history of syncope or palpitations or loss of consciousness. No fever. No chills. No pleurisy. No hemoptysis. She is known to have previous history of smoking. She is an ex- smoker. She has hypothyroidism hypertension and hyperlipidemia and osteoarthritis. Note that the patient has an extensive cardiac history. Back in February 2019 the patient presented to the hospital on 03/07/2019 with acute inferior wall ST segment elevation myocardial infarction. The patient underwent a cardiac catheterization and the patient had successful balloon and depressed and stenting of the RCA with good angiographic results. Subsequently the patient underwent further intervention to the LAD on 03/09/2019 with 2 stents placed in the mid and the proximal LAD that she for patency. The patient is seen today 05/03/2019 in follow-up on the regular medical floor. She is currently sitting up at bedside. She is awake and alert in no acute distress. She is having some continued issues with dizziness and anxiousness. Stating this is similar to what brought her to the hospital. She did undergo a Persantine stress test today that revealed no evidence of reversible ischemia. Ejection fraction 51%. Chest x-ray shows basilar atelectasis. Emphysema. White count 5.8. Hemoglobin 11.3. Creatinine 0.71. She remains on bronchodilators, antibiotics in the form of Omnicef and azithromycin. NicoDerm patch is in place. Echocardiogram did reveal moderate to severe mitral regurgitation. Preserved left ventricular systolic function. Ejection fraction 55-60%. The patient is seen today 05/04/2019 in follow-up on the regular medical floor. Currently sitting up in a chair. Awake and alert in no acute distress. She's been up ambulating in the hallway. She denies any worsening shortness of breath. She has a dry nonproductive cough. She does have some ongoing issues with dizziness. No chest pain or palpitations. She is maintaining good O2 saturations in the mid 90s on room air. She's been afebrile. Hemodynamically stable. White count 5.3. Hemoglobin 10.9. Creatinine 0.65. Objective - Vital Signs Vital signs: Vital Signs Temp 98.0 F 05/04/19 08:00 Pulse 78 05/04/19 08:06 Resp 18 05/04/19 08:00 BP 121/66 05/04/19 08:00 Pulse Ox 95 05/04/19 08:00 Intake & Output 05/03/19 05/04/19 05/04/19 18:59 06:59 18:59 Intake Total 222 120 Output Total 600 Balance -378 120 Weight 88.6 kg Intake: Oral 222 120 Output: Urine 600 Other: Voiding Method Toilet Toilet # Voids 1 1 - Exam The patient appeared well nourished and normally developed. Vital signs as documented. Head exam is unremarkable. No scleral icterus or corneal arcus noted. Neck is without jugular venous distension, thyromegaly, or carotid bruits. Carotid upstrokes are brisk bilaterally. Lungs are clear to auscultation and percussion. Cardiac exam reveals the PMI to be normally sized and situated. Rhythm is regular. First and second heart sounds normal. Positive murmur, no rubs or gallops. Abdominal exam reveals normal bowel sounds, no masses, no organomegaly and no aortic enlargement. Extremities are nonedematous and both femoral and pedal pulses are normal.Examination of the skin revealed no evidence of significant rashes, suspicious appearing nevi or other concerning lesions. Neurologically awake and alert and there is no focal neurological deficit - Labs CBC & Chem 7: 05/04/19 06:29 05/04/19 06:29 Labs: Abnormal Lab Results - Last 24 Hours (Table) 05/03/19 05/04/19 05/04/19 Range/Units 12:33 06:29 06:29 Hgb 10.9 L (11.4-16.0) gm/dL Chloride 110 H (98-107) mmol/L Glucose 115 H (74-99) mg/dL POC Glucose (mg/dL) 196 H (75-99) mg/dL Microbiology - Last 24 Hours (Table) 05/02/19 02:30 Urine Culture - Final Urine,Voided Assessment and Plan Assessment: Impression: 1 chest pain/shortness of breath, under investigation. Pro-calcitonin 0.05. Troponin is a been negative. EKG showing an old Q wave involving the inferior leads. The patient underwent a recent cardiac catheterization with stenting of the RCA following an acute inferior wall non-STEMI and subsequently the patient underwent further stenting of the left anterior descending and the patient had successful stenting of the proximal LAD with drug-eluting stent and successful stenting of the mid LAD lesion with drug-eluting stents. Stress testing 05/03/2019 revealed no evidence of reversible ischemia. 2 hypertension 3 hyperlipidemia 4 hypothyroidism 5 osteoporosis 6 chronic back and neck pain 7 recent catheterization for a few wall myocardial infarction details discussed above Plan: The patient was seen and evaluated by Dr. Craft. She is cleared for discharge from the pulmonary standpoint. She is again educated regarding the importance of complete smoking cessation. NicoDerm in place. She could follow- up in our office in 1-2 weeks' time. We'll perform full pulmonary function testing to evaluate the severity of her suspected chronic obstructive pulmonary disease. I, the cosigning physician, performed a history & physical examination of the patient. Lungs sounds clear, diminished. Maintaining good O2 saturations in the 90s on room air. I discussed the assessment and plan of care with my nurse practitioner, Zaria Smith. I attest to the above note as dictated by her.
[2019-05-04 13:38] VITALS: BP 149/81; PULSE 78; TEMP 97.7
--- NOTE | 2019-05-04 14:25 | P.DS ---
Providers Date of admission: 05/02/19 03:54 Expected date of discharge: 05/04/19 Attending physician: Hank Ndiaye Consults: 05/02/19 03:43 Consult Physician Routine Consulting Provider: [facility] Consult Reason/Comments: Near syncope; Chest Pressure Do you want consulting provider notified?: Yes 05/02/19 09:20 Consult Physician Routine Consulting Provider: Virgil Craft Consult Reason/Comments: pneumonia Do you want consulting provider notified?: Yes Primary care physician: Hank Ndiaye [facility] Course: Discharge diagnosis 1. Increased shortness of breath possibly related to pneumonia. Chest x-ray completed showing unchanged heart size. Increased opacity in the right lower lobe, possibly infection or atelectasis and pleural effusion. Patient started on Rocephin and azithromycin. DuoNeb breathing treatments ordered. Sputum culture ordered. Pulmonary services consulted. Repeat chest x-ray showing correlation for atelectasis versus pneumonia suspect underlying interstitial lung disease emphysema follow-up suggested. Patient remains on IV antibiotics, services are following 2. Chest pain with dizziness. Troponins negative 2. Cardiology services have been consulted. . 2-D echo completed showing EF of 55-60% with mild to moderate tricuspid regurg present [id number] management mitral regurg. Stress test showing no evidence for reversible ischemia. Patient to be maintained on Plavix and follow-up outpatient with cardiology services 3 History of inferior wall myocardial infarction. Patient underwent stents to RCA and LAD proximal Lasix weeks ago. Patient has been taking Plavix. 4. Possible urinary tract infection. UA showing moderate amount of leukocyte esterase possible contamination. Patient is on Rocephin. Urine culture ordered 5. History of hyperlipidemia 6. History of essential hypertension 7. History of osteoporosis 8. History of hypothyroidism 9. Chronic back pain 10. Nicotine dependence. Patient educated longer than 3 minutes smoking cessation. Nicotine patch has been ordered Hospital course This is a 58-year-old female patient who presents to ER with complaints of dizziness shortness of breath and chest pain. Patient recently underwent a cardiac cath in which she received stents to RCA approximately 6 weeks ago patient reports that this was her first day back at work she started to experiencing dizziness and fatigue along with chest pain and shortness of breath. Additional medical history includes hyperlipidemia, hypertension, myocardial infarction, osteoarthritis and hypothyroidism and ex-smoker. Chest x-ray completed showing unchanged heart size. Increased opacity seen in the right lower lobe possibly infection or atelectasis no pleural effusion. EKG completed showing normal sinus rhythm. Inferior infarct, age undetermined. Troponins negative 2. Patient reports that she has been taking her medications as prescribed including her Plavix. Patient with cell initially 13.1. Patient started on azithromycin and Rocephin. Cardiology and pulmonary services have been consulted. At this time patient is resting comfortably in bed. Patient still complaining of cough with some shortness of breath. Patient denies a chest pain at this time. Patient denies nausea vomiting or diarrhea. Patient denies any urinary burning or frequency. On 05/03/2019 patient is alert and oriented 3. Patient underwent stress test awaiting results. Patient remains on Rocephin and azithromycin per pulmonary for pneumonia. Patient complaining of shakiness. Will check blood sugar. Patient also requesting nicotine patch. Nicotine patch will be ordered. Patient denies any chest pain or shortness of breath. Patient denies nausea vomiting or diarrhea. Patient denies any urinary burning or frequency on 05/04/2019 patient is alert and oriented 3. Awaiting final clearance from cardiology for discharge. Patient will be DC'd on Omnicef. Patient has been cleared by pulmonary patient feels improved today. Patient to follow-up with PCP for further management. Discussed smoking cessation. At this time patient denies chest pain or shortness of breath. Patient denies nausea vomiting or diarrhea. Patient denies any urinary burning or frequency I performed an examination of the patient and discussed their management with the Nurse Practitioner. I have reviewed the Nurse Practitioner's notes and agree with the documented findings and plan of care Patient Condition at Discharge: Stable Plan - Discharge Summary Discharge Rx Participant: No New Discharge Prescriptions: New Cefdinir [Omnicef] 300 mg PO BID 7 Days #14 cap Continue Levothyroxine Sodium [Synthroid] 100 mcg PO DAILY Nicotine 21Mg/24Hr Patch [Habitrol] 1 patch TRANSDERM DAILY Aspirin 81 mg PO DAILY #39 chew Atorvastatin [Lipitor] 80 mg PO HS #30 tab Nitroglycerin Sl Tabs [Nitrostat] 0.4 mg SUBLINGUAL Q5M PRN #25 tab PRN Reason: Chest Pain Metoprolol Succinate (ER) [Toprol XL] 25 mg PO DAILY #30 tab.er.24h Lisinopril [Zestril] 5 mg PO DAILY #30 tab Clopidogrel Bisulfate [Plavix] 75 mg PO DAILY HYDROcodone/APAP 5-325MG [[place] 5-325] 1 tab PO Q6H PRN PRN Reason: Pain Discharge Medication List Levothyroxine Sodium [Synthroid] 100 mcg PO DAILY 02/07/19 [History] Nicotine 21Mg/24Hr Patch [Habitrol] 1 patch TRANSDERM DAILY 03/07/19 [History] Aspirin 81 mg PO DAILY #39 chew 03/11/19 [Rx] Atorvastatin [Lipitor] 80 mg PO HS #30 tab 03/11/19 [Rx] Lisinopril [Zestril] 5 mg PO DAILY #30 tab 03/11/19 [Rx] Metoprolol Succinate (ER) [Toprol XL] 25 mg PO DAILY #30 tab.er.24h 03/11/19 [Rx] Nitroglycerin Sl Tabs [Nitrostat] 0.4 mg SUBLINGUAL Q5M PRN #25 tab 03/11/19 [Rx] Clopidogrel Bisulfate [Plavix] 75 mg PO DAILY 05/02/19 [History] HYDROcodone/APAP 5-325MG [[place] 5-325] 1 tab PO Q6H PRN 05/02/19 [History] Cefdinir [Omnicef] 300 mg PO BID 7 Days #14 cap 05/04/19 [Rx] Follow up Appointment(s)/Referral(s): Hank Ndiaye MD [Primary Care Provider] - 05/14/19 1:30 pm Leandro Magallon MD [STAFF PHYSICIAN] - 05/16/19 1:30 pm (Out of office until this date. ) Patient Instructions/Handouts: Heart Healthy Diet (DC), Near Syncope (DC), Pneumonia (DC) Discharge/Stand Alone Forms: Work/School Release Discharge Disposition: HOME SELF-CARE
--- NOTE | 2019-05-04 16:26 | P.PN ---
Subjective Progress Note Date: 05/04/19 This is a 58-year-old female with history of ischemic heart disease with history of stent placement of the RCA and also LAD done about 6 weeks ago. This patient is admitted to the hospital with complaints of shortness of breath and tingling all over the body while she was pushing the cart at work. EKG did not reveal any acute changes. Cardiac enzymes are negative. A nuclear stress test showed normal perfusion and function. Echo [place] did show moderately severe mitral regurgitation. LV function is preserved. Patient is critically stable. Patient is being discharged home to have follow-up with Dr. Zhang. Her mitral regurgitation may need to be monitored. Objective - Vital Signs Vital signs: Vital Signs Temp 97.7 F 05/04/19 11:30 Pulse 78 05/04/19 11:30 Resp 18 05/04/19 11:30 BP 149/81 05/04/19 11:30 Pulse Ox 98 05/04/19 11:30 Intake & Output 05/03/19 05/04/19 05/04/19 18:59 06:59 18:59 Intake Total 222 960 Output Total 600 Balance -378 960 Weight 88.6 kg Intake: Oral 222 960 Output: Urine 600 Other: Voiding Method Toilet Toilet # Voids 1 1 1 - Exam GENERAL EXAM: Patient is alert and oriented and doesn't appear to be in any acute distress HEENT: Normocephalic. Normal reaction of pupils, equal size, normal range of extraocular motion. No erythema or exudates in the throat. NECK: No masses, no nuchal rigidity. CHEST: No chest wall deformity. LUNGS: Equal air entry with no crackles or wheeze. HEART: S1 and S2 normal with no audible mumurs or gallops. Regular rhythm, femorals equal on both sides.. ABDOMEN: No hepatosplenomegaly, normal bowel sounds, no guarding or rigidity. SKIN: No rashes CENTRAL NERVOUS SYSTEM: No focal deficits. EXTREMITIES: No cyanosis, clubbing or edema. - Labs CBC & Chem 7: 05/04/19 06:29 05/04/19 06:29 Labs: Abnormal Lab Results - Last 24 Hours (Table) 05/04/19 05/04/19 Range/Units 06:29 06:29 Hgb 10.9 L (11.4-16.0) gm/dL Chloride 110 H (98-107) mmol/L Glucose 115 H (74-99) mg/dL Assessment and Plan (1) Shortness of breath Status: Acute Code(s): R06.02 - SHORTNESS OF BREATH SNOMED Code(s): 211320673 (2) Dizziness Status: Acute Code(s): R42 - DIZZINESS AND GIDDINESS SNOMED Code(s): 592833874 (3) History of inferior wall myocardial infarction Status: Acute Code(s): I25.2 - OLD MYOCARDIAL INFARCTION SNOMED Code(s): 835641381 (4) CAD (coronary artery disease) Status: Acute Code(s): I25.10 - ATHSCL HEART DISEASE OF [place] CORONARY ARTERY W/O ANG PCTRS SNOMED Code(s): 56824763 Plan: Patient is clinically stable. Stress test is negative for ischemia. Echo showed good LV function with moderate to severe mitral regurgitation. Follow-up with Dr. Zhang
== END 2019-05-04 15:35 | disposition home or self-care (01) ==
LOC: EC 00:27 → 3SCARD 03:54
PROVIDERS: ADMIT Internal Medicine; ATTEND Internal Medicine
DX: R06.02 Shortness of breath (principal); R07.89 Other chest pain; R05 Cough; R42 Dizziness and giddiness; R11.0 Nausea; R20.2 Paresthesia of skin; R55 Syncope and collapse; R06.00 Dyspnea, unspecified; R53.83 Other fatigue; I25.2 Old myocardial infarction; I08.1 Rheumatic disorders of both mitral and tricuspid valves; E78.5 Hyperlipidemia, unspecified; I10 Essential (primary) hypertension; M81.0 Age-related osteoporosis without current pathological fracture; E03.9 Hypothyroidism, unspecified; G89.29 Other chronic pain; M54.9 Dorsalgia, unspecified; M54.2 Cervicalgia; M17.0 Bilateral primary osteoarthritis of knee; I25.10 Atherosclerotic heart disease of native coronary artery without angina pectoris; E66.9 Obesity, unspecified; Z68.38 Body mass index [BMI] 38.0-38.9, adult; Z95.5 Presence of coronary angioplasty implant and graft; F17.200 Nicotine dependence, unspecified, uncomplicated; Z79.890 Hormone replacement therapy; Z79.02 Long term (current) use of antithrombotics/antiplatelets; Z79.82 Long term (current) use of aspirin; Z79.899 Other long term (current) drug therapy; Z88.8 Allergy status to other drugs, medicaments and biological substances; Z80.1 Family history of malignant neoplasm of trachea, bronchus and lung
CPT/HCPCS: 96366 ×2; 96372 ×3; 96361; 96365; 96367; 96375; 99285; 36415; 94640 ×6; 94760; 93005; 93017; 93306; 80053 ×3; 82150; 83690; 84484; 85025 ×3; 85610; 85730; 81001; 87086; 84145; 71046 ×2; 78452; G0378 ×3; A9500; S4990 ×2; J1644 ×3; J2405; J0456 ×2; J0280; J0696 ×2

== ENCOUNTER 2021-05-28 | Emergency (ER) | payer OTHER | END 2021-05-28 03:26 | disposition home or self-care (01) ==

== ENCOUNTER → 2023-04-15 | Outpatient (CLI) | payer OTHER ==
[2023-04-15 20:54] LABS: Basophils # (A) 0.05 X 10*3/uL (0.00-0.10); Basophils % (A) 0.6 %; Eosinophils # (A) 0.34 X 10*3/uL (0.04-0.35); Eosinophils % (A) 3.8 %; HCT 32.3 % (37.2-46.3); HGB 9.7 g/dL (12.0-15.0); Immature Grans, Automated 0.4 %; MCH 22.5 pg (27.0-32.0); MCV 74.8 fL (80.0-97.0); Mean Platelet Volume 10.8 fL (9.5-12.2); Monocytes # (A) 0.62 X 10*3/uL (0.20-1.00); Monocytes % (A) 6.9 %; NRBC Per 100 WBC 0 /100 WBCS (0.0-0.0); Neutrophils # (A) 6.08 X 10*3/uL (1.80-7.70); Neutrophils % (A) 67.3 %; Platelet Count 341 X 10*3/uL (140-440); RBC 4.32 X 10*6/uL (4.10-5.20); RDW 16.9 % (11.5-14.5); WBC 9.03 X 10*3/uL (4.50-10.00)
[2023-04-15 20:55] LABS: RBC Morphology NORMAL
[2023-04-15 21:17] LABS: % Iron Saturation 5.08 (12.00-45.00); Ferritin 10.9 ng/mL (10.0-291.0)
[2023-04-15 23:59] LABS: Gliadin AB IgA, Deaminated POSITIVE (NEGATIVE); Gliadin AB IgG, Deaminated NEGATIVE (NEGATIVE); Gliadin AB IgG, Unit <0.4 U/mL
== END | disposition home or self-care (01) ==
LOC: LABWHC1 11:51
PROVIDERS: ATTEND Nurse Practitioner Family
DX: D64.9 Anemia, unspecified (principal)
CPT/HCPCS: 36415; 82728; 83516; 83540; 83550; 85025

== ENCOUNTER → 2023-06-13 | Day surgery (SDC) | payer OTHER ==
[~2023-06-13] MED LIST: SIMETHICONE 40 MG/0.6 ML DROPS 2,000 MG/30 ML BOTTLE PO ONE
== END ==
LOC: ORWHC2ENDO 06:34
PROVIDERS: ATTEND Internal Medicine Gastroenterology
DX: D50.9 Iron deficiency anemia, unspecified (principal)
CPT/HCPCS: 91110

== ENCOUNTER 2023-07-15 12:33 | Day surgery (SDC) | payer OTHER ==
[2023-07-15] MEDS ORDERED: LACTATED RINGERS 1,000 ML IV ONE (14:34)
[2023-07-15 14:39] VITALS: RESP 16; TEMP 98
[2023-07-15] MEDS ORDERED: LACTATED RINGERS 1,000 ML IV SCH (14:39)
[2023-07-15 14:47] LABS: Glucose,Whole Blood 149 mg/dL (70-110)
[2023-07-15] MEDS ORDERED: LIDOCAINE 2% INJ 20 MG/ML (2 ML VIAL) ONE (15:59)
[2023-07-15] MEDS ORDERED: PROPOFOL 10 MG/ML 20 ML VIAL IV ONE (15:59)
--- NOTE | 2023-07-15 16:12 | P.PCN ---
Date of Procedure: 07/15/23 Procedure(s) Performed: BRIEF HISTORY: Patient is a 62-year-old, pleasant, white female scheduled for an upper endoscopy as a part of evaluation of iron deficiency anemia. She recently was noted to have intermittent black tarry stools and anemia with a hemoglobin of 8.5 g/dL. She small bowel capsule endoscopy done that showed active oozing in the duodenum hence scheduled for an upper endoscopy to evaluate further. She did have EGD and colonoscopy in June 2021 that revealed small hiatal hernia but colonoscopy was normal.. PROCEDURE PERFORMED: Esophagogastroduodenoscopy with cautery. PREOPERATIVE DIAGNOSIS: Iron deficiency anemia and intermittent black tarry stools and abdominal small bowel capsule that showed active oozing in the duodenum. IV sedation per anesthesia. PROCEDURE: After informed consent was obtained, the patient was brought into the endoscopy unit. IV sedation was administered by Anesthesia under continuous monitoring. Initially the Olympus GIF-140 video endoscope was inserted into the mouth. Esophagus intubated without any difficulty. It was gradually advanced into the stomach and duodenum and carefully examined. The bulb and the second part of the duodenum to nonbleeding angiectasia which were cauterized using a cold probe. The scope at this time was withdrawn to the stomach, adequately insufflated with air, and upon careful examination, mucosa of the antrum, body, cardia and the fundus appeared normal. The scope was then withdrawn into the esophagus. The GE junction was located at 39 cm from the incisors. The esophagus appeared normal. Small hiatal hernia noted. There were no erosions or ulcerations seen and the patient tolerated the procedure well. IMPRESSION: 1. 2 small nonbleeding angiectasia in the duodenal bulb status post cautery using a gold probe. 2. Small hiatal hernia. RECOMMENDATIONS: The findings of this examination were discussed with the patient as well as a family. She will continue with iron supplements twice daily and monitor CBC on a periodic basis. She'll be seen in office in 6 weeks..
[2023-07-15 16:36] VITALS: BP 116/72; PULSE 68
== END 2023-07-15 16:47 | disposition home or self-care (01) ==
LOC: ORWHC2ENDO 12:33
PROVIDERS: ATTEND Internal Medicine Gastroenterology
DX: K92.1 Melena (principal); D50.9 Iron deficiency anemia, unspecified; K44.9 Diaphragmatic hernia without obstruction or gangrene; I25.10 Atherosclerotic heart disease of native coronary artery without angina pectoris; I25.2 Old myocardial infarction; I10 Essential (primary) hypertension; E78.5 Hyperlipidemia, unspecified; F17.210 Nicotine dependence, cigarettes, uncomplicated; E11.9 Type 2 diabetes mellitus without complications; E03.9 Hypothyroidism, unspecified; K21.9 Gastro-esophageal reflux disease without esophagitis; Z79.899 Other long term (current) drug therapy
CPT/HCPCS: 43255; J2704; J2001